=== PATIENT | female | born 1960 | race Caucasian/White ===

== ENCOUNTER 2019-11-28 12:28 | Emergency (ER) | payer MEDICARE, SELFPAY ==
[2019-11-28 12:39] VITALS: BP 145/99; PULSE 93; RESP 20; TEMP 36.4; O2SAT 98
--- NOTE | 2019-11-28 12:49 | ED.EAR ---
HPI - Ear Problem General Chief complaint: Ear Stated complaint: left ear uncomfort Source: patient and RN notes reviewed Mode of arrival: ambulatory Limitations: no limitations History of Present Illness HPI Narrative: Patient is a 59-year-old female who presents complaining of left ear fullness. She reports intermittent pain. Reports a long history of sinus problems and surgeries. She denies other complaints at this time. MD Complaint: ear pain Location: left ear Related Data Home Medications Medication Instructions Recorded Confirmed gabapentin 100 mg PO TID 11/28/19 11/28/19 levothyroxine 125 mcg DAILY 11/28/19 11/28/19 magnesium oxide 400 mg DAILY 11/28/19 11/28/19 mycophenolate mofetil 500 mg PO BID 11/28/19 11/28/19 omeprazole 20 mg PO BID 11/28/19 11/28/19 tacrolimus 0.5 mg DAILY 11/28/19 11/28/19 tacrolimus 1 mg BID 11/28/19 11/28/19 Allergies Allergy/AdvReac Type Severity Reaction Status Date / Time erythromycin base Allergy Unknown Verified 09/14/17 15:59 Penicillins Allergy Unknown Verified 05/30/19 13:04 Review of Systems Review of Systems: Narrative: CONSTITUTIONAL: Denies fever, chills, or sweats. EYES: Denies visual changes, redness, or discharge. ENT: Denies rhinorrhea, congestion, sore throat, reports intermittent left otalgia. CARDIOVASCULAR: Denies chest pain, palpitations, or edema. RESPIRATORY: Denies cough or dyspnea. GASTROINTESTINAL: Denies abdominal pain, nausea, vomiting, or diarrhea. GENITOURINARY: Denies dysuria or hematuria. SKIN: Denies rash or itching. MUSCULOSKELETAL: Denies back pain, joint pain, or myalgia. NEUROLOGIC: Denies headache, numbness, dizziness, or weakness. PSYCHIATRIC: Denies anxiety or depression. [facility] Past Medical History Medical History Arthritis GERD (gastroesophageal reflux disease) Hypothyroidism Surgical History Surgical History Liver transplant recipient Family History Family History Other Diabetes mellitus Family history of malignant neoplasm of breast Family history of type 1 diabetes mellitus Social History Social History Smoking status: Never smoker Second hand tobacco smoke exposure: No Alcohol intake: never Gender identity (if verbalized by the patient): Female Exam Narrative: Exam Narrative: GENERAL: Well-appearing, well-nourished, and in no acute distress. HEAD: Normocephalic, atraumatic. EYES: EOMI. No redness or drainage. Conjunctiva are normal. ENT: Mucous membranes pink and moist. Nares clear. No rhinorrhea. TMs normal bilaterally. Throat normal. Uvula midline. NECK: AROM. Supple. No lymphadenopathy. CHEST: No respiratory distress. Clear to auscultation. HEART: Regular rate and rhythm. No murmur appreciated. Normal peripheral pulses. SKIN: Warm, dry, no rash. NEURO: No focal deficits. Alert and oriented x3. Gait steady. PSYCH: Normal affect. No signs of depression or anxiety. Course Vital Signs Vital signs: Vital Signs Temperature 36.4 C 11/28/19 12:39 Pulse Rate 93 11/28/19 12:39 Respiratory Rate 20 11/28/19 12:39 Blood Pressure 145/99 H 11/28/19 12:39 Pulse Oximetry 98 11/28/19 12:39 Temperature 36.4 C 11/28/19 12:39 Pulse Rate 93 11/28/19 12:39 Respiratory Rate 20 11/28/19 12:39 Blood Pressure 145/99 H 11/28/19 12:39 Pulse Oximetry 98 11/28/19 12:39 Medical Decision Making MDM Narrative Medical decision making narrative: Patient has normal exam. Tympanic membrane and bilateral ears is normal, no erythema or injection. Discussed results with patient. Discussed with patient that following up with ENT specialist should occur because of multiple complex ENT surgeries. Patient does not have an ENT at this time, referral provided. Patient is
== END 2019-11-28 12:56 | disposition home or self-care (01) ==
PROVIDERS: Emergency Provider Nurse Practitioner; PCP Family Medicine
DX: H92.02 Otalgia, left ear (principal); M19.90 Unspecified osteoarthritis, unspecified site; K21.9 Gastro-esophageal reflux disease without esophagitis; E03.9 Hypothyroidism, unspecified; Z94.4 Liver transplant status
CPT/HCPCS: 99211; G0463

== ENCOUNTER 2019-11-29 07:33 | Outpatient (CLI) | payer MEDICARE, SELFPAY ==
--- NOTE | ~2019-11-29 | US_ITS ---
EXAMINATION: US right upper quadrant EXAM DATE: 11/29/2019 08:24 INDICATION: History of liver transplant in February 2014. History of autoimmune hepatitis, cholecystecto my. TECHNIQUE: Multiple grayscale and Doppler images of the abdomen right upper quadrant were obtained (b y a technologist who performed the scan) and subsequently reviewed. There is no prior study for araceli thorpe. FINDINGS: The pancreatic head and body are normal in appearance. The pancreatic tail is not visualized. The l iver has normal echogenicity and contour. There are no focal liver lesions identified. There is no evidence of intrahepatic biliary duct dilation. Portal venous flow was seen in the hepatopedal, nor mal direction and has normal Doppler waveform. No right-sided hydronephrosis. Common bile duct measures 5 mm, which is normal. The gallbladder fossa is unremarkable. IMPRESSION: 1. Unremarkable abdominal ultrasound exam. Reviewed, dictated and finalized at location B. 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
== END 2019-11-29 07:34 | disposition home or self-care (01) ==
PROVIDERS: PCP Family Medicine
DX: Z94.4 Liver transplant status (principal)
CPT/HCPCS: 76705

== ENCOUNTER 2020-02-20 07:14 | Outpatient (RCR) | payer MEDICARE, SELFPAY ==
[2020-02-20 07:56] LABS: Hematocrit 38.1 % (37.0-47.0); Hemoglobin 12.5 g/dL (12.0-15.0); Mean Corpuscular HGB Conc 32.8 g/dl (32-36); Mean Corpuscular Hemoglobin 30.5 pg (26-34); Mean Corpuscular Volume 92.9 fl (80-100); Mean Platelet Volume 9.5 fl (7.4-10.4); Platelet Count Result 202 k/mm3 (150-375); White Blood Count 3.9 K/mm3 (4.5-10.0)
[2020-02-20 08:11] LABS: Alanine Aminotransferase 17 U/L (4-35); Albumin Level 4.4 g/dL (3.5-5.1); Alkaline Phosphatase 78 U/L (38-126); Aspartate Amino Transferase 29 U/L (14-36); Bilirubin,Total 0.3 mg/dL (0.2-1.3); Blood Urea Nitrogen 16 mg/dL (7-17); Carbon Dioxide 27 mmol/L (22-30); Chloride 104 mmol/L (98-107); Estimated Glomerular Filt Rate 57; Glucose 115 mg/dL (65-105); Potassium 4.3 mmol/L (3.4-5.0); Sodium 137 mmol/L (137-145)
[2020-02-22 04:12] LABS: GGT 11 U/L (3-70)
[2020-02-23 01:52] LABS: Tacrolimus Prograf 3.1 mcg/L
== END 2020-05-20 23:59 | disposition home or self-care (01) ==
LOC: ANHLAB 07:14
PROVIDERS: PCP Family Medicine; Visit Provider Internal Medicine Gastroenterology
DX: Z94.4 Liver transplant status (principal)
CPT/HCPCS: 36415; 80053; 80197; 82977; 85027

== ENCOUNTER 2020-03-29 12:12 | Outpatient (CLI) | payer MEDICARE, SELFPAY ==
--- NOTE | ~2020-03-29 | XR_ITS ---
XR knee LT 3V 03/29/2020 12:39 INDICATION: Left knee pain PROCEDURE: 3 views left knee COMPARISON: No prior studies for comparison. FINDINGS: Fracture, dislocation or subluxation is not identified. No significant joint effusion. The soft tissues appear within normal limits. No foreign bodies are identified. IMPRESSION: 1: NO ACUTE BONE OR JOINT ABNORMALITY IDENTIFIED. Reviewed, dictated and finalized at location A.
== END 2020-03-29 12:13 | disposition home or self-care (01) ==
PROVIDERS: PCP Family Medicine; Visit Provider Physician Assistant
DX: S89.92XA Unspecified injury of left lower leg, initial encounter (principal)
CPT/HCPCS: 73562

== ENCOUNTER 2020-05-11 15:07 | Outpatient (CLI) | payer MEDICARE, SELFPAY ==
--- NOTE | ~2020-05-11 | MM_ITS ---
EXAMINATION: MM screening aleks BI w nando HISTORY: Screening TECHNIQUE: Craniocaudal and mediolateral oblique 3-D tomosynthesis images were obtained and synthetic 2-D images were generated. CAD analysis was submitted and interpreted. COMPARISON: Comparison to multiple prior studies sequentially, with oldest reviewed study dated 03/04. BREAST PARENCHYMAL COMPOSITION: There are scattered areas of fibroglandular density. FINDINGS: There is no evidence of suspicious mass, calcification, or architectural distortion to sugg est malignancy in either breast. There has been no suspicious interval change. IMPRESSION: 1. No mammographic evidence of malignancy. 2. Recommend routine screening mammography in one year. BI-RADS Category 1: Negative Reviewed, dictated and finalized at location A.
== END 2020-05-11 15:08 | disposition home or self-care (01) ==
LOC: ANHIMG 15:09
PROVIDERS: PCP Family Medicine; Visit Provider Family Medicine
DX: Z12.31 Encounter for screening mammogram for malignant neoplasm of breast (principal)
CPT/HCPCS: 77063; 77067

== ENCOUNTER 2020-05-21 07:33 | Outpatient (RCR) | payer MEDICARE, SELFPAY ==
[2020-05-21 08:14] LABS: Hematocrit 41.7 % (37.0-47.0); Hemoglobin 13.6 g/dL (12.0-15.0); Mean Corpuscular HGB Conc 32.6 g/dl (32-36); Mean Corpuscular Hemoglobin 30.4 pg (26-34); Mean Corpuscular Volume 93.3 fl (80-100); Mean Platelet Volume 9.8 fl (7.4-10.4); Platelet Count Result 185 k/mm3 (150-375); Red Blood Count 4.47 M/mm3 (4.2-5.4); Red Cell Distribution Width 13.1 % (11.5-14.5); White Blood Count 4.1 K/mm3 (4.5-10.0)
[2020-05-21 08:27] LABS: Alanine Aminotransferase 39 U/L (4-35); Albumin Level 4.4 g/dL (3.5-5.1); Alkaline Phosphatase 78 U/L (38-126); Anion Gap 11.3 mmol/L (7-16); Aspartate Amino Transferase 39 U/L (14-36); Bilirubin,Total 0.5 mg/dL (0.2-1.3); Blood Urea Nitrogen 11 mg/dL (7-17); Calcium 9.4 mg/dL (8.4-10.2); Carbon Dioxide 27 mmol/L (22-30); Chloride 103 mmol/L (98-107); Estimated Glomerular Filt Rate 57; Glucose 108 mg/dL (65-105); Potassium 4.3 mmol/L (3.4-5.0); Sodium 137 mmol/L (137-145)
[2020-05-21 09:11] LABS: Free T4 Free Thyroxine 1.01 ng/mL (0.78-2.19)
[2020-05-22 18:18] LABS: GGT 16 U/L (3-70)
== END 2020-08-19 23:59 | disposition home or self-care (01) ==
LOC: ANHLAB 07:33
PROVIDERS: PCP Physician Assistant; Visit Provider Internal Medicine Gastroenterology
DX: Z51.81 Encounter for therapeutic drug level monitoring (principal); Z94.4 Liver transplant status; Z79.899 Other long term (current) drug therapy
CPT/HCPCS: 36415; 80053; 80197; 82977; 83735; 84439; 84443; 85027

== ENCOUNTER 2020-06-21 07:17 | Outpatient (CLI) | payer MEDICARE, SELFPAY ==
[2020-06-21 07:47] LABS: Basophils Percent Auto 0.6 % (0.2-1.2); Eosinophils Absolute Auto 0.1 K/mm3 (0-0.3); Eosinophils Percent Auto 3.3 % (0-4.4); Hematocrit 39.8 % (37.0-47.0); Hemoglobin 13.2 g/dL (12.0-15.0); Immature Granulocyte Absolute 0.01 K/mm3 (0.00-0.031); Immature Granulocyte Percent A 0.3 % (0-0.5); Lymphocytes Absolute Auto 1.19 K/mm3 (0.9-3.2); Lymphocytes Percent Auto 32.9 % (18.3-44.2); Mean Corpuscular HGB Conc 33.2 g/dl (32-36); Mean Corpuscular Hemoglobin 30.6 pg (26-34); Mean Corpuscular Volume 92.1 fl (80-100); Mean Platelet Volume 9.7 fl (7.4-10.4); Monocytes Absolute Auto 0.2 K/mm3 (0.1-0.6); Monocytes Percent Auto 5.8 % (2.6-8.5); Neutrophils Absolute Auto 2.1 K/mm3 (1.3-6.7); Neutrophils Percent Auto 57.1 % (45.5-73.1); Platelet Count Result 200 k/mm3 (150-375); Red Blood Count 4.32 M/mm3 (4.2-5.4); Red Cell Distribution Width 12.9 % (11.5-14.5); White Blood Count 3.6 K/mm3 (4.5-10.0)
[2020-06-21 07:57] LABS: Alanine Aminotransferase 35 U/L (4-35); Albumin Level 4.3 g/dL (3.5-5.1); Alkaline Phosphatase 75 U/L (38-126); Anion Gap 6 mmol/L (8-16); Aspartate Amino Transferase 37 U/L (14-36); Bilirubin,Total 0.5 mg/dL (0.2-1.3); Blood Urea Nitrogen 10 mg/dL (7-17); Calcium 9.4 mg/dL (8.4-10.2); Carbon Dioxide 28 mmol/L (22-30); Chloride 103 mmol/L (98-107); Estimated Glomerular Filt Rate 57; Glucose 109 mg/dL (65-105); Potassium 4.7 mmol/L (3.4-5.0); Sodium 137 mmol/L (137-145)
[2020-06-24 05:04] LABS: Tacrolimus Prograf 3.4 mcg/L
[2020-06-25 04:25] LABS: GGT 17 U/L (3-70)
== END 2020-06-21 07:18 | disposition home or self-care (01) ==
LOC: ANHLAB 07:20
PROVIDERS: PCP Physician Assistant; Visit Provider Internal Medicine Gastroenterology
DX: Z94.4 Liver transplant status (principal)
CPT/HCPCS: 36415; 80053; 80197; 82977; 85025

== ENCOUNTER 2020-12-19 07:10 | Outpatient (RCR) | payer MEDICARE, SELFPAY ==
[2020-09-20 07:38] LABS: Hematocrit 40.6 % (37.0-47.0); Hemoglobin 13.6 g/dL (12.0-15.0); Mean Corpuscular HGB Conc 33.5 g/dl (32-36); Mean Corpuscular Hemoglobin 30.6 pg (26-34); Mean Corpuscular Volume 91.2 fl (80-100); Mean Platelet Volume 9.4 fl (7.4-10.4); Platelet Count Result 191 k/mm3 (150-375); Red Blood Count 4.45 M/mm3 (4.2-5.4); Red Cell Distribution Width 12.7 % (11.5-14.5); White Blood Count 3.6 K/mm3 (4.5-10.0)
[2020-09-20 07:51] LABS: Alanine Aminotransferase 36 U/L (4-35); Albumin Level 4.1 g/dL (3.5-5.1); Alkaline Phosphatase 75 U/L (38-126); Anion Gap 7 mmol/L (8-16); Aspartate Amino Transferase 37 U/L (14-36); Bilirubin,Total 0.5 mg/dL (0.2-1.3); Blood Urea Nitrogen 12 mg/dL (7-17); Calcium 9.4 mg/dL (8.4-10.2); Carbon Dioxide 27 mmol/L (22-30); Chloride 104 mmol/L (98-107); Estimated Glomerular Filt Rate 57; Glucose 119 mg/dL (65-105); Potassium 4.5 mmol/L (3.4-5.0); Sodium 138 mmol/L (137-145)
[2020-09-23 20:24] LABS: Tacrolimus Prograf 2.8 mcg/L
[2020-10-09 21:55] LABS: GGT 18 U/L (3-70)
[2020-12-19 07:42] LABS: Hematocrit 40.8 % (37.0-47.0); Hemoglobin 13.3 g/dL (12.0-15.0); Mean Corpuscular HGB Conc 32.6 g/dl (32-36); Mean Corpuscular Hemoglobin 30.1 pg (26-34); Mean Corpuscular Volume 92.3 fl (80-100); Mean Platelet Volume 9.8 fl (7.4-10.4); Platelet Count Result 195 k/mm3 (150-375); Red Blood Count 4.42 M/mm3 (4.2-5.4); Red Cell Distribution Width 12.9 % (11.5-14.5); White Blood Count 3.3 K/mm3 (4.5-10.0)
[2020-12-19 08:01] LABS: Alanine Aminotransferase 26 U/L (4-35); Alkaline Phosphatase 75 U/L (38-126); Anion Gap 4 mmol/L (8-16); Aspartate Amino Transferase 31 U/L (14-36); Bilirubin,Total 0.4 mg/dL (0.2-1.3); Blood Urea Nitrogen 11 mg/dL (7-17); Calcium 8.9 mg/dL (8.4-10.2); Carbon Dioxide 31 mmol/L (22-30); Chloride 104 mmol/L (98-107); Estimated Glomerular Filt Rate 57; Glucose 111 mg/dL (65-105); Potassium 4.6 mmol/L (3.4-5.0); Sodium 139 mmol/L (137-145)
[2020-12-21 09:53] LABS: Tacrolimus Prograf 3.4 mcg/L
[2020-12-22 14:17] LABS: GGT 16 U/L (3-70)
== END 2020-12-19 23:59 | disposition home or self-care (01) ==
LOC: ANHLAB 07:10
PROVIDERS: PCP Family Medicine; Visit Provider Internal Medicine Gastroenterology
DX: Z94.4 Liver transplant status (principal)
CPT/HCPCS: 36415; 80053; 80197; 82977; 85027

== ENCOUNTER 2021-03-21 07:06 | Outpatient (RCR) | payer MEDICARE, SELFPAY ==
[2021-03-21 07:56] LABS: Alanine Aminotransferase 27 U/L (4-35); Alkaline Phosphatase 82 U/L (38-126); Anion Gap 6 mmol/L (8-16); Aspartate Amino Transferase 33 U/L (14-36); Bilirubin,Total 0.4 mg/dL (0.2-1.3); Blood Urea Nitrogen 14 mg/dL (7-17); Calcium 9.6 mg/dL (8.4-10.2); Carbon Dioxide 28 mmol/L (22-30); Chloride 106 mmol/L (98-107); Estimated Glomerular Filt Rate > 60; Glucose 105 mg/dL (65-105); Potassium 4.5 mmol/L (3.4-5.0); Sodium 140 mmol/L (137-145)
[2021-03-21 08:38] LABS: Hematocrit 40.4 % (37.0-47.0); Hemoglobin 12.9 g/dL (12.0-15.0); Mean Corpuscular HGB Conc 31.9 g/dl (32-36); Mean Corpuscular Hemoglobin 30.3 pg (26-34); Mean Corpuscular Volume 94.8 fl (80-100); Mean Platelet Volume 10.3 fl (7.4-10.4); Platelet Count Result 186 k/mm3 (150-375); Red Blood Count 4.26 M/mm3 (4.2-5.4); Red Cell Distribution Width 12.7 % (11.5-14.5); White Blood Count 3.6 K/mm3 (4.5-10.0)
[2021-03-25 08:25] LABS: GGT 15 U/L (3-70)
== END 2021-06-19 23:59 | disposition home or self-care (01) ==
LOC: ANHLAB 07:06
PROVIDERS: PCP Family Medicine; Visit Provider Internal Medicine Gastroenterology
DX: Z94.4 Liver transplant status (principal)
CPT/HCPCS: 36415; 80053; 80197; 82977; 85027

== ENCOUNTER 2021-05-16 07:55 | Outpatient (CLI) | payer MEDICARE, SELFPAY ==
--- NOTE | ~2021-05-16 | MM_ITS ---
EXAMINATION: MM screening aleks BI w nando HISTORY: Screening mammogram TECHNIQUE: Craniocaudal and mediolateral oblique 3-D tomosynthesis images were obtained and synthetic 2-D images were generated. CAD analysis was submitted and interpreted. COMPARISON: 05/11/2020, 04/29/2019, 03/04/2018 bilateral digital screening mammogram examinations BREAST PARENCHYMAL COMPOSITION: There are scattered areas of fibroglandular density. FINDINGS: New 6 mm circumscribed mass in the outer mid posterior left breast. Adjacent 2.7 mm circums cribed mass. New asymmetric increased density in the anterior outer right breast on CC projection. Bilateral diagnostic mammography and ultrasound examination are recommended. IMPRESSION: 1. New asymmetric increased density and anterior outer right breast on CC projection and new 6 mm and 2.7 mm circumscribed mass is in the outer mid left breast. 2. Bilateral diagnostic mammography and breast ultrasound examination are recommended. BI-RADS Category 0: Incomplete: Needs additional imaging evaluation. Reviewed, dictated and finalized at location A. IMPRESSION: 1. New asymmetric increased density and anterior outer right breast on CC proje ction and new 6 mm and 2.7 mm circumscribed mass is in the outer mid left breas t. 2. Bilateral diagnostic mammography and breast ultrasound examination are recom mended. BI-RADS Category 0: Incomplete: Needs additional imaging evaluation.
== END 2021-05-16 07:56 | disposition home or self-care (01) ==
LOC: ANHIMG 08:00
PROVIDERS: PCP Family Medicine; Visit Provider Family Medicine
DX: Z12.31 Encounter for screening mammogram for malignant neoplasm of breast (principal); R92.8 Other abnormal and inconclusive findings on diagnostic imaging of breast
CPT/HCPCS: 77063; 77067

== ENCOUNTER 2021-06-12 12:50 | Outpatient (CLI) | payer MEDICARE, SELFPAY ==
--- NOTE | ~2021-06-12 | MMUS_ITS ---
EXAMINATION: MM diagnostic aleks BI w nando, US breast BI limited HISTORY: Possible bilateral breast masses on screening mammogram TECHNIQUE: Additional 3-D tomosynthesis images of the breasts were performed and synthetic 2-D images were generated. CAD analysis was submitted and interpreted. High resolution limited bilateral breast ultrasound was performed. COMPARISON: 05/16/2021, 05/11/2020, 04/29/2019, 03/04/2018 FINDINGS: MAMMOGRAPHIC FINDINGS: Left breast: There is a 6 mm oval, obscured, low density mass in the middle third of the outer breast at the 2:00 location 8 cm from the nipple. Right breast: There is a persistent asymmetry in the middle third of the outer breast approximately 6 .5 cm from the nipple on the craniocaudal view. ULTRASOUND: Left breast: There is a 6 mm x 3 mm oval, circumscribed, parallel, hypoechoic mass with no posterior features or internal vascularity at the 2:00 location 5 cm from the nipple. Right breast: No sonographic correlate is identified for the asymmetry identified in the outer breast on the craniocaudal view. There is questionable 4 mm hypoechoic mass at the 1:00 location 2 cm from the nipple. IMPRESSION: 1. Probably benign left breast mass and right breast asymmetry. 2. Recommend 6 month follow-up bilateral diagnostic mammogram and ultrasound. BI-RADS category 3, probably benign findings. Reviewed, dictated and finalized at location A. IMPRESSION: 1. Probably benign left breast mass and right breast asymmetry. 2. Recommend 6 month follow-up bilateral diagnostic mammogram and ultrasound. BI-RADS category 3, probably benign findings.
== END 2021-06-12 12:51 | disposition home or self-care (01) ==
PROVIDERS: PCP Family Medicine; Visit Provider Physician Assistant
DX: R92.8 Other abnormal and inconclusive findings on diagnostic imaging of breast (principal)
CPT/HCPCS: 76642; 77062; 77066; G0279

== ENCOUNTER 2021-12-20 07:17 | Outpatient (RCR) | payer MEDICARE, SELFPAY ==
[2021-09-21 08:32] LABS: Alanine Aminotransferase 20 U/L (4-35); Albumin Level 4.4 g/dL (3.5-5.1); Alkaline Phosphatase 94 U/L (38-126); Anion Gap 8 mmol/L (8-16); Aspartate Amino Transferase 28 U/L (14-36); Bilirubin,Total 0.3 mg/dL (0.2-1.3); Blood Urea Nitrogen 12 mg/dL (7-17); Calcium 9.2 mg/dL (8.4-10.2); Carbon Dioxide 24 mmol/L (22-30); Chloride 103 mmol/L (98-107); Estimated Glomerular Filt Rate > 60; Glucose 110 mg/dL (65-110); Potassium 3.8 mmol/L (3.4-5.0); Sodium 135 mmol/L (137-145)
[2021-09-21 08:33] LABS: Hematocrit 40.3 % (37.0-47.0); Hemoglobin 13.6 g/dL (12.0-15.0); Mean Corpuscular HGB Conc 33.7 g/dl (32-36); Mean Corpuscular Hemoglobin 31.1 pg (26-34); Mean Corpuscular Volume 92.2 fl (80-100); Mean Platelet Volume 10.2 fl (7.4-10.4); Platelet Count Result 211 k/mm3 (150-375); Red Blood Count 4.37 M/mm3 (4.2-5.4); Red Cell Distribution Width 12.4 % (11.5-14.5); White Blood Count 3.8 K/mm3 (4.5-10.0)
[2021-09-24 14:44] LABS: Tacrolimus Prograf 3.8 mcg/L
[2021-09-24 16:58] LABS: GGT 13 U/L (3-70)
[2021-12-20 07:42] LABS: Hematocrit 42.9 % (37.0-47.0); Mean Corpuscular HGB Conc 32.6 g/dl (32-36); Mean Corpuscular Hemoglobin 30.8 pg (26-34); Mean Corpuscular Volume 94.3 fl (80-100); Mean Platelet Volume 9.6 fl (7.4-10.4); Platelet Count Result 200 k/mm3 (150-375); Red Blood Count 4.55 M/mm3 (4.2-5.4); Red Cell Distribution Width 12.8 % (11.5-14.5)
[2021-12-20 07:54] LABS: Alanine Aminotransferase 17 U/L (4-35); Albumin Level 4.2 g/dL (3.5-5.1); Alkaline Phosphatase 88 U/L (38-126); Anion Gap 8 mmol/L (8-16); Aspartate Amino Transferase 26 U/L (14-36); Bilirubin,Total 0.6 mg/dL (0.2-1.3); Blood Urea Nitrogen 13 mg/dL (7-17); Calcium 9.1 mg/dL (8.4-10.2); Carbon Dioxide 26 mmol/L (22-30); Chloride 106 mmol/L (98-107); Estimated Glomerular Filt Rate > 60; Glucose 110 mg/dL (65-110); Potassium 4.3 mmol/L (3.4-5.0); Sodium 140 mmol/L (137-145)
[2021-12-22 15:03] LABS: GGT 13 U/L (3-70)
[2021-12-24 01:22] LABS: Tacrolimus Prograf 3.5 mcg/L
== END 2021-12-20 23:59 | disposition home or self-care (01) ==
LOC: ANHLAB 07:17
PROVIDERS: PCP Family Medicine; Visit Provider Internal Medicine Gastroenterology
DX: Z94.4 Liver transplant status (principal)
CPT/HCPCS: 36415; 80053; 80197; 82977; 85027

== ENCOUNTER 2022-05-13 12:00 | Outpatient (CLI) | payer MEDICARE, SELFPAY ==
[2022-05-13 13:09] LABS: Free T4 Free Thyroxine 1.06 ng/mL (0.78-2.19)
[2022-05-17 06:48] LABS: Triiodothyronine T3 Free 2.8 pg/mL (2.3-4.2)
== END 2022-05-13 12:01 | disposition home or self-care (01) ==
LOC: ANHLAB 12:01
PROVIDERS: PCP Family Medicine; Visit Provider Physician Assistant
DX: E07.9 Disorder of thyroid, unspecified (principal); E03.9 Hypothyroidism, unspecified
CPT/HCPCS: 36415; 84439; 84443; 84481

== ENCOUNTER 2022-05-23 12:05 | Outpatient (CLI) | payer MEDICARE, SELFPAY ==
--- NOTE | ~2022-05-23 | MMUS_ITS ---
EXAMINATION: MM diagnostic aleks BI w nando, US breast LT limited HISTORY: Follow-up right breast asymmetry and left breast mass TECHNIQUE: Additional 3-D tomosynthesis images of the breasts were performed and synthetic 2-D images were generated. CAD analysis was submitted and interpreted. High resolution Limited left breast ultr asound was performed. COMPARISON: Comparison to multiple prior studies sequentially, with oldest reviewed study dated 03/04. BREAST PARENCHYMAL COMPOSITION: Breast composed of scattered areas of fibroglandular density FINDINGS: MAMMOGRAPHIC FINDINGS: Right breast is stable without evidence for malignancy. There is a stable small circumscribed radiolu cent mass in the upper outer quadrant of the left breast, unchanged compared with 05/16/2021. ULTRASOUND: Limited left breast ultrasound: At 2:00, 5 cm from the nipple there is a 6 mm cyst. No suspicious mas ses to suggest malignancy. IMPRESSION: 1. No evidence for malignancy in either breast. Benign findings. 2. Routine yearly screening mammogram and regular clinical breast examination are recommended. BI-RADS Category 2: Benign finding(s). Reviewed, dictated and finalized at location A. IMPRESSION: 1. No evidence for malignancy in either breast. Benign findings. 2. Routine yearly screening mammogram and regular clinical breast examination a re recommended. BI-RADS Category 2: Benign finding(s).
== END 2022-05-23 12:06 | disposition home or self-care (01) ==
LOC: ANHIMG 12:07
PROVIDERS: PCP Family Medicine; Visit Provider Physician Assistant
DX: R92.8 Other abnormal and inconclusive findings on diagnostic imaging of breast (principal)
CPT/HCPCS: 76642; 77062; 77066; G0279

== ENCOUNTER 2022-06-20 07:23 | Outpatient (RCR) | payer MEDICARE, SELFPAY ==
[2022-03-31 07:34] LABS: Basophils Percent Auto 0.6 % (0.2-1.2); Eosinophils Absolute Auto 0.1 K/mm3 (0-0.3); Eosinophils Percent Auto 2.3 % (0-4.4); Hematocrit 41.8 % (37.0-47.0); Hemoglobin 14.1 g/dL (12.0-15.0); Immature Granulocyte Absolute 0.01 K/mm3 (0.00-0.031); Immature Granulocyte Percent A 0.2 % (0-0.5); Lymphocytes Absolute Auto 1.58 K/mm3 (0.9-3.2); Mean Corpuscular HGB Conc 33.7 g/dl (32-36); Mean Corpuscular Hemoglobin 31.1 pg (26-34); Mean Corpuscular Volume 92.3 fl (80-100); Mean Platelet Volume 9.5 fl (7.4-10.4); Monocytes Absolute Auto 0.3 K/mm3 (0.1-0.6); Monocytes Percent Auto 7.1 % (2.6-8.5); Neutrophils Absolute Auto 2.7 K/mm3 (1.3-6.7); Neutrophils Percent Auto 56.8 % (45.5-73.1); Platelet Count Result 225 k/mm3 (150-375); Red Blood Count 4.53 M/mm3 (4.2-5.4); Red Cell Distribution Width 13.1 % (11.5-14.5); White Blood Count 4.8 K/mm3 (4.5-10.0)
[2022-03-31 07:45] LABS: Alanine Aminotransferase 16 U/L (6-35); Albumin Level 4.4 g/dL (3.5-5.1); Alkaline Phosphatase 93 U/L (38-126); Anion Gap 8 mmol/L (8-16); Aspartate Amino Transferase 24 U/L (14-36); Bilirubin,Total 0.6 mg/dL (0.2-1.3); Blood Urea Nitrogen 14 mg/dL (7-17); Calcium 8.9 mg/dL (8.4-10.2); Carbon Dioxide 23 mmol/L (22-30); Chloride 107 mmol/L (98-107); Estimated Glomerular Filt Rate 57; Glucose 115 mg/dL (65-110); Potassium 4.3 mmol/L (3.4-5.0); Sodium 138 mmol/L (137-145)
[2022-04-02 14:19] LABS: GGT 10 U/L (3-70)
[2022-04-03 06:23] LABS: Tacrolimus Prograf 3.8 mcg/L
[2022-06-20 09:18] LABS: Basophils Percent Auto 0.4 % (0.2-1.2); Eosinophils Absolute Auto 0.1 K/mm3 (0-0.3); Eosinophils Percent Auto 1.6 % (0-4.4); Hematocrit 40.7 % (37.0-47.0); Hemoglobin 13.5 g/dL (12.0-15.0); Immature Granulocyte Absolute 0.01 K/mm3 (0.00-0.031); Immature Granulocyte Percent A 0.2 % (0-0.5); Lymphocytes Absolute Auto 1.32 K/mm3 (0.9-3.2); Lymphocytes Percent Auto 29.6 % (18.3-44.2); Mean Corpuscular HGB Conc 33.2 g/dl (32-36); Mean Corpuscular Hemoglobin 30.8 pg (26-34); Mean Corpuscular Volume 92.7 fl (80-100); Mean Platelet Volume 10.2 fl (7.4-10.4); Monocytes Absolute Auto 0.3 K/mm3 (0.1-0.6); Monocytes Percent Auto 6.7 % (2.6-8.5); Neutrophils Absolute Auto 2.7 K/mm3 (1.3-6.7); Neutrophils Percent Auto 61.5 % (45.5-73.1); Platelet Count Result 217 k/mm3 (150-375); Red Blood Count 4.39 M/mm3 (4.2-5.4); Red Cell Distribution Width 12.5 % (11.5-14.5); White Blood Count 4.5 K/mm3 (4.5-10.0)
[2022-06-20 09:28] LABS: Alanine Aminotransferase 19 U/L (6-35); Albumin Level 4.1 g/dL (3.5-5.1); Alkaline Phosphatase 85 U/L (38-126); Anion Gap 9 mmol/L (8-16); Aspartate Amino Transferase 25 U/L (14-36); Bilirubin,Total 0.5 mg/dL (0.2-1.3); Blood Urea Nitrogen 11 mg/dL (7-17); Calcium 9.1 mg/dL (8.4-10.2); Carbon Dioxide 26 mmol/L (22-30); Chloride 105 mmol/L (98-107); Estimated Glomerular Filt Rate > 60; Glucose 104 mg/dL (65-110); Potassium 3.9 mmol/L (3.4-5.0); Sodium 140 mmol/L (137-145)
[2022-06-23 07:41] LABS: Tacrolimus Prograf 3.3 mcg/L
[2022-06-23 15:45] LABS: GGT 11 U/L (3-70)
== END 2022-06-29 23:59 | disposition home or self-care (01) ==
LOC: ANHLAB 07:23
PROVIDERS: PCP Family Medicine; Visit Provider Internal Medicine Gastroenterology
DX: Z51.81 Encounter for therapeutic drug level monitoring (principal); Z94.4 Liver transplant status; Z79.899 Other long term (current) drug therapy
CPT/HCPCS: 36415; 80053; 80197; 82652; 82977; 85025

== ENCOUNTER 2022-06-20 07:24 | Outpatient (CLI) | payer MEDICARE, SELFPAY ==
[2022-06-24 12:54] LABS: Vitamin D 1,25 (OH)2 Total 46 pg/mL (18-72); Vitamin D2 1,25 (OH)2 <8 pg/mL; Vitamin D3 1,25 (OH)2 46 pg/mL
== END 2022-06-20 07:25 | disposition home or self-care (01) ==
LOC: ANHLAB 07:26
PROVIDERS: PCP Family Medicine; Visit Provider Family Medicine
DX: E55.9 Vitamin D deficiency, unspecified (principal)
CPT/HCPCS: 36415; 82652

== ENCOUNTER 2022-09-19 07:08 | Outpatient (RCR) | payer MEDICARE, SELFPAY ==
[2022-09-19 07:56] LABS: Basophils Percent Auto 0.5 % (0.2-1.2); Eosinophils Absolute Auto 0.1 K/mm3 (0-0.3); Eosinophils Percent Auto 1.8 % (0-4.4); Hematocrit 41.2 % (37.0-47.0); Hemoglobin 13.6 g/dL (12.0-15.0); Immature Granulocyte Absolute 0.01 K/mm3 (0.00-0.031); Immature Granulocyte Percent A 0.3 % (0-0.5); Lymphocytes Percent Auto 31.6 % (18.3-44.2); Mean Corpuscular Hemoglobin 29.9 pg (26-34); Mean Corpuscular Volume 90.5 fl (80-100); Mean Platelet Volume 10.1 fl (7.4-10.4); Monocytes Absolute Auto 0.3 K/mm3 (0.1-0.6); Monocytes Percent Auto 7.4 % (2.6-8.5); Neutrophils Absolute Auto 2.2 K/mm3 (1.3-6.7); Neutrophils Percent Auto 58.4 % (45.5-73.1); Platelet Count Result 216 k/mm3 (150-375); Red Blood Count 4.55 M/mm3 (4.2-5.4); Red Cell Distribution Width 12.8 % (11.5-14.5); White Blood Count 3.8 K/mm3 (4.5-10.0)
[2022-09-19 08:14] LABS: Alanine Aminotransferase 26 U/L (6-35); Albumin Level 4.3 g/dL (3.5-5.1); Alkaline Phosphatase 77 U/L (38-126); Anion Gap 6 mmol/L (8-16); Aspartate Amino Transferase 27 U/L (14-36); Bilirubin,Total 0.6 mg/dL (0.2-1.3); Blood Urea Nitrogen 10 mg/dL (7-17); Calcium 9.1 mg/dL (8.4-10.2); Carbon Dioxide 28 mmol/L (22-30); Chloride 106 mmol/L (98-107); Estimated Glomerular Filt Rate > 60; Glucose 115 mg/dL (65-110); Potassium 3.9 mmol/L (3.4-5.0); Sodium 140 mmol/L (137-145)
[2022-09-23 06:19] LABS: GGT 12 U/L (3-65)
[2022-09-23 07:00] LABS: Tacrolimus Prograf 3.5 mcg/L
== END 2022-12-18 23:59 | disposition home or self-care (01) ==
LOC: ANHLAB 07:08
PROVIDERS: PCP Family Medicine; Visit Provider Internal Medicine Gastroenterology
DX: Z51.81 Encounter for therapeutic drug level monitoring (principal); Z94.4 Liver transplant status; Z79.899 Other long term (current) drug therapy
CPT/HCPCS: 36415; 80053; 80197; 82977; 85025

== ENCOUNTER 2023-02-02 10:43 | Outpatient (CLI) | payer MEDICARE, SELFPAY ==
[2023-02-02 11:54] LABS: Free T4 Free Thyroxine 1.41 ng/mL (0.78-2.19)
[2023-02-02 12:04] LABS: Thyroid Stimulating Hormone 0.117 uIU/mL (0.465-4.680)
[2023-02-05 04:00] LABS: Triiodothyronine T3 Free 3.1 pg/mL (2.3-4.2)
== END 2023-02-02 10:44 | disposition home or self-care (01) ==
LOC: ANHLAB 10:44
PROVIDERS: PCP Family Medicine; Visit Provider Physician Assistant
DX: E03.9 Hypothyroidism, unspecified (principal); E07.9 Disorder of thyroid, unspecified
CPT/HCPCS: 36415; 84439; 84443; 84481

== ENCOUNTER 2023-03-20 07:14 | Outpatient (RCR) | payer MEDICARE, SELFPAY ==
[2022-12-20 07:52] LABS: Basophils Percent Auto 0.6 % (0.2-1.2); Eosinophils Absolute Auto 0.1 K/mm3 (0-0.3); Eosinophils Percent Auto 2.1 % (0-4.4); Hematocrit 41.8 % (37.0-47.0); Hemoglobin 13.7 g/dL (12.0-15.0); Immature Granulocyte Absolute 0.02 K/mm3 (0.00-0.031); Immature Granulocyte Percent A 0.4 % (0-0.5); Lymphocytes Absolute Auto 1.49 K/mm3 (0.9-3.2); Mean Corpuscular HGB Conc 32.8 g/dl (32-36); Mean Corpuscular Hemoglobin 30.2 pg (26-34); Mean Corpuscular Volume 92.1 fl (80-100); Mean Platelet Volume 9.8 fl (7.4-10.4); Monocytes Absolute Auto 0.3 K/mm3 (0.1-0.6); Monocytes Percent Auto 6.7 % (2.6-8.5); Neutrophils Absolute Auto 2.9 K/mm3 (1.3-6.7); Neutrophils Percent Auto 59.2 % (45.5-73.1); Platelet Count Result 228 k/mm3 (150-375); Red Blood Count 4.54 M/mm3 (4.2-5.4); Red Cell Distribution Width 12.8 % (11.5-14.5); White Blood Count 4.8 K/mm3 (4.5-10.0)
[2022-12-20 07:53] LABS: Alanine Aminotransferase 21 U/L (6-35); Albumin Level 4.4 g/dL (3.5-5.1); Alkaline Phosphatase 89 U/L (38-126); Anion Gap 5 mmol/L (8-16); Aspartate Amino Transferase 25 U/L (14-36); Bilirubin,Total 0.4 mg/dL (0.2-1.3); Blood Urea Nitrogen 13 mg/dL (7-17); Calcium 9.1 mg/dL (8.4-10.2); Carbon Dioxide 29 mmol/L (22-30); Chloride 104 mmol/L (98-107); Estimated Glomerular Filt Rate > 60; Glucose 108 mg/dL (65-110); Potassium 4.3 mmol/L (3.4-5.0); Sodium 138 mmol/L (137-145)
[2022-12-22 12:35] LABS: Tacrolimus Prograf 2.8 mcg/L
[2022-12-24 06:09] LABS: GGT 13 U/L (3-65)
[2023-03-20 09:36] LABS: Basophils Percent Auto 0.5 % (0.2-1.2); Eosinophils Absolute Auto 0.1 K/mm3 (0-0.3); Eosinophils Percent Auto 1.9 % (0-4.4); Hematocrit 41.6 % (37.0-47.0); Hemoglobin 13.3 g/dL (12.0-15.0); Immature Granulocyte Absolute 0.01 K/mm3 (0.00-0.031); Immature Granulocyte Percent A 0.2 % (0-0.5); Lymphocytes Absolute Auto 1.32 K/mm3 (0.9-3.2); Lymphocytes Percent Auto 31.3 % (18.3-44.2); Mean Corpuscular Hemoglobin 30.2 pg (26-34); Mean Corpuscular Volume 94.3 fl (80-100); Mean Platelet Volume 10.2 fl (7.4-10.4); Monocytes Absolute Auto 0.3 K/mm3 (0.1-0.6); Monocytes Percent Auto 6.4 % (2.6-8.5); Neutrophils Absolute Auto 2.5 K/mm3 (1.3-6.7); Neutrophils Percent Auto 59.7 % (45.5-73.1); Platelet Count Result 213 k/mm3 (150-375); Red Blood Count 4.41 M/mm3 (4.2-5.4); Red Cell Distribution Width 12.9 % (11.5-14.5); White Blood Count 4.2 K/mm3 (4.5-10.0)
[2023-03-20 10:01] LABS: Alanine Aminotransferase 23 U/L (6-35); Albumin Level 4.2 g/dL (3.5-5.1); Alkaline Phosphatase 90 U/L (38-126); Anion Gap 8 mmol/L (8-16); Aspartate Amino Transferase 28 U/L (14-36); Bilirubin,Total 0.5 mg/dL (0.2-1.3); Blood Urea Nitrogen 13 mg/dL (7-17); Calcium 8.8 mg/dL (8.4-10.2); Carbon Dioxide 27 mmol/L (22-30); Chloride 105 mmol/L (98-107); Estimated Glomerular Filt Rate > 60; Glucose 105 mg/dL (65-110); Potassium 4.2 mmol/L (3.4-5.0); Sodium 140 mmol/L (137-145)
[2023-03-23 21:17] LABS: Tacrolimus Prograf 2.4 mcg/L
[2023-03-24 16:13] LABS: GGT 12 U/L (3-65)
== END 2023-03-20 23:59 | disposition home or self-care (01) ==
LOC: ANHLAB 07:14
PROVIDERS: PCP Family Medicine; Visit Provider Internal Medicine Gastroenterology
DX: Z51.81 Encounter for therapeutic drug level monitoring (principal); Z94.4 Liver transplant status; Z79.899 Other long term (current) drug therapy
CPT/HCPCS: 36415; 80053; 80197; 82977; 85025

== ENCOUNTER 2023-04-04 07:06 | Outpatient (CLI) | payer MEDICARE, SELFPAY ==
[2023-04-04 08:16] LABS: Thyroid Stimulating Hormone 0.199 uIU/mL (0.465-4.680)
[2023-04-10 00:09] LABS: Vitamin D 1,25 (OH)2 Total 73 pg/mL (18-72); Vitamin D2 1,25 (OH)2 <8 pg/mL; Vitamin D3 1,25 (OH)2 73 pg/mL
== END 2023-04-04 07:07 | disposition home or self-care (01) ==
PROVIDERS: PCP Family Medicine; Visit Provider Physician Assistant
DX: E07.9 Disorder of thyroid, unspecified (principal); E55.9 Vitamin D deficiency, unspecified; R79.89 Other specified abnormal findings of blood chemistry
CPT/HCPCS: 36415; 82306; 82652; 84439; 84443

== ENCOUNTER 2023-06-03 12:10 | Outpatient (CLI) | payer MEDICARE, SELFPAY ==
[2023-06-03 14:11] LABS: Thyroid Stimulating Hormone 0.507 uIU/mL (0.465-4.680); Total Triiodothyronine (T3) 0.99 NG/ML (0.97-1.69)
== END 2023-06-03 12:11 | disposition home or self-care (01) ==
PROVIDERS: PCP Family Medicine; Visit Provider Family Medicine
DX: E03.9 Hypothyroidism, unspecified (principal)
CPT/HCPCS: 36415; 84443; 84480

== ENCOUNTER 2023-06-20 07:01 | Outpatient (CLI) | payer MEDICARE, SELFPAY ==
[2023-06-20 07:51] LABS: Basophils Percent Auto 0.7 % (0.2-1.2); Eosinophils Absolute Auto 0.1 K/mm3 (0-0.3); Eosinophils Percent Auto 2.7 % (0-4.4); Hematocrit 41.1 % (37.0-47.0); Hemoglobin 13.6 g/dL (12.0-15.0); Immature Granulocyte Absolute 0.01 K/mm3 (0.00-0.031); Immature Granulocyte Percent A 0.2 % (0-0.5); Lymphocytes Absolute Auto 1.68 K/mm3 (0.9-3.2); Lymphocytes Percent Auto 37.8 % (18.3-44.2); Mean Corpuscular HGB Conc 33.1 g/dl (32-36); Mean Corpuscular Hemoglobin 30.5 pg (26-34); Mean Corpuscular Volume 92.2 fl (80-100); Mean Platelet Volume 9.9 fl (7.4-10.4); Monocytes Absolute Auto 0.3 K/mm3 (0.1-0.6); Monocytes Percent Auto 7.4 % (2.6-8.5); Neutrophils Absolute Auto 2.3 K/mm3 (1.3-6.7); Neutrophils Percent Auto 51.2 % (45.5-73.1); Platelet Count Result 224 k/mm3 (150-375); Red Blood Count 4.46 M/mm3 (4.2-5.4); White Blood Count 4.4 K/mm3 (4.5-10.0)
[2023-06-20 07:55] LABS: Alanine Aminotransferase 27 U/L (6-35); Albumin Level 4.3 g/dL (3.5-5.1); Alkaline Phosphatase 86 U/L (38-126); Anion Gap 4 mmol/L (8-16); Aspartate Amino Transferase 30 U/L (14-36); Bilirubin,Total 0.5 mg/dL (0.2-1.3); Blood Urea Nitrogen 11 mg/dL (7-17); Calcium 9.4 mg/dL (8.4-10.2); Carbon Dioxide 27 mmol/L (22-30); Chloride 105 mmol/L (98-107); Estimated Glomerular Filt Rate > 60; Glucose 118 mg/dL (65-110); Potassium 3.8 mmol/L (3.4-5.0); Sodium 136 mmol/L (137-145)
[2023-06-23 17:59] LABS: Tacrolimus Prograf 3.4 mcg/L
[2023-06-24 14:30] LABS: GGT 15 U/L (3-65)
== END 2023-06-20 07:02 | disposition home or self-care (01) ==
LOC: ANHLAB 07:06
PROVIDERS: PCP Family Medicine; Visit Provider Internal Medicine Gastroenterology
DX: Z94.4 Liver transplant status (principal)
CPT/HCPCS: 36415; 80053; 80197; 82977; 85025

== ENCOUNTER 2023-08-01 09:10 | Outpatient (CLI) | payer MEDICARE, SELFPAY ==
[2023-08-01 10:00] LABS: Free T4 Free Thyroxine 1.31 ng/mL (0.78-2.19)
== END 2023-08-01 09:11 | disposition home or self-care (01) ==
LOC: ANHLAB 09:12
PROVIDERS: PCP Family Medicine; Visit Provider Family Medicine
DX: E03.9 Hypothyroidism, unspecified (principal)
CPT/HCPCS: 36415; 84439

== ENCOUNTER 2023-08-12 09:52 | Outpatient (CLI) | payer MEDICARE, SELFPAY ==
--- NOTE | ~2023-08-12 | MM_ITS ---
EXAMINATION: MM screening aleks BI w nando HISTORY: Screening mammogram TECHNIQUE: Craniocaudal and mediolateral oblique 3-D tomosynthesis images were obtained and synthetic 2-D images were generated. CAD analysis was submitted and interpreted. COMPARISON: 05/23/2022 diagnostic bilateral mammogram and limited left breast ultrasound 06/12/2021 bilateral diagnostic mammography and Limited bilateral breast ultrasound 05/16/2021 bilateral screening BREAST PARENCHYMAL COMPOSITION: There are scattered areas of fibroglandular density. FINDINGS: There is an approximately 5.5 x 10 mm mass in the anterior inner mid left breast. Diagnosti c left mammogram and left breast ultrasound examination are recommended. Interval decreased size of the previously reported cyst in the lateral mid left breast. No suspicious mass or architectural distortion, malignant calcification, skin thickening or retractio n or significant new or developing density is noted otherwise. IMPRESSION: 1. 5.5 x 10 mm anterior inner mid left breast mass 2. Diagnostic left mammogram and left breast ultrasound examination are recommended. BI-RADS Category 0: Incomplete: Needs additional imaging evaluation. Reviewed, dictated and finalized at location A. IMPRESSION: 1. 5.5 x 10 mm anterior inner mid left breast mass 2. Diagnostic left mammogram and left breast ultrasound examination are recomme nded. BI-RADS Category 0: Incomplete: Needs additional imaging evaluation.
== END 2023-08-12 09:53 | disposition home or self-care (01) ==
LOC: ANHIMG 09:54
PROVIDERS: PCP Family Medicine; Visit Provider Family Medicine
DX: Z12.31 Encounter for screening mammogram for malignant neoplasm of breast (principal); R92.8 Other abnormal and inconclusive findings on diagnostic imaging of breast
CPT/HCPCS: 77063; 77067

== ENCOUNTER 2023-08-19 11:11 | Outpatient (CLI) | payer MEDICARE, SELFPAY ==
--- NOTE | ~2023-08-19 | MMUS_ITS ---
EXAMINATION: MM diagnostic aleks LT w nando, US breast LT limited HISTORY: Left breast mass on screening mammogram TECHNIQUE: Additional 3-D tomosynthesis images of the left breast were performed and synthetic 2-D im ages were generated. CAD analysis was submitted and interpreted. High resolution limited left breast ultrasound was performed. COMPARISON: 08/12/2023, 05/23/2022, 05/23/2021, 05/16/2021 FINDINGS: MAMMOGRAPHIC FINDINGS: There is an 8 mm x 5 mm oval, circumscribed, low density mass in the middle third of the inner breast at the 9:00 location, 4.5 cm from the nipple. No suspicious calcification or architectural distortio n are identified. ULTRASOUND: There is a 7 mm cyst at the 11:00 location, 3 cm from the nipple corresponding to the mammographic fi nding in question. In addition 3 mm round cyst is also noted at the 11:00 location, 2 cm from the nip ple. IMPRESSION: 1. No mammographic or sonographic evidence of malignancy. 2. Recommend routine screening mammography in one year. BI-RADS Category 2: Benign finding(s). Reviewed, dictated and finalized at location A. IMPRESSION: 1. No mammographic or sonographic evidence of malignancy. 2. Recommend routine screening mammography in one year. BI-RADS Category 2: Benign finding(s).
== END 2023-08-19 11:12 | disposition home or self-care (01) ==
LOC: ANHIMG 11:12
PROVIDERS: PCP Family Medicine; Visit Provider Physician Assistant
DX: R92.8 Other abnormal and inconclusive findings on diagnostic imaging of breast (principal)
CPT/HCPCS: 76642; 77061; 77065; G0279

== ENCOUNTER 2023-09-19 08:05 | Outpatient (RCR) | payer MEDICARE, SELFPAY ==
[2023-09-19 08:41] LABS: Basophils Percent Auto 0.5 % (0.2-1.2); Eosinophils Absolute Auto 0.1 K/mm3 (0-0.3); Eosinophils Percent Auto 2.3 % (0-4.4); Hematocrit 41.9 % (37.0-47.0); Hemoglobin 13.4 g/dL (12.0-15.0); Immature Granulocyte Absolute 0.01 K/mm3 (0.00-0.031); Immature Granulocyte Percent A 0.2 % (0-0.5); Lymphocytes Absolute Auto 1.38 K/mm3 (0.9-3.2); Lymphocytes Percent Auto 31.8 % (18.3-44.2); Mean Corpuscular Hemoglobin 30.2 pg (26-34); Mean Corpuscular Volume 94.4 fl (80-100); Mean Platelet Volume 9.9 fl (7.4-10.4); Monocytes Absolute Auto 0.3 K/mm3 (0.1-0.6); Monocytes Percent Auto 7.1 % (2.6-8.5); Neutrophils Absolute Auto 2.5 K/mm3 (1.3-6.7); Neutrophils Percent Auto 58.1 % (45.5-73.1); Platelet Count Result 205 k/mm3 (150-375); Red Blood Count 4.44 M/mm3 (4.2-5.4); Red Cell Distribution Width 12.6 % (11.5-14.5); White Blood Count 4.3 K/mm3 (4.5-10.0)
[2023-09-19 08:50] LABS: Alanine Aminotransferase 18 U/L (6-35); Albumin Level 4.2 g/dL (3.5-5.1); Alkaline Phosphatase 81 U/L (38-126); Anion Gap 10 mmol/L (8-16); Aspartate Amino Transferase 23 U/L (14-36); Bilirubin,Total 0.5 mg/dL (0.2-1.3); Blood Urea Nitrogen 18 mg/dL (7-17); Calcium 9.2 mg/dL (8.4-10.2); Carbon Dioxide 24 mmol/L (22-30); Chloride 106 mmol/L (98-107); Estimated Glomerular Filt Rate > 60; Glucose 102 mg/dL (65-110); Potassium 3.9 mmol/L (3.4-5.0); Sodium 140 mmol/L (137-145)
[2023-09-22 15:12] LABS: Tacrolimus Prograf 3.3 mcg/L
[2023-09-23 07:06] LABS: GGT 11 U/L (3-65)
== END 2023-12-18 23:59 | disposition home or self-care (01) ==
LOC: ANHLAB 08:05
PROVIDERS: PCP Family Medicine; Visit Provider Internal Medicine Gastroenterology
DX: Z94.4 Liver transplant status (principal)
CPT/HCPCS: 36415; 80053; 80197; 82977; 85025

== ENCOUNTER 2023-12-16 00:30 | Day surgery (SDC) | payer MEDICARE, SELFPAY ==
[2023-11-24 08:44] VITALS: BMI 31.1
--- NOTE | 2023-12-14 11:01 | PC.NURSE ---
Patient called regarding upcoming procedure. Reviewed preop instructions, appointment times, and procedure prep.
[2023-12-16 06:20] VITALS: BP 140/92; PULSE 82; RESP 16; TEMP 36.3; O2SAT 100; BMI 30.3
--- NOTE | 2023-12-16 06:30 | WPDANESEPPF ---
Anes - Initial Pre Proc Eval Procedure: Operation Date: 12/16/23 07:30 Proposed Procedures p Screening Colonoscopy - Bo Oates MD Date/Time: 12/16/23 06:30 Surgeon: Bo Oates MD Pre Op Diagnosis: neoplasm screening Patient Data Age: 63 Gender: F Height: 1.65 m Weight: 85 kg Allergies Allergy/AdvReac Type Severity Reaction Status Date / Time erythromycin base Allergy Unknown Unknown Verified 11/24/23 08:40 Penicillins Allergy Unknown Unknown Verified 11/24/23 08:40 Home Medications Medication Instructions Recorded Confirmed Type mycophenolate mofetil 500 mg tablet 500 mg PO BID 11/28/19 11/24/23 History multivitamin 1 tablet PO DAILY 02/28/21 11/24/23 History omeprazole 20 mg capsule,delayed 20 mg PO DAILY 05/15/22 11/24/23 History release tacrolimus 0.5 mg capsule, 2.5 mg PO DAILY 05/15/22 11/24/23 History immediate-release calcium carb,cit 300 mg-D3 200 1 tablet PO DAILY 04/07/23 11/24/23 History unit-min no.34-genistein 13.5 mg tablet (Citracal Plus Bone Density Builder) cholecalciferol (vitamin D3) 25 25 mcg PO DAILY 04/07/23 11/24/23 History mcg (1,000 unit) capsule levothyroxine 125 mcg tablet See Rx Instructions .Route 10/27/23 11/24/23 Rx .COMPLEX #90 tabs Patient hx anesthesia problems: none Family hx anesthesia problems: none Results Review: All pre-operative results and documents have been reviewed as part of the pre-operative evaluation. [facility] Past Medical History Medical History Abscess of axilla, left Adverse effect of antineoplastic and immunosuppressive drugs, sequela Arthritis Autonomic neuropathy in diseases classified elsewhere Body mass index [BMI] 30.0-30.9, adult (09/17/17) Closed nondisplaced fracture of fifth metatarsal bone of left foot Dietary counseling and surveillance (08/27/17) Encounter for gynecological examination (general) (routine) without abnormal findings GERD (gastroesophageal reflux disease) Hepatitis, autoimmune History of abnormal cervical Pap smear History of cirrhosis Hypothyroidism Hypothyroidism (acquired) Menopause 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 Personal history of immunosupression therapy Surgical History Surgical History H/O tubal ligation History of umbilical hernia repair Hx of liver transplant Liver transplant recipient Family History Family History Other Diabetes mellitus Family history of malignant neoplasm of breast Family history of type 1 diabetes mellitus Social History Social History Social History: Single Smoking status: Never smoker Second hand tobacco smoke exposure: No Alcohol intake: never Substance use: never Substance use type: does not use Lack of Transportation: No Lack of Food: Never True Current Housing: I Have Housing Concerned About Future Housing: No Difficulty Paying Gas/Electric Bills: No Difficulty Paying for Meds: No Currently Unemployed: YES Education: Decline to Answer Difficulty w/ Childcare or Family Care: No Living arrangements: with family Occupation/Education: unemployed Additional occupation/education comments: Disability Gender identity (if verbalized by the patient): Female Sexual Orientation (if Verbalized by the Patient): Straight or Heterosexual Spiritual care concerns: No Anes - Eval Final PreProcedure Day of Procedure 12/16/23 06:30 Patient weight: obese Heart: regular rate and rhythm Lungs: clear to auscultation Airway: Mallampati scale class II Neurological: alert and oriented Last oral intake: >/= 8 hours ASA classification: III Emergent: no Anesthetic plan: proceed Anesthesia type and monitoring: general GIVS and jeff
[2023-12-16] MEDS: LACTATED RINGERS 1,000 ML 150 ML IV CONT (06:45)
--- NOTE | 2023-12-16 07:30 | PM.HPGS ---
History of Present Illness History of Present Illness Consent: Risks, benefits, and alternatives have been discussed and questions answered. Patient agrees to proceed with procedure. Chief complaint: neoplasm screening Narrative: Maryana Emery is a 63 year old female here for screening colonoscopy, last one 10 years ago Review of Systems Constitutional: Constitutional: Denies headache(s) and Denies weakness Eyes: Eyes: Denies blurry vision ENT: Reports Normal hearing present, Denies headache(s) and Denies neck pain Cardiovascular: Cardiovascular: Denies chest pain and Denies dyspnea Respiratory: Respiratory: Denies dyspnea Gastrointestinal: Gastrointestinal: Reports no additional gastrointestinal complaints Genitourinary: Genitourinary: Denies dysuria Musculoskeletal: Musculoskeletal: Denies neck pain Integumentary/Breasts: Skin/Breast: Denies dry skin Neurologic: Reports Normal hearing present, Denies headache(s) and Denies weakness Psychiatric: Psychiatric: Denies anxiety Endocrine: Endocrine: Denies change in body appearance Hematologic/Lymphatic: Hematologic/Lymphatic: Denies easy bleeding Allergic/Immunologic: Allergic/Immunologic: Denies urticaria PMFSH Past Medical History Medical History (Updated 12/16/23 @ 07:31 by Bo Oates MD) Abscess of axilla, left Adverse effect of antineoplastic and immunosuppressive drugs, sequela Arthritis Autonomic neuropathy in diseases classified elsewhere Body mass index [BMI] 30.0-30.9, adult (09/17/17) Closed nondisplaced fracture of fifth metatarsal bone of left foot Colon cancer screening Dietary counseling and surveillance (08/27/17) Encounter for gynecological examination (general) (routine) without abnormal findings GERD (gastroesophageal reflux disease) Hepatitis, autoimmune History of abnormal cervical Pap smear History of cirrhosis Hypothyroidism Hypothyroidism (acquired) Menopause 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 Personal history of immunosupression therapy Surgical History Surgical History H/O tubal ligation History of umbilical hernia repair Hx of liver transplant Liver transplant recipient Family History Family History Other Diabetes mellitus Family history of malignant neoplasm of breast Family history of type 1 diabetes mellitus Social History Social History Social History: Single Smoking status: Never smoker Second hand tobacco smoke exposure: No Alcohol intake: never Substance use: never Substance use type: does not use Lack of Transportation: No Lack of Food: Never True Current Housing: I Have Housing Concerned About Future Housing: No Difficulty Paying Gas/Electric Bills: No Difficulty Paying for Meds: No Currently Unemployed: YES Education: Decline to Answer Difficulty w/ Childcare or Family Care: No Living arrangements: with family Occupation/Education: unemployed Additional occupation/education comments: Disability Gender identity (if verbalized by the patient): Female Sexual Orientation (if Verbalized by the Patient): Straight or Heterosexual Spiritual care concerns: No Meds Home Medications and Allergies Home Medications Medication Instructions Recorded Confirmed Type mycophenolate mofetil 500 mg tablet 500 mg PO BID 11/28/19 12/16/23 History multivitamin 1 tablet PO DAILY 02/28/21 12/16/23 History omeprazole 20 mg capsule,delayed 20 mg PO DAILY 05/15/22 12/16/23 History release tacrolimus 0.5 mg capsule, 2.5 mg PO DAILY 05/15/22 12/16/23 History immediate-release calcium carb,cit 300 mg-D3 200 1 tablet PO DAILY 04/07/23 12/16/23 History unit-min no.34-genistein 13.5 mg tablet (Citracal Plus Bone Density Builder) cholecalciferol
[2023-12-16 07:52] VITALS: BP 92/65; PULSE 76; RESP 27; O2SAT 97
[2023-12-16 08:02] VITALS: BP 117/65; PULSE 72; RESP 21; O2SAT 98
[2023-12-16 08:12] VITALS: BP 144/82; PULSE 72; RESP 24; O2SAT 98
== END 2023-12-16 08:20 | disposition home or self-care (01) ==
PROVIDERS: PCP Family Medicine; Visit Provider Internal Medicine Gastroenterology
PROC: 0DJD8ZZ Inspection of Lower Intestinal Tract, Via Natural or Artificial Opening Endoscopic (ICD-10-PCS; CPT 45378; principal; 2023-12-16 07:30)
DX: Z12.11 Encounter for screening for malignant neoplasm of colon (principal); K21.9 Gastro-esophageal reflux disease without esophagitis; E03.9 Hypothyroidism, unspecified; Z94.4 Liver transplant status
CPT/HCPCS: G0121; J2704; J7120

== ENCOUNTER 2023-12-23 07:10 | Outpatient (RCR) | payer MEDICARE, SELFPAY ==
[2023-12-23 07:49] LABS: Basophils Percent Auto 0.7 % (0.2-1.2); Eosinophils Absolute Auto 0.1 K/mm3 (0-0.3); Eosinophils Percent Auto 2.2 % (0-4.4); Hemoglobin 13.4 g/dL (12.0-15.0); Immature Granulocyte Absolute 0.01 K/mm3 (0.00-0.031); Immature Granulocyte Percent A 0.2 % (0-0.5); Lymphocytes Absolute Auto 1.33 K/mm3 (0.9-3.2); Lymphocytes Percent Auto 32.6 % (18.3-44.2); Mean Corpuscular HGB Conc 31.9 g/dl (32-36); Mean Corpuscular Hemoglobin 30.1 pg (26-34); Mean Corpuscular Volume 94.4 fl (80-100); Monocytes Absolute Auto 0.3 K/mm3 (0.1-0.6); Monocytes Percent Auto 6.6 % (2.6-8.5); Neutrophils Absolute Auto 2.4 K/mm3 (1.3-6.7); Neutrophils Percent Auto 57.7 % (45.5-73.1); Platelet Count Result 214 k/mm3 (150-375); Red Blood Count 4.45 M/mm3 (4.2-5.4); Red Cell Distribution Width 12.9 % (11.5-14.5); White Blood Count 4.1 K/mm3 (4.5-10.0)
[2023-12-23 08:04] LABS: Alanine Aminotransferase 24 U/L (6-35); Alkaline Phosphatase 75 U/L (38-126); Anion Gap 5 mmol/L (8-16); Aspartate Amino Transferase 31 U/L (14-36); Bilirubin,Total 0.6 mg/dL (0.2-1.3); Blood Urea Nitrogen 14 mg/dL (7-17); Carbon Dioxide 25 mmol/L (22-30); Chloride 108 mmol/L (98-107); Estimated Glomerular Filt Rate > 60; Glucose 111 mg/dL (65-110); Potassium 4.1 mmol/L (3.4-5.0); Sodium 138 mmol/L (137-145)
[2023-12-26 12:50] LABS: GGT 10 U/L (3-65)
== END 2024-03-22 23:59 | disposition home or self-care (01) ==
LOC: ANHLAB 07:10
PROVIDERS: PCP Family Medicine; Visit Provider Internal Medicine Gastroenterology
DX: Z94.4 Liver transplant status (principal)
CPT/HCPCS: 36415; 80053; 80197; 82977; 85025

== ENCOUNTER 2024-03-22 07:17 | Outpatient (RCR) | payer MEDICARE, SELFPAY ==
[2024-03-22 07:49] LABS: Basophils Percent Auto 0.8 % (0.2-1.2); Eosinophils Absolute Auto 0.1 K/mm3 (0-0.3); Eosinophils Percent Auto 1.8 % (0-4.4); Hematocrit 40.6 % (37.0-47.0); Hemoglobin 13.4 g/dL (12.0-15.0); Immature Granulocyte Absolute 0.01 K/mm3 (0.00-0.031); Immature Granulocyte Percent A 0.3 % (0-0.5); Lymphocytes Percent Auto 35.3 % (18.3-44.2); Mean Corpuscular Hemoglobin 30.4 pg (26-34); Mean Corpuscular Volume 92.1 fl (80-100); Mean Platelet Volume 9.9 fl (7.4-10.4); Monocytes Absolute Auto 0.3 K/mm3 (0.1-0.6); Monocytes Percent Auto 8.3 % (2.6-8.5); Neutrophils Absolute Auto 2.1 K/mm3 (1.3-6.7); Neutrophils Percent Auto 53.5 % (45.5-73.1); Platelet Count Result 208 k/mm3 (150-375); Red Blood Count 4.41 M/mm3 (4.2-5.4); Red Cell Distribution Width 12.7 % (11.5-14.5)
[2024-03-22 08:00] LABS: Alanine Aminotransferase 17 U/L (6-35); Alkaline Phosphatase 73 U/L (38-126); Anion Gap 5 mmol/L (4-12); Aspartate Amino Transferase 27 U/L (14-36); Bilirubin,Total 0.5 mg/dL (0.2-1.3); Blood Urea Nitrogen 22 mg/dL (7-17); Calcium 9.1 mg/dL (8.4-10.2); Carbon Dioxide 27 mmol/L (22-30); Chloride 107 mmol/L (98-107); Estimated Glomerular Filt Rate 56; Glucose 113 mg/dL (65-110); Potassium 4.3 mmol/L (3.4-5.0); Sodium 139 mmol/L (137-145)
[2024-03-25 11:19] LABS: GGT 9
[2024-03-25 11:20] LABS: Tacrolimus Prograf 3.6
== END 2024-06-20 23:59 | disposition home or self-care (01) ==
LOC: ANHLAB 07:17
PROVIDERS: PCP Family Medicine; Visit Provider Internal Medicine Gastroenterology
DX: Z94.4 Liver transplant status (principal)
CPT/HCPCS: 36415; 80053; 80197; 82977; 85025

== ENCOUNTER 2024-06-21 07:18 | Outpatient (RCR) | payer MEDICARE, SELFPAY ==
[2024-06-21 08:01] LABS: Basophils Percent Auto 0.7 % (0.2-1.2); Eosinophils Absolute Auto 0.1 K/mm3 (0-0.3); Eosinophils Percent Auto 2.4 % (0-4.4); Hematocrit 40.3 % (37.0-47.0); Hemoglobin 13.3 g/dL (12.0-15.0); Lymphocytes Absolute Auto 1.32 K/mm3 (0.9-3.2); Lymphocytes Percent Auto 32.3 % (18.3-44.2); Mean Corpuscular Hemoglobin 30.7 pg (26-34); Mean Corpuscular Volume 93.1 fl (80-100); Monocytes Absolute Auto 0.3 K/mm3 (0.1-0.6); Monocytes Percent Auto 7.8 % (2.6-8.5); Neutrophils Absolute Auto 2.3 K/mm3 (1.3-6.7); Neutrophils Percent Auto 56.8 % (45.5-73.1); Platelet Count Result 208 k/mm3 (150-375); Red Blood Count 4.33 M/mm3 (4.2-5.4); Red Cell Distribution Width 12.7 % (11.5-14.5); White Blood Count 4.1 K/mm3 (4.5-10.0)
[2024-06-21 08:16] LABS: Alanine Aminotransferase 16 U/L (6-35); Albumin Level 3.9 g/dL (3.5-5.1); Alkaline Phosphatase 70 U/L (38-126); Anion Gap 9 mmol/L (4-12); Aspartate Amino Transferase 30 U/L (14-36); Bilirubin,Total 0.5 mg/dL (0.2-1.3); Blood Urea Nitrogen 9 mg/dL (7-17); Calcium 9.2 mg/dL (8.4-10.2); Carbon Dioxide 26 mmol/L (22-30); Chloride 103 mmol/L (98-107); Estimated Glomerular Filt Rate > 60; Glucose 117 mg/dL (65-110); Potassium 3.9 mmol/L (3.4-5.0); Sodium 138 mmol/L (137-145)
[2024-06-21 18:12] LABS: GGT 9 U/L (3-65)
[2024-06-24 16:37] LABS: Tacrolimus Prograf 2.7 mcg/L
== END 2024-09-19 23:59 | disposition home or self-care (01) ==
LOC: ANHLAB 07:18
PROVIDERS: PCP Family Medicine; Visit Provider Internal Medicine Gastroenterology
DX: Z51.81 Encounter for therapeutic drug level monitoring (principal); Z79.899 Other long term (current) drug therapy; Z94.4 Liver transplant status
CPT/HCPCS: 36415; 80053; 80197; 82977; 85025

== ENCOUNTER 2024-10-01 06:59 | Outpatient (CLI) | payer MEDICARE, SELFPAY ==
[2024-10-01 07:36] LABS: Basophils Percent Auto 0.4 % (0.2-1.2); Eosinophils Absolute Auto 0.1 K/mm3 (0-0.3); Eosinophils Percent Auto 1.5 % (0-4.4); Hematocrit 39.9 % (37.0-47.0); Hemoglobin 13.4 g/dL (12.0-15.0); Immature Granulocyte Absolute 0.01 K/mm3 (0.00-0.031); Immature Granulocyte Percent A 0.2 % (0-0.5); Lymphocytes Absolute Auto 1.38 K/mm3 (0.9-3.2); Lymphocytes Percent Auto 30.1 % (18.3-44.2); Mean Corpuscular HGB Conc 33.6 g/dl (32-36); Mean Corpuscular Hemoglobin 30.5 pg (26-34); Mean Corpuscular Volume 90.9 fl (80-100); Mean Platelet Volume 9.6 fl (7.4-10.4); Monocytes Absolute Auto 0.3 K/mm3 (0.1-0.6); Monocytes Percent Auto 7.4 % (2.6-8.5); Neutrophils Absolute Auto 2.8 K/mm3 (1.3-6.7); Neutrophils Percent Auto 60.4 % (45.5-73.1); Platelet Count Result 208 k/mm3 (150-375); Red Blood Count 4.39 M/mm3 (4.2-5.4); Red Cell Distribution Width 12.6 % (11.5-14.5); White Blood Count 4.6 K/mm3 (4.5-10.0)
[2024-10-01 07:46] LABS: Alanine Aminotransferase 17 U/L (6-35); Albumin Level 4.1 g/dL (3.5-5.1); Alkaline Phosphatase 78 U/L (38-126); Anion Gap 3 mmol/L (4-12); Aspartate Amino Transferase 24 U/L (14-36); Bilirubin,Total 0.6 mg/dL (0.2-1.3); Blood Urea Nitrogen 14 mg/dL (7-17); Calcium 9.8 mg/dL (8.4-10.2); Carbon Dioxide 29 mmol/L (22-30); Chloride 106 mmol/L (98-107); Estimated Glomerular Filt Rate 56; Glucose 112 mg/dL (65-110); Potassium 4.2 mmol/L (3.4-5.0); Sodium 138 mmol/L (137-145)
[2024-10-01 23:24] LABS: GGT 10 U/L (3-65)
[2024-10-03 15:49] LABS: Tacrolimus Prograf 3.2 mcg/L
--- OUTSIDE RECORDS SUMMARY | 2024-10-04 20:36 | XMS_ITS | Encounter Summary ---
Author Organization [facility] Address [address] [place] [address]. [place], [place] [id number] [place] [id number] Care Team Providers Care Leather Etcher Name Role Phone Soha Briceno MD Primary Care Provider [phone] Encounter Details Date Type Department Care Team (Latest Contact Info) Description 06/01/2018 Abstract [facility] , Abundio Landeros MD Social History Tobacco Use Types Packs/Day Years Used Date Smoking Tobacco: Never Assessed Comments Unknown Sex and Gender Information Value Date Recorded Sex Assigned at Not on file Legal Sex Female 4:45 PM CDT Gender Identity Not on file Sexual Orientation Not on file documented as of this encounter Plan of Treatment Not on file documented as of this encounter Visit Diagnoses Not on filedocumented in this encounter Care Teams Leather Etcher Relationship Specialty Start Date End Date Soha Briceno MD [id number] [facility] [address] [place] [address] PCP - General FAMILY PRACTICE 07/29/18 documented as of this encounter
--- OUTSIDE RECORDS SUMMARY | 2024-10-04 20:36 | XMS_ITS | Encounter Summary ---
Author Organization [facility] Address [address] [place] [address]. [place] [address] [place] [address] Care Team Providers Care Flaker Tender Name Role Phone Unavailable Primary Care Provider Unavailabl e Encounter Details Date Type Department Care Team (Latest Contact Info) Description 06/23/2018 Abstract [facility] Thad Skaggs MD [address] [place] [id number] Social History Tobacco Use Types Packs/Day Years Used Date Smoking Tobacco: Never Assessed Comments Unknown Sex and Gender Information Value Date Recorded Sex Assigned at Not on file Legal Sex Female 4:45 PM CDT Gender Identity Not on file Sexual Orientation Not on file documented as of this encounter Last Filed Vital Signs Vital Sign Reading Time Taken Comments Blood Pressure 118/76 06/23/2018 9:23 AM CDT Pulse 69 06/23/2018 9:23 AM CDT Temperature - - Respiratory Rate - - Oxygen Saturation - - Inhaled Oxygen Concentration - - Weight 87.8 kg (193 lb 8 oz) 06/23/2018 9:23 AM CDT Height 160 cm (5' 3 ) 06/23/2018 9:23 AM CDT Body Mass Index 34.28 06/23/2018 9:23 AM CDT documented in this encounter Progress Notes * Generic Conversion MD Maryan - 06/23/2018 6:48 PM CDT Follow[facility] Authorization Release of Information First Name: Maryana Palma initial: Last Name: Rupert Amador Elizabeth authorize [facility] to release any and all healthcare information about me to my [facility] personal health record for my own uses and purposes. I acknowledge thatch healthcare information may include the following: x-rays, clinical diagnosis, histories of present illnesses, immunizations, allergies, prescription drug information, laboratory results, diagnostic screening and testing, clinical procedures, medical research, clinical trials, billing, account,and insurance information. I acknowledge that such healthcare information may include information regarding mental health screenings and/or treatment, including psychotherapy notes; HIV/AIDS, infectious disease, sexually transmitted infection testing, screening, diagnosis, and/or treatment; genetic testing; history of domestic violence, child abuse, and/or family abuse; and, substance/alcohol use and treatment history. I acknowledge that with this authorization [facility] may disclose any information or records (within the scope of the authorization) that [facility] has received about me from other healthcare Practices or facilities. [facility] may, within its discretion, withhold from disclosure any of the above information as permitted or required by law. Access to treatment or services may not be denied to me if I decline to sign this Authorization or revoke my Authorization. However, without this Authorization, my Practice will not electronically release my healthcare information to my [facility] personal health record. I may revoke this Authorization at any time. Such revocation will promptly take effect except to the extent that [facility] already has acted based on this Authorization. I may revoke this Authorization by removing [facility] as a health care Practice with whichI want to be connected on my [facility] account or providing my request to [facility]. However, I acknowledge that data previously submitted by [facility] as authorized by me prior to my subsequent revocation of this Authorization will remain in my [facility] account. I understand that I may delete my [facility] account any time. This authorization shall end upon the earliest of: a) the termination of the connection between my healthcare Practice and my [facility] Account; or b) upon my written request submitted to [email or web address]. For Authorized Representatives of Patients younger than 18 years old: This Authorization shall upon the earliest of: (1) the date the minor reaches the age of 18; or (2) the date [facility] receives written revocation from the minor, as an emancipated minor with legal authority to managehis/her own healthcare. I understand that the information submitted to my [facility] account is subject to the privacy and security protections of applicable Federal and State laws. I further understand and acknowledge that the manner in which [facility] protects my personal information is detailed in the [facility] Privacy Policy and the [facility] Terms of Use. I understand that [facility] is not responsible for the security of data stored in the [facility] database, and that the owners of [facility] are responsible for ensuring the securityof the data stored in [facility]. I have the right to receive a copy of this Authorization and may do so by clicking [Print] above. Signed on 06/23/2018 Please complete the following information: Maryana Emery 1960 If signing on behalf of a Patient, please complete the following: Relationship to Patient: [Place x in the appropriate box below] [X] Patient [ ] Parent/Guardian/Other Legal Scale Attendant By clicking [I ACCEPT], I acknowledge and agree to the terms of this Authorization. * Thad Skaggs MD - 06/23/2018 9:00 AM CDT Reason For Visit New Patient Visit Referred By / Reason Patient was self-referred. Name: Reason: Peripheral neuropathy, possibly related to immunosuppresants Chief Complaint Peripheral neuropathy, possibly related to immunosuppressant medication History of Present Illness Ms. 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 Peripheral neuropathy: Patient reports onset of symptoms in 5418-1056 after her transplant, progressively getting worse, symptoms are more prominent in bilateral lower extremities, she has numbness in cold sensations alongwith loss of sensation in bilateral lower extremities, difficulty to wear flip-flops, heaviness, minimal balance issues related to that. Her symptoms are exacerbated by activity. She was previously seen by Dr. Jaime Davey at [facility] in [place], she had extensive evaluation for possible underlying etiologies. There was also report of significant alcohol use, bottle of wine every night. She also had progression of symptoms in upper extremities which included more of frequent spasms and cram ps. She did not have any recent falls related to neuropathy. She would occasionally stumble while walking, will have difficulty to walk in a straight line. She denied of any bowel or bladder incontinence. She reported some back pain, she suffered from sciatica but her current neuropathy is not related to sciatica. Based on the chart review, she also had minimal neuropathy symptoms prior to transplant and it progressed after she was put on prednisone and Prograf. She had nerve conduction study and EMG in April, which was suggestive of motor and sensory polyneuropathy affecting at least theleft leg, study in the arm was normal at that time. Towards the end of the visit, she also mentioned about ongoing disability claim and some information may be requested from neurology as well. 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 She also reported unusual sweating from her chin level to mid thoracic level, unclear etiology. Shefeels that some of her symptoms did get better after reducing the dose of Prograf. She was also offered gabapentin and Lyrica in the past but she did not want any medications. She was concerned aboutthe side effects and interactions, she preferred to discuss those medications with her transplant team before considering any of them. Review of Systems GENERAL: No fever, chills. SKIN: No rashes. HEENT: No cough, sore throat. CVS: No chest pain, palpitations. RS: No shortness of breath GI: No abdominal pain : No dysuria EXTREMITIES: No edema, cyanosis. MUSCULOSKELETAL: No muscle weakness. NEURO: As per HPI HEM: No unexplained bleeding or clotting ENDOCRINE: History of hypothyroidism PSYCH: No anxiety Active Problems 1. Neuropathy (355.9) (G62.9) Past Medical History 1. History of Alcohol abuse (305.00) (F10.10) 2. History of anemia (V12.3) (Z86.2) 3. History of blood transfusion (V15.89) (Z92.89) 4. History of cataract (V12.49) (Z86.69) 5. History of hepatic disease (V12.79) (Z87.19) 6. History of hypothyroidism (V12.29) (Z86.39) 7. History of kidney disease (V13.09) (Z87.448) Surgical History 1. History of paracentesis 2. History of Tubal Ligation (V25.2) Family History Mother 1. Family history of atrial fibrillation (V17.49) (Z82.49) 2. Family history of hypothyroidism (V18.19) (Z83.49) 3. Family history of liver cancer (V16.0) (Z80.0) 4. Family history of lung cancer (V16.1) (Z80.1) 5. Family history of osteoporosis (V17.81) (Z82.62) Father 6. Family history of malignant neoplasm of stomach (V16.0) (Z80.0) 7. Family history of type 2 diabetes mellitus (V18.0) (Z83.3) Family History 8. Family history of atrial fibrillation (V17.49) (Z82.49) 9. Family history of hypothyroidism (V18.19) (Z83.49) 10. Family history of liver cancer (V16.0) (Z80.0) 11. Family history of lung cancer (V16.1) (Z80.1) 12. Family history of malignant neoplasm of stomach (V16.0) (Z80.0) 13. Family history of osteoporosis (V17.81) (Z82.62) 14. Family history of type 2 diabetes mellitus (V18.0) (Z83.3) Social History ?? Lives with significant other ?? Never a smoker Current Meds 1. Clindamycin HCl - 300 MG Oral Capsule; Take one capsule one hour prior to dental work; Therapy: (Recorded:[id number]) to Recorded 2. Magnesium Oxide 400 MG Oral Capsule; TAKE 1 CAPSULE 3 times daily; Therapy: (Recorded:[id number]) to Recorded 3. Multiple Vitamins/Minerals TABS; TAKE 1 TABLET DAILY; Therapy: (Recorded:[id number]) to Recorded 4. Mycophenolate Mofetil 500 MG Oral Tablet; TAKE 1 TABLET Every twelve hours; Therapy: (Recorded:[id number]) to Recorded 5. PriLOSEC 20 MG CPDR; TAKE 1 CAPSULE Daily; Therapy: (Recorded:[id number]) to Recorded 6. Synthroid 125 MCG Oral Tablet; Take one tablet every morning Thursday-Thursday on empty stomach; Therapy: (Recorded:[id number]) to Recorded 7. Tacrolimus 1 MG Oral Capsule; Take 2 caps in the morning, 1 cap in the evening; Therapy: (Recorded:[id number]) to Recorded Allergies 1. amoxicillin 2. Penicillins Vitals Recorded: 23Jun2018 09:23AM Heart Rate 69 Systolic 118 Diastolic 76 Height 5 ft 3 in Weight 193 lb 8 oz BMI Calculated 34.28 BSA Calculated 1.91 Physical Exam CONSTITUTIONAL: In no apparent distress. Vital signs as above. HEENT: Neck supple RS: Nonlabored breathing CVS: Regular rate and rhythm MUSCULOSKELETAL: No cyanosis. Trace edema in bilateral lower extremities. Neurological Exam: MENTAL STATUS: Alert and oriented to person, place, time and reason for visit. Normal language, speech, memory, mood and behavior. No neglect appreciated. CRANIAL NERVES: visual juan intact to confrontation, pupils equally round and reactive to light, extraocular movements intact, Facial sensations intact, massater strength intact , face symmetric, tongue and uvula midline, normal hearing, no primary gaze or gaze evoked nystagmus, symmetric palate elevation, shoulder shrug normal. MOTOR: Pronator Drift: None bilaterally. Strength 5/5 in bilateral upper extremities, pain driven weakness in bilateral lower extremities, more than 4/5 bilaterally. Normal tone. No atrophy or fasciculations appreciated. No involuntary movements. REFLEXES: 2+ bilateral symmetric. Difficult to elicit ankle reflexes bilaterally. SENSORY: Intact to light touch. Reduced light touch, vibration and temperature sense in distal feet bilaterally as well as lateral leg up to lower one third of tibia. COORDINATION: Intact to finger to nose, no ataxia GAIT: Antalgic, difficulty to walk tandem, Romberg's negative. Assessment 1. Peripheral neuropathy (356.9) (G62.9) 2. History of alcoholism (V11.3) (F10.21) 3. Long-term use of immunosuppressant medication (V58.69) (Z79.899) #Peripheral neuropathy, could be related to alcohol and some component of Prograf related neuropathy: She had extensive workup and EMG in the past as mentioned in HPI. She did not have any EMG in the last 3 years, we can consider EMG and nerve conduction study for bilateral upper extremities in future if needed. She did not want to start gabapentin or Lyrica before discussing it with her transplantteam. She reported frequent stumbling while walking, I strongly suggested fall precautions. She had physical therapy in the past, she is not interested at this point. Plan -As we discussed, your neuropathy in bilateral lower extremities could be related to Prograf and have not improved much over last 4-5 years. -We can consider trial of Gabapentin or Lyrica if your transplant team agrees with that to help cramping and heaviness sensations. -Fall precautions. -Follow up in [address] Skaggs today in [facility]. Please do not hesitate to contact us with additional questions or concerns, you can reach us at [phone]. This note was created using dragon dictation, please excuse typos. Signatures Electronically signed by : Thad Skaggs M.D.; Jun 24 2018 12:30AM APPLICATIONS SYSTEMS ANALYST (Author) documented in this encounter Plan of Treatment Not on file documented as of this encounter Visit Diagnoses Not on filedocumented in this encounter
--- OUTSIDE RECORDS SUMMARY | 2024-10-04 20:36 | XMS_ITS | Encounter Summary ---
Author Organization [facility] Address [address] [place] [address]. [place], [place] [address] [place] [address] Care Team Providers Care Ice Grinder Name Role Phone Soha Briceno MD Primary Care Provider [phone]- [phone] Encounter Details Date Type Department Care Team (Latest Contact Info) Description 06/04/2018 Abstract [facility] , Abundio Landeros MD Social [...] on filedocumented in this encounter Care Teams Ice Grinder Relationship Specialty Start Date End Date Soha Briceno MD [address] [place] [address] PCP - General FAMILY PRACTICE 07/29/18 documented as of this encounter
--- OUTSIDE RECORDS SUMMARY | 2024-10-04 20:36 | XMS_ITS | Encounter Summary ---
Author Organization [facility] Address [address] [place] [address]. [place], [place] [address] [place] [address] Care Team Providers Care Switch Cleaner Name Role Phone Soha Briceno MD Primary Care Provider [phone]- [phone] Encounter Details Date Type Department Care Team (Latest Contact Info) Description 05/07/2015 Scan [facility] , Abundio Landeros MD Social [...] on filedocumented in this encounter Care Teams Switch Cleaner Relationship Specialty Start Date End Date Soha Briceno MD [address] [place] [address] PCP - General FAMILY PRACTICE 07/29/18 documented as of this encounter
--- OUTSIDE RECORDS SUMMARY | 2024-10-04 20:36 | XMS_ITS | Encounter Summary ---
Author Organization [facility] Address [address] [place] [address]. [place], [place] [id number] [place] [id number] Care Team Providers Care Chart Collector Name Role Phone Soha Briceno MD Primary Care Provider [phone]- [phone] Reason for Visit * Reason Comments Follow Up * Consultation (Routine) - Closed Specialty Diagnoses / Procedures Referred By Nicky oropeaz Referred To Contact NEUROLOGY Diagnoses neuropathy Procedures FOLLOW UP Soha Briceno MD [address] [facility] 162 [facility] 120 [place] [address] Phone: tel: fax: Thad Alfaro MD [address] [place] [address] Phone: tel: fax: Referral ID Status Reason Start Date Expiration Date Visits Re quested Visits Authorized [id number] Closed 08/24/2018 08/25/2019 10 10 Encounter Details Date Type Department Care Team (Late st Contact Info) Description 02/07/2019 10:00 AM CDT Office Visit [facility] - [address] [id number] Thad Alfaro MD [address] [place] [id number] Follow Up Social History Tobacco Use Types Packs/Day Years Used Date Smoking Tobacco: Never Smokeless Tobacco: Never Alcohol Use Standard Drinks/Week Comments No 0 (1 standard drink = 0.6 oz pure alcohol) History of alcohol use in the past Comments Unknown Sex and Gender Information Value Date Recorded Sex Assigned at Not on file Legal Sex Female 4:45 PM CDT Gender Identity Not on file Sexual Orientation Not on file documented as of this encounter Last Filed Vital Signs Vital Sign Reading Time Taken Comments Blood Pressure 116/78 02/07/2019 10:03 AM CDT Pulse 69 02/07/2019 10:03 AM CDT Temperature - - Respiratory Rate - - Oxygen Saturation - - Inhaled Oxygen Concentration - - Weight 85.7 kg (189 lb) 02/07/2019 10:03 AM CDT Height 167.6 cm (5' 6 ) 02/07/2019 10:03 AM CDT Body Mass Index 30.51 02/07/2019 10:03 AM CDT documented in this encounter Patient Instructions * Patient Instructions* Thad Alfaro MD - 02/07/2019 10:00 AM CDT -Continue Gabapentin 200 mg nightly for neuropathic pain. -Fall precautions. -Call us in case of worsening symptoms in future or if medication is not helping. I will request your Primary Care physician to adjust the Gabapentin to higher dose in future as needed. -Follow up as needed. You saw Dr. Alfaro today in [facility]. Please do not hesitate to contact us with additional questions or concerns, you can reach us at [phone]. Keeping track of your health record is easy and secure with [employer]. Please Go to [email or web address] to sign up. [employer] account allows you to request appointment, prescription refills, review your latest results as well as upcoming appointments. The access is 24 hours/day and 7 days/week. documented in this encounter Progress Notes * Norma Loera MA - 02/07/2019 10:00 AM CDT Review of Systems Constitutional: Negative for fever and weight loss. HENT: Negative for tinnitus. Eyes: Negative for double vision. Respiratory: Negative for shortness of breath. Cardiovascular: Negative for chest pain. Gastrointestinal: Negative for vomiting. Genitourinary: Negative for dysuria. Musculoskeletal: Negative for joint pain. Skin: Negative for rash. Endo/Heme/Allergies: Does not bruise/bleed easily. Psychiatric/Behavioral: Negative for suicidal ideas. Neurology: As per HPI. * Thad Alfaro MD - 02/07/2019 10:00 AM CDT Neurology Outpatient Follow Up Visit 02/07/2019 Patient:?Maryana Emery :?1960 Reason for Visit: Follow up for Peripheral Neuropathy Chief Complaint:??Peripheral Neuropathy, likely related to chemotherapy use. 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 Peripheral neuropathy: Her symptoms started in [id number] after transplant, progressively worsened, prominent bilateral lower extremities numbness and cold sensations, loss of sensation in bilateral lower extremities, difficult to wear flip-flops, heaviness feeling. She also endorsed minimal balance issues, exacerbation of symptoms with activity. She was seen by Dr. Jaime Davey at [facility] in [facility], she had extensive evaluation and some correlation for alcohol history (patient used to drink bottle of wine every night) was raised along with Prograf related neuropathy. She also had symptoms in bilateral upperextremities. Patient reported back pain and history of sciatica. She had EMG/NCV (Nerve and Muscle S tudy) in April, which was suggestive of motor and sensory neuropathy in left leg, normal study for arms. She also reported about ongoing disability claim. 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 She also reported unusual sweating from chin to mid thoracic level, unclear etiology. Her symptoms did not improve after reducing Prograf level. She was offered Gabapentin and Lyrica use in the past,she eventually started taking Gabapentin 100 mg nightly dose. Interval History: Patient is currently taking gabapentin 200 mg at nighttime. She is afraid of taking the medication in the morning. She continues to see her liver specialist in [place]. No side effects, no worsening of muscle cramping or neuropathic pain since last visit. She has minimal balance issues, recently had a fall at gas station, more likely mechanical in nature and uneven surface led to fall. I discussed with the patient that neuropathy symptoms are chronic in nature, she may need minimal medication adjustment in future which can be done by primary care physician. For any reason, if needed medication change or it is not helping, we can consider reevaluation in future otherwise follow-upas needed only. REVIEW OF SYSTEMS: Constitutional: Negative for fever and weight loss. HENT: Negative for tinnitus. Eyes: Negative for double vision. Respiratory: Negative for shortness of breath. Cardiovascular: Negative for chest pain. Gastrointestinal: Negative for vomiting. Genitourinary: Negative for dysuria. Musculoskeletal: Negative for joint pain. Skin: Negative for rash. Endo/Heme/Allergies: Does not bruise/bleed easily. Psychiatric/Behavioral: Negative for suicidal ideas. Neurologic: As per HPI. Remaining as per HPI. PAST MEDICAL HISTORY: Past Medical History: Diagnosis Date ??? Autoimmune hepatitis (CMS/HCC) ??? Cirrhosis (CMS/HCC) ??? Hypothyroidism ??? Immunosuppressed due to chemotherapy ??? Liver transplant aborted ??? Neuropathy due to chemotherapeutic drug (CMS/HCC) PAST SURGICAL HISTORY: Past Surgical History: Procedure Laterality Date ??? LIVER TRANSPLANTATION SOCIAL HISTORY: ?? Social History Socioeconomic History ??? Marital status: Unknown Spouse name: Not on file ??? Number of children: Not on file ??? Years of education: Not on file ??? Highest education level: Not on file Occupational History ??? Not on file Social Needs ??? Financial resource strain: Not on file ??? Food insecurity: Worry: Not on file Inability: Not on file ??? Transportation needs: Medical: Not on file Non-medical: Not on file Tobacco Use ??? Smoking status: Never Smoker ??? Smokeless tobacco: Never Used Substance and Sexual Activity ??? Alcohol use: No Comment: History of alcohol use in the past ??? Drug use: No ??? Sexual activity: Not on file Lifestyle ??? Physical activity: Days per week: Not on file Minutes per session: Not on file ??? Stress: Not on file Relationships ??? Social connections: Talks on phone: Not on file Gets together: Not on file Attends restorationism service: Not on file Active member of club or organization: Not on file Attends meetings of clubs or organizations: Not on file Relationship status: Not on file ??? Intimate partner violence: Fear of current or ex partner: Not on file Emotionally abused: Not on file Physically abused: Not on file Forced sexual activity: Not on file Other Topics Concern ??? Not on file Social History Narrative ??? Not on file MEDICATIONS: Current Outpatient Medications Medication Sig ??? AFLURIA QUADRIVALENT 0.5 ML injection ADM 0.5ML IM UTD ??? Calcium Carb-Cholecalciferol (CALCIUM CARBONATE-VITAMIN D3 OR) Take 1 tablet by mouth. ??? gabapentin 100 MG capsule Take 100 mg nightly. ??? hydrocodone-acetaminophen 5-325 MG tablet TK 1 T PO Q 4 TO 6 H PRN P ??? levothyroxine 125 MCG tablet TK 1 T PO QD ??? magnesium oxide 400 MG tablet Take 400 mg by mouth. ??? Multiple Vitamins tablet Take 1 tablet by mouth daily. ??? mycophenolate (CELLCEPT) 250 MG capsule Take 250 mg by mouth 2 (two) times daily. ??? mycophenolate mofetil 500 MG tablet ??? omeprazole (PRILOSEC) 20 MG capsule Take 1 capsule by mouth daily. ??? SHINGRIX injection Inject 0.5 mLs into the muscle. ??? tacrolimus 1 MG capsule ??? clindamycin 150 MG capsule TK 1 C PO QID TAT ??? clindamycin 300 MG capsule TK 2 CS PO ONE HOUR PRIOR TO DENTAL WORK ALLERGIES: Review of patient's allergies indicates: Amoxicillin and Penicillins Objective: Vital signs: Filed Vitals: 02/07/19 1003 BP: 116/78 Pulse: 69 Weight: 85.7 kg (189 lb) Height: 5' 6 (1.676 m) PHYSICAL EXAM: CONSTITUTIONAL: In no apparent distress. Vital signs as above. MUSCULOSKELETAL: No cyanosis. Trace edema in lower extremities. Neurological Exam: MENTAL STATUS: Alert and oriented to person, place, time and reason for visit. Normal language, speech, memory, mood and behavior. No neglect appreciated. CRANIAL NERVES: Cranial nerves II through XII are grossly intact. MOTOR: Moving all 4 extremities without any focal weakness. No atrophy or fasciculations appreciated. No involuntary movements. REFLEXES: 2+ bilateral symmetric. Reflexes absent at bilateral ankles. SENSORY: Intact to light touch. Reduced vibration sense in distal lower extremities, left worse than right. Normal joint position sense. COORDINATION: Intact to finger to nose, no ataxia GAIT: Slow and wide-based, no ataxia. Diagnostic Studies: No new imaging since last visit. Assessment and Plan: Encounter Diagnose(s) ICD-10-CM ICD-9-CM SNOMED CT(R) 1. Drug-induced polyneuropathy ([facility]) G62.0 357.6 POLYNEUROPATHY DUE TO DRUG E980.5 Patient Instructions -Continue Gabapentin 200 mg nightly for neuropathic pain. -Fall precautions. -Call us in case of worsening symptoms in future or if medication is not helping. I will request your Primary Care physician to adjust the Gabapentin to higher dose in future as needed. -Follow up as needed. You saw Dr. Alfaro today in [facility]. Please do not hesitate to contact us with additional questions or concerns, you can reach us at [phone]. Keeping track of your health record is easy and secure with [employer]. Please Go to [email or web address] to sign up. [employer] account allows you to request appointment, prescription refills, review your latest results as well as upcoming appointments. The access is 24 hours/day and 7 days/week. Plan discussed with patient who voiced understanding and agreed with the plan. Approximately 20 minutes were spent with the patient with greater than 30% of the time spent in counseling and coordination of care. Portions of this note were created using voice recognition software, please excuse any typos. THAD ALFARO MD 02/07/2019 10:28 AM [facility] documented in this encounter Plan of Treatment Not on file documented as of this encounter Visit Diagnoses Diagnosis Drug-induced polyneuropathy (CMS/HCC [facility])- Primary Polyneuropathy due to drugs documented in this encounter Care Teams Chart Collector Relationship Specialty Start Date End Date Soha Briceno MD [address] [facility] [address] [facility] 120 [place] [id number] PCP - General FAMILY PRACTICE 07/29/18 documented as of this encounter
--- OUTSIDE RECORDS SUMMARY | 2024-10-04 20:36 | XMS_ITS | Encounter Summary ---
Author Organization [facility] Address [address] [place] [address]. [place], [place] [address] [place] [address] Care Team Providers Care Poultry Husbandry Teacher Name Role Phone Soha Briceno MD Primary Care Provider +1- [phone] Encounter Details Date Type Department Care Team (Latest Contact Info) Description 04/23/2015 Scan [facility] , [place] [...] on filedocumented in this encounter Care Teams Poultry Husbandry Teacher Relationship Specialty Start Date End Date Soha Briceno MD [address] [facility] [address] [place] [address] PCP - General FAMILY PRACTICE 07/29/18 documented as of this encounter
--- OUTSIDE RECORDS SUMMARY | 2024-10-04 20:36 | XMS_ITS | Encounter Summary ---
Author Organization [facility] Address [address] [place] [address]. [place], [place] [address] [place] [address] Care Team Providers Care Archaeologist Name Role Phone Soha Briceno MD Primary Care Provider +1- [phone] Reason for Visit * Reason Comments Neuropathy * Consultation (Routine) - Closed Specialty Diagnoses / Procedures Referred By Nicky oropeza Referred To Contact NEUROLOGY Diagnoses neuropathy Procedures FOLLOW UP Soha Briceno MD [address] [facility] 162 [facility] [address] [place] [address] Phone: tel: fax: Thad Alfaro MD [address] [place] [address] Phone: tel: fax: Referral ID Status Reason Start Date Expiration Date Visits Re quested Visits Authorized [id number] Closed 08/24/2018 08/25/2019 10 10 Encounter Details Date Type Department Care Team (Late st Contact Info) Description 08/24/2018 11:00 AM MOBILE DEVELOPER Office Visit [facility] [address] [phone] Thad Alfaro MD [address] [place] [id number] Neuropathy Social History Tobacco Use Types Packs/Day Years [...] Sign Reading Time Taken Comments Blood Pressure 110/62 08/24/2018 11:09 AM MOBILE DEVELOPER Pulse 78 08/24/2018 11:09 AM MOBILE DEVELOPER Temperature - - Respiratory Rate - - Oxygen Saturation 98% 08/24/2018 11:09 AM MOBILE DEVELOPER Inhaled Oxygen Concentration - - Weight 86.2 kg (190 lb) 08/24/2018 11:09 AM MOBILE DEVELOPER Height 160 cm (5' 3 ) 08/24/2018 11:09 AM MOBILE DEVELOPER Body Mass Index 33.66 08/24/2018 11:09 AM MOBILE DEVELOPER documented in this encounter Patient Instructions * Patient Instructions* Thad Alfaro MD - 08/24/2018 11:00 AM MOBILE DEVELOPER -Start Gabapentin 300 mg capsule as below: Week 1: 300 mg nightly. Week 2 onwards: 300 mg twice daily if no side effects. We briefly discussed about gabapentin side effects including drowsiness, dizziness, walking difficulty, excessive sleepiness, mood changes or hallucinations; you should stop the medication in case ofside effects and reports us. -Continue to follow up in [place] for your post liver transplant follow up. Please inform us if any changes to your kidney function tests (Creatinine) in future. -Fall precautions. LE DEVELOPER documented in this encounter Progress Notes * Thad Alfaro MD - 08/24/2018 11:00 AM CST Neurology Outpatient Follow Up Visit 08/24/2018 Patient:?Maryana Emery :?[id number] Reason for Visit: Follow up for Peripheral Neuropathy Chief Complaint:??Peripheral Neuropathy, likely related to chemotherapy use. 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 Peripheral neuropathy: Her symptoms started in 1750-4805 after transplant, progressively worsened, prominent bilateral lower extremities numbness and cold sensations, loss of sensation in bilateral lower extremities, difficult to wear flip-flops, heaviness feeling. She also endorsed minimal balance issues, exacerbation of symptoms with activity. She was seen by Dr. Jaime Davey at [facility] in [facility], she had extensive evaluation and some correlation for alcohol history (patient used to drink bottle of wine every night) was raised along with Prograf related neuropathy. She also had symptoms in bilateral upperextremities, no problems with bowel or bladder function. Patient reported back pain and hstory of sciatica. She had EMG/NCV (Nerve and Muscle Study) in April, which was suggestive of motor and sensory neuropathy in left leg, normal study for arms. She also reported about ongoing disability claim. 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 She also reported unusual sweating from chin to mid thoracic level, unclear etiology. Her symptoms did not improve after reducing Prograf level. She was offered Gabapentin and Lyrica use in the past but she did not want to use it due to concern of affecting her transplant. Interval History: She had follow up with [facility], had USG liver which showed mild echogenicity, splenomegaly. Shewill have upper GI endoscopy to rule out any braces as well as 3 monthly labs to check her liver and kidney functions. She is continued on Prograf and mycophenolate mofetil. Patient did extensive research about the cost of the medication as well options and preferred to try gabapentin for neuropathy pain. She reported ongoing numbness, intermittent discomfort in bilateral lower extremities, slightly worse on the left side. She also reported difficulty while driving back from [place] recently where she did not have good feeling in her legs, she could not feel the brake pedal, she had extensive discomfort. We briefly discussed possible side effects with the medication, she will contact us in case of any issuesor any change in kidney functions in near future. REVIEW OF SYSTEMS: Constitutional: Negative for fever [...] Remaining as per HPI. PAST MEDICAL HISTORY: History reviewed. No pertinent past medical history. PAST SURGICAL HISTORY: Past Surgical History: Procedure Laterality Date ??? LIVER TRANSPLANTATION SOCIAL HISTORY: ?? Social History Socioeconomic History ??? Marital status: Unknown Spouse name: Not on file ??? Number of children: Not on file ??? Years of education: Not on file ??? Highest education level: Not on file Social Needs ??? Financial resource strain: Not on file ??? Food insecurity - worry: Not on file ??? Food insecurity - inability: Not on file ??? Transportation needs - medical: Not on file ??? Transportation needs - non-medical: Not on file Occupational History ??? Not on file Tobacco Use ??? Smoking status: Never Smoker ??? Smokeless tobacco: Never Used Substance and Sexual Activity ??? Alcohol use: Not on file ??? Drug use: Not on file ??? Sexual activity: Not on file Other Topics Concern ??? Not on file Social History Narrative ??? Not on file MEDICATIONS: Current Outpatient Medications Medication Sig ??? AFLURIA QUADRIVALENT 0.5 ML injection ADM 0.5ML IM UTD ??? Calcium Carb-Cholecalciferol (CALCIUM CARBONATE-VITAMIN D3 OR) Take by mouth daily. ??? Calcium Carb-Cholecalciferol (CALCIUM CARBONATE-VITAMIN D3 OR) Take 1 tablet by mouth. ??? clindamycin 150 MG capsule TK 1 C PO QID TAT ??? gabapentin 300 MG capsule Week 1: 300 mg at night, Week 2: 300 mg two times daily if no side effects. ??? hydrocodone-acetaminophen 5-325 MG tablet TK 1 T PO Q 4 TO 6 H PRN P ??? levothyroxine 125 MCG tablet TK 1 T PO QD ??? magnesium oxide 400 MG tablet Take 400 mg by mouth. ??? Multiple Vitamins tablet Take 1 tablet by mouth daily. ??? mycophenolate (CELLCEPT) 250 MG capsule Take 250 mg by mouth 2 (two) times daily. ??? omeprazole (PRILOSEC) 20 MG capsule Take 1 capsule by mouth daily. ??? tacrolimus 1 MG capsule ALLERGIES: Review of patient's allergies indicates: Penicillins Objective: Vital signs: Filed Vitals: 08/24/18 1109 BP: 110/62 Pulse: 78 SpO2: 98% Weight: 86.2 kg (190 lb) Height: 5' 3 (1.6 m) PHYSICAL EXAM: CONSTITUTIONAL: In no apparent distress. Vital signs as above. MUSCULOSKELETAL: No cyanosis. Trace edema in lower extremities. Neurological Exam: MENTAL STATUS: Alert and oriented to person, place, time and reason for visit. Normal language, speech, memory, mood and behavior. No neglect appreciated. CRANIAL NERVES: visual juan intact to confrontation, pupils equally round and reactive to light, extraocular movements intact, massater strength intact , face symmetric, tongue and uvula midline, normal hearing, no primary gaze or gaze evoked nystagmus, symmetric palate elevation, shoulder shrug normal. MOTOR: Pronator Drift: None bilaterally. Strength 5/5 in bilateral upper extremities and bilateral lower extremities. Normal tone. No atrophy or fasciculations appreciated. No involuntary movements. REFLEXES: 2+ bilateral symmetric. Reduced reflexes at bilateral ankles. SENSORY: Intact to light touch. Reduced vibration sense in distal lower extremities, left worse than right. Normal joint position sense. COORDINATION: Intact to finger to nose, no ataxia GAIT: Slow and wide-based, no ataxia. Diagnostic Studies: No new studies since last visit. If applicable, I have personally reviewed the above laboratory results and/or imaging. Assessment and Plan: Encounter Diagnose(s) ICD-10-CM ICD-9-CM SNOMED CT(R) 1. Idiopathic peripheral neuropathy G60.9 356.9 IDIOPATHIC PERIPHERAL NEUROPATHY gabapentin 300 MG capsule 2. History of liver transplant (HCC) Z94.4 V42.7 H/O: LIVER RECIPIENT 3. History of chemotherapy Z92.21 V87.41 HISTORY OF ANTINEOPLASTIC CHEMOTHERAPY Patient agreed to try gabapentin for neuropathy pain control, I explained patient that it will not help with numbness symptoms. She will contact us in case of any change in kidney functions in futureor any side effects. Patient Instructions -Start Gabapentin 300 mg capsule as below: Week 1: 300 mg nightly. Week 2 onwards: 300 mg twice daily if no side effects. We briefly discussed about gabapentin side effects including drowsiness, dizziness, walking difficulty, excessive sleepiness, mood changes or hallucinations; you should stop the medication in case ofside effects and reports us. -Continue to follow up in [place] for your post liver transplant follow up. Please inform us if any changes to your kidney function tests (Creatinine) in future. -Fall precautions. Plan discussed with patient who voiced understanding and agreed with the plan. Approximately 20 minutes were spent with the patient with greater than 50% of the time spent in counseling and coordination of care. Portions of this note were created using voice recognition software, please excuse any typos. THAD ALFARO MD 08/24/2018 9:46 AM [facility] Neurology LE DEVELOPER * Norma Loera MA - 08/24/2018 11:00 AM CST Review of Systems Constitutional: Negative for fever and weight loss. HENT: Negative for tinnitus. Eyes: Negative for double vision. Respiratory: Negative for shortness of breath. Cardiovascular: Negative for chest pain. Gastrointestinal: Negative for vomiting. Genitourinary: Negative for dysuria. Musculoskeletal: Negative for joint pain. Skin: Negative for rash. Endo/Heme/Allergies: Does not bruise/bleed easily. Psychiatric/Behavioral: Negative for suicidal ideas. Neurology: As per HPI. LE DEVELOPER documented in this encounter Plan of Treatment Not on file documented as of this encounter Visit Diagnoses Diagnosis Idiopathic peripheral neuropathy- Primary Unspecified hereditary and idiopathic peripheral neuropathy History of liver transplant ([facility]/HCC [facility]/HCC) Liver replaced by transplant History of chemotherapy Personal history of antineoplastic chemotherapy documented in this encounter Care Teams Archaeologist Relationship Specialty Start Date End Date Soha Briceno MD [address] [facility] [address] [facility] [address] [facility] [address] [place] [address] PCP - General FAMILY PRACTICE 07/29/18 documented as of this encounter
--- OUTSIDE RECORDS SUMMARY | 2024-10-04 20:36 | XMS_ITS | Encounter Summary ---
Author Organization [facility] Address [address] [place] [address]. [place] [address] [place] [address] Care Team Providers Care Radiology Director Name Role Phone Soha Briceno MD Primary Care Provider +1- [phone] Encounter Details Date Type Department Care Team (Late st Contact Info) Description 12/02/2018 Orders Only [facility] [place] [address], [place] [address] Cherie Sanchez RN Social History Tobacco Use Types Packs/Day Years [...] on file documented as of this encounter Progress Notes * Cherie Sanchez - 12/02/2018 9:58 AM CST Script not received by pharmacy. 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
--- OUTSIDE RECORDS SUMMARY | 2024-10-04 20:36 | XMS_ITS | Encounter Summary ---
Author Organization [facility] Address [address] [place] [address]. [place], [place] [address] [place] [address] Care Team Providers Care Head Of Research & Insights Name Role Phone Soha Briceno MD Primary Care Provider +1- [phone] Encounter Details Date Type Department Care Team (Latest Contact Info) Description 09/19/2015 Scan [facility] , Abundio Landeros [...] on filedocumented in this encounter Care Teams Head Of Research & Insights Relationship Specialty Start Date End Date Soha Briceno MD [address] [facility] [address] [place] [address] PCP - General FAMILY PRACTICE 07/29/18 documented as of this encounter
--- OUTSIDE RECORDS SUMMARY | 2024-10-04 20:36 | XMS_ITS | Encounter Summary ---
Author Organization [facility] Address [address] [place] [address]. [place] [address] [place] [address] Care Team Providers Care Director Of Neighborhood Service Center Name Role Phone Soha Briceno MD Primary Care Provider +1- [phone] Reason for Visit * Reason Onset Date Comments Record Request 05/24/2019 Encounter Details Date Type Department Care Team (Late st Contact Info) Description 05/24/2019 Telephone [facility] Neuro[facility] [address] [place] [address] Thad Skaggs MD [address] [place] [address] Record Request Social History Tobacco Use Types Packs/Day Years [...] as of this encounter Progress Notes * Berenice Ovalles MA - 05/30/2019 3:34 PM CDT Left VM. * Cherie Sanchez - 05/30/2019 10:14 AM CDT Please let patient know I have printed off her clinic notes and mailed them to her. * Cherie Sanchez - 05/24/2019 8:21 AM CDT Pt is asking how she can obtain her records from Dr. Skaggs, she is self referring to [facility]. documented in this encounter Plan of Treatment Not on file documented as of this encounter Visit Diagnoses Not on filedocumented in this encounter Care Teams Director Of Neighborhood Service Center Relationship Specialty Start Date End Date Soha Briceno MD 68[address] [facility] 162 [facility] 120 [place] [address] PCP - General FAMILY PRACTICE 07/29/18 documented as of this encounter
--- OUTSIDE RECORDS SUMMARY | 2024-10-04 20:36 | XMS_ITS | Encounter Summary ---
Author Organization [facility] Address [address] [place] [address]. [place], [place] [address] [place] [address] Care Team Providers Care Food Concession Manager Name Role Phone Soha Briceno MD Primary Care Provider +1- [phone] Reason for Visit * Reason Onset Date Comments Update 04/27/2019 Encounter Details Date Type Department Care Team (Late st Contact Info) Description 04/27/2019 [place] Documentation [facility] Neuroscience [place] [address] [address] Thad Skaggs MD [address] [place] [id number] Update Social History Tobacco Use Types Packs/Day Years [...] as of this encounter Progress Notes * Thad Skaggs MD - 04/27/2019 11:18 AM CDT Patient sent us a letter with her recent blood test, her CBC showed WBC count of 3.6 otherwise unremarkable. Her metabolic panel showed sodium of 139, BUN 16, creatinine 1.10, GFR 51, normal liver function panel, albumin 4.2. Her tacrolimus level was 4.1, AFP tumor marker 2.1. Patient also mentioned about her possible omeprazole use causing kidney stress, she also questionedif her warm feet are worth of her kidneys with question. She has a red a lot of information online and found some connection which is described as warm fuzzies, commonly seen in kidney transplant patients where the complaint of warm feet. She did not have kidney transplant and she wants to try as much as possible to avoid any issues with her previous liver transplant. She wanted to keep us postedand check if there is any new information available about possible neuropathy and transplant patients. She will continue to follow- up with her primary care physician and call us in case of worsening symptoms or new changes. documented in this encounter Plan of Treatment Not on file documented as of this encounter Visit Diagnoses Not on filedocumented in this encounter Care Teams Food Concession Manager Relationship Specialty Start Date End Date Soha Briceno MD [address] [facility] [address] [email or web address] 120 [place] [address] PCP - General FAMILY PRACTICE 07/29/18 documented as of this encounter
--- OUTSIDE RECORDS SUMMARY | 2024-10-04 20:36 | XMS_ITS | Encounter Summary ---
Author Organization [facility] Address [address] [place] [address]. [place], [place] [address] [place] [address] Care Team Providers Care Mobile Equipment Operator Name Role Phone Soha Briceno MD Primary Care Provider +1- [phone] Encounter Details Date Type Department Care Team (Latest Contact Info) Description 05/03/[address] [facility] , Abundio Landeros MD Social [...] on filedocumented in this encounter Care Teams Mobile Equipment Operator Relationship Specialty Start Date End Date Soha Briceno MD [address] [facility] [address] [place] [address] PCP - General FAMILY PRACTICE 07/29/18 documented as of this encounter
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
--- OUTSIDE RECORDS SUMMARY | 2024-10-04 20:36 | XMS_ITS | Encounter Summary ---
Author Organization [facility] Address [address] [place] [address]. [place], [place] [address] [place] [address] Care Team Providers Care Field Nurse Case Manager Name Role Phone Soha Briceno MD Primary Care Provider +1- [phone] Encounter Details Date Type Department Care Team (Latest Contact Info) Description 06/11/2018 Abstract [facility] , Abundio Landeros MD Social [...] on filedocumented in this encounter Care Teams Field Nurse Case Manager Relationship Specialty Start Date End Date Soha Briceno MD [address] [facility] [address] [place] [address] PCP - General FAMILY PRACTICE 07/29/18 documented as of this encounter
--- OUTSIDE RECORDS SUMMARY | 2024-10-04 20:36 | XMS_ITS | Encounter Summary ---
Author Organization [facility] Address [address] [place] [address]. [place], [place] [address] [place] [address] Care Team Providers Care Conservation Technician Name Role Phone Soha Briceno MD Primary Care Provider +1- [phone] Reason for Visit * Reason Comments Outside Record (SCAN) Patient Informatio n Encounter Details Date Type Department Care Team (Late st Contact Info) Description 11/29/2018 Scan HEALTH INFO SRVCS Scanned, Documents Outside Record (SCAN) (Patient Information) Social History Tobacco Use Types Packs/Day Years [...] on filedocumented in this encounter Care Teams Conservation Technician Relationship Specialty Start Date End Date Soha Briceno MD [address] [facility] [address] [place] [address] PCP - General FAMILY PRACTICE 07/29/18 documented as of this encounter
--- OUTSIDE RECORDS SUMMARY | 2024-10-04 20:36 | XMS_ITS | Clinical Summary ---
Author Organization [facility] Address [address] [place] [address]. [place] [address] [place] [address] Care Team Providers Care Clerical Receptionist Name Role Phone Soha Briceno MD Primary Care Provider +1- [phone] Allergies Active Allergy Reactions Criticality Noted Date Comments Amoxicillin Rash Low 06/14/2012 Penicillins Itching,Rash,Unknown Low 06/14/2012 Medications magnesium oxide 400 MG tablet Take 400 mg by mouth. Active Calcium Carb-Cholecalcifero l (CALCIUM CARBONATE-VITAMIN D3 OR) Take 1 tablet by mouth. Active Multiple Vitamins tablet Take 1 tablet by mouth daily. Active clindamycin 150 MG capsule TK 1 C PO QID TAT 0 8 Active hydrocodone-acetami nophen 5-325 MG tablet TK 1 T PO Q 4 TO 6 H PRN P 0 8 Active AFLURIA QUADRIVALENT 0.5 ML injection ADM 0.5ML IM UTD 0 8 Active levothyroxine 125 MCG tablet TK 1 T PO QD 4 8 Active mycophenolate (CELLCEPT) 250 MG capsule Take 250 mg by mouth 2 (two) times daily. Active omeprazole (PRILOSEC) 20 MG capsule Take 1 capsule by mouth daily. 7 Active tacrolimus 1 MG capsule 0 8 Active clindamycin 300 MG capsule TK 2 CS PO ONE HOUR PRIOR TO DENTAL WORK 2 9 Active mycophenolate mofetil 500 MG tablet 3 9 Active SHINGRIX injection Inject 0.5 mLs into the muscle. 0 9 Active gabapentin 100 MG capsuleIndications: Drug-induced polyneuropathy ([facility]) 200 mg nightly. 60 capsule 11 9 Active Active Problems Problem Noted Date Diagnosed Date History of alcoholism ([facility]) 06/24/20 18 Drug-induced polyneuropathy ([facility]) Immunosuppression ([facility]) 07/19/2015 Peripheral nerve disease 05/03/2015 Autoimmune hepatitis ([facility]) 5 History of liver transplant ([facility]) Overview (08/24/2018): Last Assessment & Plan: OLT 02/22/14 2^ to ETOH ERCP done 03/03 stent placed Redmitted with Increased LFTs Liver biopsy: no rejection Bilirubin & Alk Phos still elevated most likely cholestasis Dc home today Cirrhosis of liver ([facility]) 02/22/2014 Hepatic encephalopathy ([facility]) 014 Overview (11/29/2018): Last Assessment & Plan: - Due to ESRD ( alcoholic cirrhosis ). Multifactorial. - Patient supposed to be on lactulose and rifaximin as OP. But patient is not taking Lactulose regularly because of increased BM. Not taking rifaximin because of insurance issues. - Patient is also taking Morphine as OP, for pain control. - No evidence of SBP on OSH paracentesis analysis. - Blood cultures. Urinalysis, and urine culture negative for infection - Please, discharge on Lactulose and rifaximin, up to 3 BM / day. - Avoid diarrhea Alcoholic cirrhosis ([facility]) 03/15/2013 Hypothyroidism 06/14/2012 Overview (08/24/2018): Last Assessment & Plan: Hx of hypothyroidism Continue Home dose of Synthroid 137 mcg qd Dc today Immunizations Name Administration Dates Next Due Flu Vaccine, 3 Yrs 08/24/2013 Influenza (Generic) 10/09/2015 Influenza Adult (Generic) 07/19/2018,07/18/2018, 10/09/2015 Pneumococcal (Pneumovax 23) 05/27/2013 Family History Medical History Relation Comments Neurological Disease Mother Relation Status Comments Mother Social History Tobacco Use Types Packs/Day Years [...] on file Sexual Orientation Not on file Last Filed Vital Signs Vital Sign Reading Time Taken Comments Blood Pressure 116/78 02/07/2019 10:03 AM CDT Pulse 69 02/07/2019 10:03 AM CDT Temperature - - Respiratory Rate - - Oxygen Saturation 100% 11/29/2018 10:54 AM JACK FRAME TENDER Inhaled Oxygen Concentration - - Weight 85.7 kg (189 lb) 02/07/2019 10:03 AM CDT Height 167.6 cm (5' 6 ) 02/07/2019 10:03 AM CDT Body Mass Index 30.51 02/07/2019 10:03 AM CDT Plan of Treatment Health Maintenance Due Date Last Done Comments Cervical Cancer Screening Pap Smear (Age 30 to 64) Every 3 Years 1960 Colorectal Cancer Screening Colonoscopy (10 Years) 1960 Annual Physical 1965 COVID-19 Vaccine (#1) 1967 Hepatitis C 1980 DTaP, Tdap and Td Vaccines (1 - Tdap) 1981 Zoster Vaccines (1 of 2) 1981 Cervical Cancer Screening Pap with HPV Testing (Age 30 to 64) Every 5 Years 1992 Cervical Cancer Screening with HPV 1992 Mammogram Screening 2002 Pneumococcal Vaccine: Pediatrics (0 to 5 Years) and At-Risk Patients (6 to 64 Years) (2 of 2 - PCV) 05/27/2014 05/27/2013 RSV Immunization or 60+ Years (1 - 1-dose 60+ series) 2022 Influenza Adult (#1) 2024 07/19/2018, 07/18/2018, 10/09/2015, Additional history exists Meningococcal Vaccine Aged Out No abiodun americo eligible based on patient's age to complete this topic RSV Immunizations Under 20 Months Aged Out No longer eligible based on patient's age to complete this topic Insurance MEDICARE [facility] Care Teams Clerical Receptionist Relationship Specialty Start Date End Date Soha Briceno MD [address] [facility] [address] [place] [address] PCP - General FAMILY PRACTICE 07/29/18
--- OUTSIDE RECORDS SUMMARY | 2024-10-04 20:36 | XMS_ITS | Encounter Summary ---
Author Organization [facility] Address [address] [place] [address]. [place], [place] [address] [place] [address] Care Team Providers Care Test Analyst Name Role Phone Soha Briceno MD Primary Care Provider +1- [phone] Encounter Details Date Type Department Care Team (Latest Contact Info) Description 08/24/2018 Abstract [facility] , Abundio Landeros [...] on filedocumented in this encounter Care Teams Test Analyst Relationship Specialty Start Date End Date Soha Briceno MD [address] [facility] [address] [place] [address] PCP - General FAMILY PRACTICE 07/29/18 documented as of this encounter
--- OUTSIDE RECORDS SUMMARY | 2024-10-04 20:36 | XMS_ITS | Encounter Summary ---
Author Organization [facility] Address [address] [place] [address]. [place], [place] [address] [place] [address] Care Team Providers Care Email Marketing Executive Name Role Phone Soha Briceno MD Primary Care Provider +1- [phone] Encounter Details Date Type Department Care Team (Latest Contact Info) Description 02/07/2019 Scan HEALTH INFO SRVCS Scanned, Documents Social History Tobacco Use Types Packs/Day Years [...] on filedocumented in this encounter Care Teams Email Marketing Executive Relationship Specialty Start Date End Date Soha Briceno MD [address] [facility] [address] [place] [address] PCP - General FAMILY PRACTICE 07/29/18 documented as of this encounter
--- OUTSIDE RECORDS SUMMARY | 2024-10-04 20:36 | XMS_ITS | Encounter Summary ---
Author Organization [facility] Address [address] [place] [address]. [place], [place] [address] [place] [address] Care Team Providers Care Community Health Director Name Role Phone Soha Briceno MD Primary Care Provider +1- [phone] Encounter Details Date Type Department Care Team (Latest Contact Info) Description 09/20/2015 Abstract [facility] , Abundio Landeros MD [...] on filedocumented in this encounter Care Teams Community Health Director Relationship Specialty Start Date End Date Soha Briceno MD [address] [facility] [address] [place] [address] PCP - General FAMILY PRACTICE 07/29/18 documented as of this encounter
== END 2024-10-01 07:00 | disposition home or self-care (01) ==
PROVIDERS: PCP Family Medicine; Visit Provider Internal Medicine Gastroenterology
DX: Z79.899 Other long term (current) drug therapy (principal); Z94.4 Liver transplant status
CPT/HCPCS: 36415; 80053; 80197; 82977; 85025

== ENCOUNTER 2024-12-24 07:09 | Outpatient (RCR) | payer MEDICARE, SELFPAY ==
[2024-12-24 07:32] LABS: Basophils Percent Auto 0.8 % (0.2-1.2); Eosinophils Absolute Auto 0.1 K/mm3 (0-0.3); Eosinophils Percent Auto 1.8 % (0-4.4); Hematocrit 41.5 % (37.0-47.0); Hemoglobin 13.6 g/dL (12.0-15.0); Immature Granulocyte Absolute 0.01 K/mm3 (0.00-0.031); Immature Granulocyte Percent A 0.3 % (0-0.5); Lymphocytes Percent Auto 36.9 % (18.3-44.2); Mean Corpuscular HGB Conc 32.8 g/dl (32-36); Mean Corpuscular Hemoglobin 29.6 pg (26-34); Mean Corpuscular Volume 90.4 fl (80-100); Mean Platelet Volume 9.4 fl (7.4-10.4); Monocytes Absolute Auto 0.3 K/mm3 (0.1-0.6); Monocytes Percent Auto 7.9 % (2.6-8.5); Neutrophils Percent Auto 52.3 % (45.5-73.1); Platelet Count Result 225 k/mm3 (150-375); Red Blood Count 4.59 M/mm3 (4.2-5.4); Red Cell Distribution Width 12.7 % (11.5-14.5); White Blood Count 3.8 K/mm3 (4.5-10.0)
[2024-12-24 07:46] LABS: Alanine Aminotransferase 15 U/L (6-35); Albumin Level 4.2 g/dL (3.5-5.1); Alkaline Phosphatase 75 U/L (38-126); Anion Gap 9 mmol/L (4-12); Aspartate Amino Transferase 22 U/L (14-36); Bilirubin,Total 0.6 mg/dL (0.2-1.3); Blood Urea Nitrogen 10 mg/dL (7-17); Calcium 9.8 mg/dL (8.4-10.2); Carbon Dioxide 26 mmol/L (22-30); Chloride 105 mmol/L (98-107); Estimated Glomerular Filt Rate > 60; Glucose 119 mg/dL (65-110); Sodium 140 mmol/L (137-145)
[2024-12-25 00:44] LABS: GGT 9 U/L (3-65)
[2024-12-27 15:03] LABS: Tacrolimus Prograf 3.4 mcg/L
== END 2025-03-24 23:59 | disposition home or self-care (01) ==
LOC: ANHLAB 07:09
PROVIDERS: PCP Family Medicine; Visit Provider Internal Medicine Gastroenterology
DX: Z94.4 Liver transplant status (principal); Z79.899 Other long term (current) drug therapy
CPT/HCPCS: 36415; 80053; 80197; 82977; 85025

== ENCOUNTER 2025-02-11 07:18 | Outpatient (CLI) | payer MEDICARE, SELFPAY ==
--- OUTSIDE RECORDS SUMMARY | 2025-02-11 07:26 | XMS_ITS | Encounter Summary ---
Author Organization [facility] Address [address] [place] [address] Care Team Providers Care Rn Procedures Name Role Phone Soha Briceno MD Primary Care Provider +1- [phone] Encounter Details Date Type Department Care Team (Latest Contact Info) Description 08/24/2018 Abstract [facility] Abundio Steinberg MD Social History Tobacco Use Types Packs/Day [...] on file documented as of this encounter Functional Status documented as of this encounter Plan of Treatment Not on file documented as of this encounter Visit Diagnoses Not on filedocumented in this encounter Care Teams Rn Procedures Relationship Specialty Start Date End Date Soha Briceno MD [address] [facility] [address] [place] [address] PCP - General FAMILY PRACTICE 07/29/18 documented as of this encounter
--- OUTSIDE RECORDS SUMMARY | 2025-02-11 07:26 | XMS_ITS | Referral Summary ---
Author Organization [facility] Address [address] [place] [address] Care Team Providers Care Finish Painter Name Role Phone Soha Briceno MD Primary Care Provider Marialuisa Cm RN Unavailable [phone] Allergies Active Allergy Reactions Criticality Noted Date Comments Misc Antifungal Combo Products Other (See comments) Low 07/09/2022 Transplant patient- oral antifungals Penicillins Itching,Rash Medium 06/14/2012 Medications calcium carb/vit D3/minerals (CALCIUM-VITAM IN D ORAL) Take by mouth daily Caltrate- calcium 600 mg +D 800 international units Active levothyroxine (SYNTHROID) 125 mcg tablet fraud analyst before breakfast 9 Active omeprazole (PriLOSEC) 20 mg capsule Take 1 capsule (20 mg total) by mouth daily 7 Active multivitamin tablet Take 1 tablet by mouth daily One a day - 1000 international units + Calcium 300 mg Total calcium 900 mg and total Vitamin D 1000 international units. Active calcium citrate/vitami n D3 (CITRACAL + D ORAL) Take by mouth 2 caps qd Active cholecalcifero l (Vitamin D3) 1,000 unit capsule Take 1 capsule (1,000 Units total) by mouth daily Active tacrolimus 0.5 mg immediate-rele ase capsule TAKE 3 CAPSULES BY MOUTH EVERY MORNING AND 2 CAPSULES EVERY EVENING 150 capsule 11 4 Active mycophenolate mofetil (CELLCEPT) 500 mg tablet TAKE 1 TABLET(500 MG) BY MOUTH TWICE DAILY 180 tablet 3 5 Active Active Problems Patient Care Coordination No te Formatting of this note migh t be different from the original. Labs: [facility]: fax [phone] Problem Noted Date Diagnosed Date History of liver transplant 11/16/2019 Assessment & Plan (11/16/2019 6:30 PM RADIOLOGICAL ENGINEER): Liver transplant approximately 5.6 years ago with excellent allograft function. I saw no reason change her current medications. She will continue to have labs on a quarterly basis. We will send standing orders to the local lab. She can be seen in follow-up every other year or sooner as clinically indicated. Peripheral neuropathy 11/16/2019 Autoimmune hepatitis 03/19/2015 Assessment & Plan (11/16/2019 6:31 PM RADIOLOGICAL ENGINEER): In remission on current immunosuppressive therapy. The elastography shows no evidence of advanced hepatic fibrosis, likely secondary to effective medical therapy. No further imaging required unless her clinical status changes. Hypothyroidism 06/14/2012 Overview (11/16/2019): Last Assessment & Plan: Hx of hypothyroidism Continue Home dose of Synthroid 137 mcg qd Dc today Last Assessment & Plan: Hx of hypothyroidism Continue Home dose of Synthroid 137 mcg qd Dc today Immunizations Immunization Administration Dates Next Due Pfizer SARS-CoV-2 Monovalent Vaccination (12+ Yrs) PURPLE 06/07/2021,10/30/2020,10/09/2020 Social History Tobacco Use Types Packs/Day Years Used Date Smoking Tobacco: Never Smokeless Tobacco: Never Tobacco Cessation:Counseling Given: Not Answered Alcohol Use Standard Drinks/Week Comments Not Currently 0 (1 standard drink = 0.6 oz pur e alcohol) Personal Safety Answer Date Recorded Getting School Help Needed Not on file 10/21 Comments Unknown Sex and Gender Information Value Date Recorded Sex Assigned at Not on file Legal Sex Female 3:13 PM CDT Gender Identity Not on file Sexual Orientation Not on file Last Filed Vital Signs Vital Sign Reading Time Taken Comments Blood Pressure 148/92 10/21/2023 7:42 AM RADIOLOGICAL ENGINEER Pulse 79 10/21/2023 7:42 AM RADIOLOGICAL ENGINEER Temperature 36.6 C (97.9 F) 10/21/2023 7:42 AM RADIOLOGICAL ENGINEER Respiratory Rate - - Oxygen Saturation - - Inhaled Oxygen Concentration - - Weight 84.2 kg (185 lb 9.6 oz) 10/21/2023 7:42 A M RADIOLOGICAL ENGINEER Height 165.1 cm (5' 5 ) 10/21/2023 7:42 AM RADIOLOGICAL ENGINEER Body Mass Index 30.89 10/21/2023 7:42 AM RADIOLOGICAL ENGINEER Plan of Treatment Not on file Insurance MEDICARE [facility] MEDICARE [facility] Care Teams Finish Painter Relationship Specialty Start Date End Date Soha Briceno MD [address] [facility] [address] [place] [address] PCP - General Family Medicine 04/12/19 Marialuisa Cm, THIEN Seat Pack Inspector Transplant 11/04/19
--- OUTSIDE RECORDS SUMMARY | 2025-02-11 07:26 | XMS_ITS | Encounter Summary ---
Author Organization [facility] Address [address] [place] [address] Care Team Providers Care Wire Weaver Cloth Name Role Phone Soha Briceno MD Primary Care Provider +1- [phone] Encounter Details Date Type Department Care Team (Latest Contact Info) Description 06/11/2018 Abstract [facility] , Abundio Landeros MD [...] on filedocumented in this encounter Care Teams Wire Weaver Cloth Relationship Specialty Start Date End Date Soha Briceno MD [address] [facility] [address] [place] [address] PCP - General FAMILY PRACTICE 07/29/18 documented as of this encounter
--- OUTSIDE RECORDS SUMMARY | 2025-02-11 07:26 | XMS_ITS ---
Author Organization [facility] Address [address] [place] [address] Care Team Providers Care Supervisor Malted Milk Name Role Phone Soha Briceno MD Primary Care Provider Marialuisa Cm RN Unavailable [phone] Transplant Episode Liver Recipient [facility] ([place], [place]) - [facility] Transplanted on 02/22/2014 Marked as Active Follow-up on 02/22/2014 Reason: Transplanted at Outside Center Liver CoordinatorMarialuisa Cm RN Fax: N/A Email: N/A Transplanted Elsewhere: [facility] ([place], [place]) - [facility] Coordinator: Phone: Fax: [place] Organ Diagnosis Organ Primary Contributory Liver Alcoholic Cirrhosis Care Team Name Role Phone Fax Email Marialuisa Cm RN Liver Coordinator [phone] N/A N/A Ludmila Perez LMSW Mounter Sousaphones N/A N/A N/A Tami Heredia RN Secondary Coordinator Secondary Liver Coordinator [phone] N/A N/A Tia Thao RD Dietitian N/A N/A N/A Livia Adkins Diesel Stationary Engineer [phone] N/A N/A Soha Briceno MD Referring Physician [phone] N/A Events Post-Transplant Pre-Transplant Transplanted: 02/22/2014 Referred: 04/12/2019
--- OUTSIDE RECORDS SUMMARY | 2025-02-11 07:26 | XMS_ITS | Encounter Summary ---
Author Organization [facility] Address [address] [place] [address] Care Team Providers Care Manager Learning Name Role Phone Soha Briceno MD Primary Care Provider [phone] Encounter Details Date Type Department Care Team (Latest Contact Info) Description 05/03/2015 Abstract [facility] , Abundio Landeros [...] on filedocumented in this encounter Care Teams Manager Learning Relationship Specialty Start Date End Date Soha Briceno MD [address] [facility] [address] [place] [address] PCP - General FAMILY PRACTICE 07/29/18 documented as of this encounter
--- OUTSIDE RECORDS SUMMARY | 2025-02-11 07:26 | XMS_ITS | Clinical Summary ---
Author Organization [facility] Address [address] [place] [address] Care Team Providers Care Track Repair Person Name Role Phone Soha Briceno MD Primary Care Provider Marialuisa Cm RN Unavailable [phone] Allergies Active Allergy Reactions Criticality Noted Date Comments Misc Antifungal Combo Products Other (See comments) Low 07/09/2022 Transplant patient- oral antifungals Penicillins Itching,Rash Medium 06/14/2012 Medications calcium carb/vit D3/minerals (CALCIUM-VITAM IN D ORAL) Take by mouth daily Caltrate- calcium 600 mg +D 800 international units Active levothyroxine (SYNTHROID) 125 mcg tablet hydrodynamics professor before breakfast 9 Active omeprazole (PriLOSEC) 20 [...] t be different from the original. Labs: [facility]: fax [phone] Problem Noted Date Diagnosed Date History of liver transplant 11/16/2019 Assessment & Plan (11/16/2019 6:30 PM FUNERAL PRE NEED CONSULTANT): Liver transplant approximately 5.6 years ago with excellent allograft function. I saw no reason change her current medications. She will continue to have labs on a quarterly basis. We will send standing orders to the local lab. She can be seen in follow-up every other year or sooner as clinically indicated. Peripheral neuropathy 11/16/2019 Autoimmune hepatitis 03/19/2015 Assessment & Plan (11/16/2019 6:31 PM FUNERAL PRE NEED CONSULTANT): In remission on current immunosuppressive therapy. The [...] SARS-CoV-2 Monovalent Vaccination (12+ Yrs) PURPLE 06/07/2021,10/30/2020,10/09/2020 Surgical History Surgery Date Site/Laterality Comments LIVER TRANSPLANT 02/22/2014 LIVER BIOPSY ESOPHAGOGASTRODUODENOSCOPY HERNIA REPAIR TUBAL LIGATION ERCP W/ PLASTIC STENT PLACEMENT SINUS SURGERY US GUIDED PARACENTESIS 04/03/2014 N/A US GUIDED PARACENTESIS 02/21/2014 N/A US GUIDED PARACENTESIS 02/14/2014 N/A US GUIDED PARACENTESIS 02/06/2014 N/A US GUIDED PARACENTESIS 01/24/2014 N/A US GUIDED PARACENTESIS 01/02/2014 N/A US GUIDED PARACENTESIS 12/16/2013 N/A US GUIDED PARACENTESIS 12/06/2013 N/A US GUIDED PARACENTESIS 11/25/2013 N/A US GUIDED PARACENTESIS 11/09/2013 N/A US GUIDED PARACENTESIS 10/28/2013 N/A US GUIDED PARACENTESIS 10/11/2013 N/A US GUIDED PARACENTESIS 10/03/2013 N/A US GUIDED PARACENTESIS 09/22/2013 N/A US GUIDED PARACENTESIS 09/12/2013 N/A US GUIDED PARACENTESIS 09/02/2013 N/A US GUIDED PARACENTESIS 08/30/2013 N/A US GUIDED PARACENTESIS 08/23/2013 N/A US GUIDED PARACENTESIS 08/09/2013 N/A US GUIDED PARACENTESIS 07/27/2013 N/A US GUIDED PARACENTESIS 07/19/2013 N/A US GUIDED PARACENTESIS 07/12/2013 N/A US GUIDED PARACENTESIS 07/01/2013 N/A US GUIDED PARACENTESIS 06/22/2013 N/A US GUIDED PARACENTESIS 06/16/2013 N/A US GUIDED PARACENTESIS 06/11/2013 N/A US GUIDED PARACENTESIS 05/30/2013 N/A US GUIDED PARACENTESIS 05/06/2013 N/A US GUIDED PARACENTESIS 03/21/2013 N/A Medical History Medical History Date Comments Alcoholic cirrhosis of liver with ascites (HCC) Biliary anastomotic stricture (HCC) Family History Medical History Relation Name Comments Cancer Father Diabetes Father Cancer Mother Osteoporosis Mother Hip fracture Paternal Grandmother Osteoporosis Paternal Grandmother Scoliosis Neg Hx Relation Name Status Comments Father Mother Paternal Grandmother Social History Tobacco Use Types Packs/Day Years [...] on file Sexual Orientation Not on file Obstetrics History Last Filed Vital Signs Vital Sign Reading Time Taken Comments Blood Pressure 148/92 10/21/2023 7:42 AM FUNERAL PRE NEED CONSULTANT Pulse 79 10/21/2023 7:42 AM FUNERAL PRE NEED CONSULTANT Temperature 36.6 C (97.9 F) 10/21/2023 7:42 AM FUNERAL PRE NEED CONSULTANT Respiratory Rate - - Oxygen Saturation - - Inhaled Oxygen Concentration - - Weight 84.2 kg (185 lb 9.6 oz) 10/21/2023 7:42 A M FUNERAL PRE NEED CONSULTANT Height 165.1 cm (5' 5 ) 10/21/2023 7:42 AM FUNERAL PRE NEED CONSULTANT Body Mass Index 30.89 10/21/2023 7:42 AM FUNERAL PRE NEED CONSULTANT Plan of Treatment Health Maintenance Due Date Last Done Comments Cervical Cancer Screening 1962 Colon Cancer Screening-Colonoscopy 1962 Depression Screening 1962 Hepatitis C Screening 1962 Hepatitis B Screening 1980 Regular Well Visit/Exam 18-64 1980 Pneumococcal vaccine <65 (2 of 2 - PCV) 05/27/2014 05/27/2013 Breast Cancer Screening-Mammogram 02/12/2018 02/12/2017, 01/30/2016, 10/11/2013 Covid-19 Vaccine (2023-2 5 season) 2024 02/03/2022, 06/07/2021, 10/30/2020, Additional history exists Influenza Vaccine (#1) 2024 9, 07/19/2018, 07/18/2018, Additional history exists DTaP/Tdap/Td Vaccine (2 - Td or Tdap) 10/20/2028 10/20/2018 Zoster Vaccine Completed 02/22/2019, 12/08/[address] [place] [address] MEDICARE [facility] [place] [address] MEDICARE [facility] Care Teams Track Repair Person Relationship Specialty Start Date End Date Soha Briceno MD [address] [place] [address] PCP - General Family Medicine 04/12/19 Marialuisa Cm, RN Tax Associate Transplant 11/04/19
--- OUTSIDE RECORDS SUMMARY | 2025-02-11 07:26 | XMS_ITS | Continuity of Care Document ---
Author Organization [facility] Address [address] [place] [address] [address] [place] [address] Phone Care Team Providers Care Costume Designer Name Role Phone Davie BUNCH, Abdi Unavailable [...] Diagnoses Date Provider Providers Copied on Encounter [facility], [address] [place] [address] [address], [place], [place], [id number] , [place] tel: [phone] [facility] Open angle with borderline findings, PCO (chief complaint) Other secondary cataract, bilateralOpen angle with borderline findings, low risk, bilateralPresence of intraocular lens 7 Broderick Abdi. [address] [facility], [address], [place], [address]. tel: [phone] [facility], [address] [facility] [address], [place], [id number] , [place] tel: [phone] [facility] 1 year f/u (chief complaint) Other secondary cataract, bilateralPresence of intraocular lensOpen angle with borderline findings, low risk, bilateral 6 Broderick Abdi. [address] [facility], [address], [place], [address]. tel: [phone] [facility], [address], [id number] , [place] tel: [phone] [facility] Pseudophakia OU (chief complaint) Other secondary cataract, bilateralPresence of intraocular lens Oct-2 3- 5 Broderick Abdi. [address] [facility], [address], [place], [address]. tel: [phone] [facility], [address] [place] [address], [id number] , [place] tel: [phone] [facility] No Information Oct-2 3-201 4 Liseth Osvaldo. [address] [facility], [address], [place], [place], [id number] . tel: [phone] [facility], [address] [facility] [address], [place], [id number] , [place] tel:[phone] [facility] No Information Oct-2 3-201 4 Broderick Abdi. [address] [facility], [address], [place], [address]. tel: [phone] [facility], [address] [place] [address] [address], [place], [place], [id number] , [place] tel: [phone] [facility] No Information Oct-1 6-201 4 Broderick Abdi. [address] [facility], [address], [place], [address]. tel: [phone] [facility], [address] [facility] [address], [place], [place], [id number] , [place] tel: [phone] [facility] No Information Oct-1 5-201 4 Liseth Osvaldo. [address] [facility], [address], [place], [place], [id number] . tel:[phone] [facility], [address] [facility] [address], [place], [id number] , [place] tel:[phone] [facility] No Information Oct-0 9-201 4 Liseth Osvaldo. [address] [facility] [address], [place], [place], [id number] . tel: [phone] [facility], [address] [place] [address], [place], [id number] , [place] tel: [phone] [facility] No Information Oct-0 2-201 4 Broderick Abdi. [address] [facility], [address], [place], [address]. tel: [phone] [facility], [address] [place] [address], [place], [id number] , [place] tel: [phone] [facility] No Information Oct-0 1-201 4 Liseth Osvaldo. [address] [facility] [address], [place], [place], [id number] . tel: [phone] [facility], [address] [facility] [address], [place], [id number] , [place] tel: [phone] [facility] No Information Sep-2 2-201 4 Liseth Osvaldo. [address] [facility], [address], [place], [place], [id number] . tel: [phone] [facility], [address], [place], [place], [id number] , tel: [phone] [facility] No Information 4 Liseth Riley. [address] [facility], [address], [place], [place], [id number] . tel: [phone] Family History Family Member Type Diagnosis Age At Onset Problem (finding) Family history of Retin al disease Problem (finding) Family history of catar act Problem (finding) Family history of Diabe dahiana mellitus Payers Payer name Insurance type Covered alliance party ID Authoriza tion(s) Medicare Part B [id number] [facility] [id number] Social History Type Description Quantity Date Captured [...] for worsening PCO symptoms.She has relocated to [facility] and will be finding a new [...]
--- OUTSIDE RECORDS SUMMARY | 2025-02-11 07:26 | XMS_ITS | Clinical Summary ---
Author Organization 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 Immunosuppression ([facility]) 07/19/2015 Peripheral nerve disease 05/03/2015 Autoimmune hepatitis ([facility]) 5 History of liver transplant ([facility]) Overview (08/24/2018): Last Assessment & Plan: OLT 02/22/14 2^ to ETOH ERCP done 03/03 stent placed Redmitted with Increased LFTs Liver biopsy: no rejection Bilirubin & Alk Phos still elevated most likely cholestasis Dc home today Cirrhosis of liver ([facility]) 02/22/2014 Hepatic encephalopathy ([facility]) 014 Overview (11/29/2018): Last Assessment [...] / day. - Avoid diarrhea Alcoholic cirrhosis ([facility]) 03/15/2013 Hypothyroidism 06/14/2012 Overview (08/24/2018): Last Assessment & Plan: Hx of hypothyroidism Continue Home dose of Synthroid 137 mcg qd Dc today Immunizations Immunization Administration Dates Next Due Flu Vaccine, 3 [...] - Oxygen Saturation 100% 11/29/2018 10:54 AM SEAFOOD CLERK Inhaled Oxygen Concentration - - Weight 85.7 kg (189 lb) 02/07/2019 10:03 AM CDT Height 167.6 cm (5' 6 ) 02/07/2019 10:03 AM CDT Body Mass Index 30.51 02/07/2019 10:03 AM CDT Plan of Treatment Health Maintenance Due Date Last Done Comments Cervical Cancer Screening Pa p Smear (Age 30 to 64) Every 3 Years 1962 Colorectal Cancer Screening Colonoscopy (10 Years) 1962 Annual Physical 1965 COVID-19 Vaccine (#1) 1967 Hepatitis C 1980 DTaP, Tdap and Td Vaccines ( 1 - Tdap) 1981 Zoster Vaccines (1 of 2) 1981 Cervical Cancer Screening Pa p with HPV Testing (Age 30 to 64) Every 5 Years 1992 Cervical Cancer Screening with HPV 1992 Mammogram Screening 2002 Pneumococcal Vaccine: 50+ Ye ars (2 of 2 - PCV) 05/27/2014 05/27/2013 RSV Immunization or 60+ Years (1 - Risk 60-74 years 1-dose series) 2022 Meningococcal B Vaccine Aged Out No l onger eligible based on patient's age to complete this topic Meningococcal Vaccine Aged Out No abiodun americo eligible based on patient's age to complete this topic RSV Immunizations Under 20 Months Aged Out No longer eligible based on patient's age to complete this topic Insurance MEDICARE [facility] Care Teams Lithographic Printing Machinist Relationship Specialty Start Date End Date Soha Briceno MD [address] [facility] [address] [place] [address] PCP - General FAMILY PRACTICE 07/29/18
--- OUTSIDE RECORDS SUMMARY | 2025-02-11 07:26 | XMS_ITS | Continuity of Care Document ---
Author Organization [facility] Address [address] [address] Phone Care Team Providers Care Bench Assembler Electrical Name Role Phone [facility] Unavailable Maya vailable Procedures Procedure Date CATARACT SURG W/IOL, 1 STAGE Astigmatism-correct function CATARACT SURG W/IOL, 1 STAGE Astigmatism-correct function Advance Directives Directive Yes / No Effective Date File Name No Information Encounters Encounter Description Practice Location Reason(s) For Visit Diagnoses Date Provider Providers Copied on Encounter [facility], [address] [place] [address], [id number], [place] tel:[phone] [facility] No Information [facility]. [address], [id number]. tel:[phone] Referring Provider: Osvaldo Bardales, [address] [place] [address], [address]. tel:[phone] [facility], [address] [place] [address], [id number], [place] tel:[phone] [facility] No Information [facility]. [address], [id number]. tel:[phone] Referring Provider: Osvaldo Bardales, [address] [place] [address] [address], [place], [address]. tel:[phone] Family History Family Member Type Diagnosis Age At Onset No Information Payers Payer name Insurance type Covered republican ID Authoriza tion(s) [facility] PPO BL [id number] Social History Type Description Quantity Date Captured [...]
[2025-02-11 08:36] LABS: Cholesterol 163 mg/dL (0-200); HDL Direct 62 mg/dL; Triglycerides 147 mg/dL (<150)
[2025-02-11 08:46] LABS: LDL Cholesterol Direct 53 mg/dL
[2025-02-11 08:55] LABS: Free T4 Free Thyroxine 1.31 ng/dL (0.78-2.19)
[2025-02-11 09:04] LABS: Thyroid Stimulating Hormone 0.854 uIU/mL (0.465-4.680)
[2025-02-11 10:54] LABS: Hemoglobin A1C 5.3 % (<5.7)
== END 2025-02-11 07:19 | disposition home or self-care (01) ==
PROVIDERS: PCP Family Medicine; Visit Provider Student in an Organized Health Care Education/Training Program
DX: E78.5 Hyperlipidemia, unspecified (principal); Z13.220 Encounter for screening for lipoid disorders; E03.9 Hypothyroidism, unspecified; Z13.1 Encounter for screening for diabetes mellitus
CPT/HCPCS: 36415; 80061; 83036; 84439; 84443

== ENCOUNTER 2025-04-01 07:19 | Outpatient (RCR) | payer MEDICARE, SELFPAY ==
[2025-04-01 07:52] LABS: Hematocrit 41.6 % (37.0-47.0); Hemoglobin 13.5 g/dL (12.0-15.0); Immature Granulocyte Percent A 0.2 % (0-0.5); Lymphocytes Absolute Auto 1.49 K/mm3 (0.9-3.2); Mean Corpuscular HGB Conc 32.5 g/dl (32-36); Mean Corpuscular Hemoglobin 29.7 pg (26-34); Mean Corpuscular Volume 91.6 fl (80-100); Nucleated Red Blood Cells Absolute Auto 0.000 K/mm3 (0.0-0.012); Nucleated Red Blood Cells Perc 0.0 % (0.0-0.2); Platelet Count Result 220 k/mm3 (150-375); Red Blood Count 4.54 M/mm3 (4.2-5.4); White Blood Count 4.2 K/mm3 (4.5-10.0)
[2025-04-01 08:01] LABS: Alanine Aminotransferase 16 U/L (6-35); Albumin Level 4.1 g/dL (3.5-5.1); Alkaline Phosphatase 71 U/L (38-126); Anion Gap 9 mmol/L (4-12); Aspartate Amino Transferase 26 U/L (14-36); Bilirubin,Total 0.4 mg/dL (0.2-1.3); Blood Urea Nitrogen 11 mg/dL (7-17); Calcium 9.7 mg/dL (8.4-10.2); Carbon Dioxide 26 mmol/L (22-30); Chloride 106 mmol/L (98-107); Estimated Glomerular Filt Rate > 60; Glucose 111 mg/dL (65-110); Potassium 3.9 mmol/L (3.4-5.0); Sodium 141 mmol/L (137-145); Total Protein 6.6 g/dL (6.3-8.2)
[2025-04-01 15:38] LABS: GGT 9 U/L (3-65)
[2025-04-04 13:48] LABS: Tacrolimus Prograf. 3.8 mcg/L
== END 2025-06-30 23:59 | disposition home or self-care (01) ==
LOC: ANHLAB 07:19
PROVIDERS: PCP Family Medicine; Visit Provider Internal Medicine Gastroenterology
DX: Z94.4 Liver transplant status (principal); Z79.899 Other long term (current) drug therapy
CPT/HCPCS: 36415; 80053; 80197; 82977; 85025

== ENCOUNTER 2025-06-10 07:34 | Outpatient (CLI) | payer MEDICARE, SELFPAY ==
--- OUTSIDE RECORDS SUMMARY | 2014-08-02 04:30 | XMS_ITS | Continuity of Care Document ---
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. [address], [id number]. tel:[phone] Referring Provider: Osvaldo Bardales, [address] [place] [address], [id number]. tel:[phone] [facility], [address] [place] [address], [id number], [place] tel:[phone] [facility] No Information [facility]. [address], [id number]. tel:[phone] Referring Provider: Osvaldo Bardales, [address] [place] [address] [address], [address]. tel:[phone] Family History Family Member Type Diagnosis Age At Onset No Information Payers Payer name Insurance type Covered constitution party ID Authoriza tion(s) [facility] PPO BL [id number] Social History Type Description Quantity Date Captured [...]
--- OUTSIDE RECORDS SUMMARY | 2017-09-04 04:20 | XMS_ITS | Continuity of Care Document ---
Author Organization 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 1000 [facility], [address], [place], [address]. tel: [phone] [facility], 1000 [facility] [address], [place], [id number] , [place] tel: [phone] [facility] 1 year f/u (chief complaint) Other secondary cataract, bilateralPresence of intraocular lensOpen angle with borderline findings, low risk, bilateral 6 Broderick Abdi. 1000 [facility], [address], [place], [address]. tel: [phone] [facility], [address], [id number] , [place] tel: [phone] [facility] Pseudophakia OU (chief complaint) Other secondary cataract, bilateralPresence of intraocular lens Oct-2 3- 5 Broderick Abdi. 1000 [facility], [address], [place], [address]. tel: [phone] [facility], [address] [place] [address], [id number] , [place] tel: [phone] [facility] No Information Oct-2 3-201 4 Liseth Osvaldo. 1000 [facility], [address], [place], [place], [id number] . tel: [phone] [facility], 1000 [facility] [address], [place], [id number] , [place] tel:[phone] [facility] No Information Oct-2 3-201 4 Broderick Abdi. 1000 [facility], [address], [place], [address]. tel: [phone] [facility], [address] [place] [address] [address], [place], [place], [id number] , [place] tel: [phone] [facility] No Information Oct-1 6-201 4 Broderick Abdi. 1000 [facility], [address], [place], [address]. tel: [phone] [facility], 1000 [facility] [address], [place], [place], [id number] , [place] tel: [phone] [facility] No Information Oct-1 5-201 4 Liseth Osvaldo. 1000 [facility], [address], [place], [place], [id number] . tel:[phone] [facility], 1000 [facility] [address], [place], [id number] , [place] tel:[phone] [facility] No Information Oct-0 9-201 4 Liseth Osvaldo. 1000 [facility] [address], [place], [place], [id number] . tel: [phone] [facility], [address] [place] [address], [place], [id number] , [place] tel: [phone] [facility] No Information Oct-0 2-201 4 Broderick Abdi. 1000 [facility], [address], [place], [address]. tel: [phone] [facility], [address] [place] [address], [place], [id number] , [place] tel: [phone] [facility] No Information Oct-0 1-201 4 Liseth Osvaldo. 1000 [facility] [address], [place], [place], [id number] . tel: [phone] [facility], 1000 [facility] [address], [place], [id number] , [place] tel: [phone] [facility] No Information Sep-2 2-201 4 Liseth Osvaldo. 1000 [facility], [address], [place], [place], [id number] . tel: [phone] [facility], [address], [place], [place], [id number] , tel: [phone] [facility] No Information 4 Liseth Riley. [address] [facility], [address], [place], [place], [id number] . tel: [phone] Family History Family Member Type Diagnosis Age At Onset Problem (finding) Family history of Retin al disease Problem (finding) Family history of catar act Problem (finding) Family history of Diabe dahiana mellitus Payers Payer name Insurance type Covered democrat ID Authoriza tion(s) Medicare Part B [id number] [facility] [id number] Social History Type Description Quantity Date Captured [...] colton Follow up - pt is mo cata and will not be coming back to [facility] Impression/Plan Related to Prese nce of intraocular lens Impression/Plan - Observe. Relat ed to Open angle with borderline findings, low risk, bilateral Impression/Plan - Mo nitor for worsening PCO symptoms.She has relocated to [facility] and will be finding a new eyecare provider down there. Related to Other secondary cataract, bilateral Return in 1 years wi th TLF for Refraction , Dilated Exam , Complete Exam. Related to Other secondary cataract, bilateral Follow up - 09/04/17 @ 9:20 TLF Impression/Plan - Observe. Relat ed to Open angle with borderline findings, low risk, bilateral Impression/Plan Related to Prese nce of intraocular lens Impression/Plan - Mo nitor for worsening PCO symptoms. Related to Other secondary cataract, bilateral Follow up - Return i n 1 years with TLF for Refraction , Dilated Exam , Complete Exam. Related to Other secondary cataract, bilateral Return in 1 year wit h TLF for Dilated Exam , Refraction , IOP check. Related to Other secondary cataract, bilateral Follow up - 08/11/16 @ 100 with TLF Impression/Plan Related to Prese nce of intraocular lens Impression/Plan - Mo nitor for vision changes. Related to Other secondary cataract, bilateral Oct Follow up - Return i n 1 year with TLF for Dilated Exam , Refraction , IOP check. Related to Other secondary cataract, bilateral Assessments [...]
--- OUTSIDE RECORDS SUMMARY | 2025-06-10 07:42 | XMS_ITS | Encounter Summary ---
Author Organization [facility] Address [address] [place] [address] Care Team Providers Care Quality Assurance Intern Name Role Phone Soha Briceno MD Primary Care Provider Marialuisa Cm RN Unavailable [phone] Encounter Details Date Type Department Care Team (Latest Contact Info) Description 06/02/2025 Results Follow-Up [facility] Transplant Liver [address] [facility] [phone] [place] [address] Marialuisa Cm, RN CBC with auto differential, Comprehensive metabolic panel Social History Tobacco Use Types Packs/Day Years Used Date Smoking Tobacco: Never Smokeless Tobacco: Never Alcohol Use Standard Drinks/Week Comments Not Currently [...] on filedocumented in this encounter Care Teams Quality Assurance Intern Relationship Specialty Start Date End Date Soha Briceno MD [address] [email or web address] [address] [place] [address] PCP - General Family Medicine 04/12/19 Marialuisa Cm, RN Fiscal Manager Transplant 11/04/19 documented as of this encounter
--- OUTSIDE RECORDS SUMMARY | 2025-06-10 07:42 | XMS_ITS | Clinical Summary ---
Author Organization [facility] Address [address] [place] [address] Care Team Providers Care Poultry Hatchery Supervisor Name Role Phone Soha Briceno MD Primary Care Provider Marialuisa Cm RN Unavailable [phone] Allergies Active Allergy Reactions Criticality Noted Date Comments Misc Antifungal Combo Products Other (See comments) Low 07/09/2022 Transplant patient- oral antifungals Penicillins Itching,Rash Medium 06/14/2012 Medications calcium carb/vit D3/minerals (CALCIUM-VITAM IN D ORAL) Take by mouth daily Caltrate- calcium 600 mg +D 800 international units Active levothyroxine (SYNTHROID) 125 mcg tablet tip stitcher before breakfast 9 Active omeprazole (PriLOSEC) 20 [...] t be different from the original. Labs: [facility]: fax [phone] Problem Noted Date Diagnosed Date History of liver transplant 11/16/2019 Assessment & Plan (11/16/2019 6:30 PM HAND GLASS CUTTER): Liver transplant approximately 5.6 years ago with excellent allograft function. I saw no reason change her current medications. She will continue to have labs on a quarterly basis. We will send standing orders to the local lab. She can be seen in follow-up every other year or sooner as clinically indicated. Peripheral neuropathy 11/16/2019 Autoimmune hepatitis 03/19/2015 Assessment & Plan (11/16/2019 6:31 PM HAND GLASS CUTTER): In remission on current immunosuppressive therapy. The [...] of Synthroid 137 mcg qd Dc today Encounters Date Type Department Care Team Description 06/02/2025 Results Follow-Up [facility] Transplant Liver [address] [facility] [address] [place] [address] [id number] [place] [address] Marialuisa Cm, THIEN CBC with auto differential, Comprehensive metabolic panel 05/26/2025 Telephone [facility] Transplant Liver [address] [facility] [address] [employer] [phone] [place] [address] Tamy Metz RN 05/26/2025 Documentation [facility] Liver [address] [facility] [address] [facility] [id number] [place] [address] Tamy Metz RN Appointment/Schedules from Last 3 Months Immunizations Immunization Administration Dates Next Due Pfizer [...] Comments Blood Pressure 148/92 10/21/2023 7:42 AM HAND GLASS CUTTER Pulse 79 10/21/2023 7:42 AM HAND GLASS CUTTER Temperature 36.6 C (97.9 F) 10/21/2023 7:42 AM HAND GLASS CUTTER Respiratory Rate - - Oxygen Saturation - - Inhaled Oxygen Concentration - - Weight 84.2 kg (185 lb 9.6 oz) 10/21/2023 7:42 A M HAND GLASS CUTTER Height 165.1 cm (5' 5) 10/21/2023 7:42 AM HAND GLASS CUTTER Body Mass Index 30.89 10/21/2023 7:42 AM HAND GLASS CUTTER Plan of Treatment Health Maintenance Due Date Last Done Comments Cervical Cancer Screening 1962 Colon Cancer Screening-Colonoscopy 1962 Depression Screening 1962 Hepatitis C Screening 1962 Hepatitis B Screening 1980 Regular Well Visit/Exam 18-64 1980 Pneumococcal vaccine <65 (2 of 2 - PCV) 05/27/2014 05/27/2013 Breast Cancer Screening-Mammogram 02/12/2018 02/12/2017, 01/30/2016, 10/11/2013 Covid-19 Vaccine (5 - 2023-2 5 season) 2024 02/03/2022, 06/07/2021, 10/30/2020, Additional history exists Influenza Vaccine (#1) 2025 9, 07/19/2018, 07/18/2018, Additional history exists DTaP/Tdap/Td Vaccine (2 - Td or Tdap) 10/20/2028 10/20/2018 Zoster Vaccine Completed 02/22/2019, 12/08/2018 Procedures Procedure Name Priority Date/Time Associated Diagnosis Comments TACROLIMUS LEVEL, TROUGH Routine 04/01/2025 GAMMA GT Routine 04/01/2025 CBC WITH AUTO DIFFERENTIAL Routine 04/01/2025 COMPREHENSIVE METABOLIC PANEL Routine 04/01/2025 from Last 3 Months Results * (ABNORMAL) Tacrolimus level trough (04/01/2025) SCRIBED Tacrolimus, trough 3.8(A) 5 - 20 TXP NO LAB FOUND Blood 04/01/2025 Historical Provider LAB BLOOD ORDERABLES Hilda l Result Performing Organization Address [facility] de Phone Number TXP NO LAB FOUND * (ABNORMAL) CBC with auto differential (04/01/2025) SCRIBED WBC 4.2(A) 4.5 - 10.0 K/cumm TXP NO LAB FOUND SCRIBED Hemoglobin 13.5 12.0 - 15.0 g/dL TXP NO LAB FOUND SCRIBED Hematocrit 41.6 37.0 - 47.0 % TXP NO LAB FOUND SCRIBED Platelets 220 150 - 375 K/cumm TXP NO LAB FOUND SCRIBED RBC 4.54 4.20 - 5.40 M/cumm TXP NO LAB FOUND SCRIBED Neutrophils 54.5 45.5 - 73.1 % TXP NO LAB FOUND SCRIBED Imm Granulocytes 0.2 0.0 - 0.5 % TXP NO LAB FOUND SCRIBED Lymphocytes 35.5 18.3 - 44.2 % TXP NO LAB FOUND SCRIBED Monocytes 6.9 2.6 - 8.5 % TXP NO LAB FOUND SCRIBED Eosinophils 2.4 0.0 - 4.4 % TXP NO LAB FOUND SCRIBED Basophils 0.5 0.2 - 1.2 % TXP NO LAB FOUND Blood 04/01/2025 Historical Provider LAB BLOOD ORDERABLES Hilda l Result Performing Organization Address [facility]/ZIP Co de Phone Number TXP NO LAB FOUND * Gamma GT (04/01/2025) SCRIBED GGT 9 3 - 65 TXP NO L AB FOUND Blood 04/01/2025 [facility] Provider LAB BLOOD ORDERABLES Hilda l Result Performing Organization Address [facility] de Phone Number TXP NO LAB FOUND * (ABNORMAL) Comprehensive metabolic panel (04/01/2025) SCRIBED Sodium 141 137 - 145 mmol/L TXP NO LAB FOUND SCRIBED Potassium 3.9 3.4 - 5 mmol/L TXP NO LAB FOUND SCRIBED Chloride 106 98 - 107 mmol/L TXP NO LAB FOUND SCRIBED Carbon Dioxide 26 22 - 30 mmol/L TXP NO LAB FOUND SCRIBED Urea Nitrogen (BUN) 11 7 - 17 mg/dl TXP NO LAB FOUND SCRIBED Creatinine 0.87 0.7 - 1 mg/dl TXP NO LAB FOUND SCRIBED Glucose 111(A) 65 - 110 mg/dl TXP NO LAB FOUND SCRIBED Calcium 9.7 8.4 - 10.2 mg/dl TXP NO LAB FOUND SCRIBED Bilirubin 0.4 0.2 - 1.3 mg/dl TXP NO LAB FOUND SCRIBED Plasma Protein 6.6 6.3 - 8.2 g/dl TXP NO LAB FOUND SCRIBED Albumin 4.1 3.5 - 5.1 g/dl TXP NO LAB FOUND SCRIBED Alkaline Phosphatase 71 38 - 126 Units/L TXP NO LAB FOUND SCRIBED Alanine Transaminase (ALT) 16 6 - 35 Units/L TXP NO LAB FOUND SCRIBED Aspartate Transaminase (AST) 26 14 - 36 Units/L TXP NO LAB FOUND Blood 04/01/2025 Historical Provider LAB BLOOD ORDERABLES Edit ed Result - Final Performing Organization Address [facility] Co de Phone Number TX NO LAB FOUND from Last 3 Months Insurance MEDICARE [facility] MEDICARE [facility] Care Teams Poultry Hatchery Supervisor Relationship Specialty Start Date End Date Soha Briceno MD [address] [facility] [address] [place] [address] PCP - General Family Medicine 04/12/19 Marialuisa Cm, RN Con[employer] Transplant 11/04/19
--- OUTSIDE RECORDS SUMMARY | 2025-06-10 07:43 | XMS_ITS | Encounter Summary ---
Author Organization [facility] Address [address] [place] [address] Care Team Providers Care Extern Name Role Phone Soha Briceno MD Primary Care Provider [phone]- [phone] Encounter Details Date Type Department Care Team (Latest Contact Info) Description 06/11/2018 Abstract [facility] Medical Group , Abundio Landeros [...] on filedocumented in this encounter Care Teams Extern Relationship Specialty Start Date End Date Soha Briceno MD [address] [facility] [address] [place] [address] PCP - General FAMILY PRACTICE 07/29/18 documented as of this encounter
--- OUTSIDE RECORDS SUMMARY | 2025-06-10 07:43 | XMS_ITS | Encounter Summary ---
Author Organization [facility] Address [address] [place] [address] Care Team Providers Care Residential Case Manager Name Role Phone Soha Briceno MD Primary Care Provider +1- [phone] Encounter Details Date Type Department Care Team (Latest Contact Info) Description 05/03/2015 Abstract [facility] Medical Group , Abundio Landeros [...] on filedocumented in this encounter Care Teams Residential Case Manager Relationship Specialty Start Date End Date Soha Briceno MD [address] [facility] [address] [place] [address] PCP - General FAMILY PRACTICE 07/29/18 documented as of this encounter
--- OUTSIDE RECORDS SUMMARY | 2025-06-10 07:43 | XMS_ITS | Encounter Summary ---
Author Organization [facility] Address [address] [place] [address] Care Team Providers Care Railway Yard Assistant Name Role Phone Soha Briceno MD Primary Care Provider +1- [phone] Encounter Details Date Type Department Care Team (Latest Contact Info) Description 08/24/2018 Abstract [facility] Medical Group Abundio Steinberg MD Social [...] on filedocumented in this encounter Care Teams Railway Yard Assistant Relationship Specialty Start Date End Date Soha Briceno MD [address] [facility] [address] [place] [address] PCP - General FAMILY PRACTICE 07/29/18 documented as of this encounter
--- OUTSIDE RECORDS SUMMARY | 2025-06-10 07:43 | XMS_ITS | Clinical Summary ---
Author Organization [facility] Address [address] [place] [address] Care Team Providers Care Game Engineer Name Role Phone Soha Briceno MD Primary Care Provider +1- [phone] Allergies Active Allergy Reactions Criticality Noted Date [...] Active gabapentin 100 MG capsuleIndications: Drug-induced polyneuropathy ([facility]/HCC) 200 mg nightly. 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 Immunosuppression ([facility]) 07/19/2015 Peripheral nerve disease 05/03/2015 Autoimmune hepatitis ([facility]) 5 History of liver transplant ([facility]) Overview (08/24/2018): Last Assessment & Plan: OLT 02/22/14 2^ to ETOH ERCP done 03/03 stent placed Redmitted with Increased LFTs Liver biopsy: no rejection Bilirubin & Alk Phos still elevated most likely cholestasis Dc home today Cirrhosis of liver ([facility]) 02/22/2014 Hepatic encephalopathy ([facility]) 014 Overview (11/29/2018): Last Assessment & Plan: [...] / day. - Avoid diarrhea Alcoholic cirrhosis ([facility]) 03/15/2013 Hypothyroidism 06/14/2012 Overview (08/24/2018): Last Assessment [...] - Oxygen Saturation 100% 11/29/2018 10:54 AM MORTGAGE LENDER Inhaled Oxygen Concentration - - Weight 85.7 kg (189 lb) 02/07/2019 10:03 AM CDT Height 167.6 cm (5' 6) 02/07/2019 10:03 AM CDT Body Mass Index [...] age to complete this topic Insurance [facility] Care Teams Game Engineer Relationship Specialty Start Date End Date Soha Briceno MD [address] [facility] [address] [place] [address] PCP - General FAMILY PRACTICE 07/29/18
[2025-06-10 08:26] LABS: Hematocrit 40.0 % (37.0-47.0); Hemoglobin 13.2 g/dL (12.0-15.0); Immature Granulocyte Percent A 0.2 % (0-0.5); Lymphocytes Absolute Auto 1.46 K/mm3 (0.9-3.2); Mean Corpuscular HGB Conc 33.0 g/dl (32-36); Mean Corpuscular Hemoglobin 30.4 pg (26-34); Mean Corpuscular Volume 92.2 fl (80-100); Nucleated Red Blood Cells Absolute Auto 0.000 K/mm3 (0.0-0.012); Nucleated Red Blood Cells Perc 0.0 % (0.0-0.2); Platelet Count Result 215 k/mm3 (150-375); Red Blood Count 4.34 M/mm3 (4.2-5.4); White Blood Count 4.1 K/mm3 (4.5-10.0)
[2025-06-10 08:57] LABS: Alanine Aminotransferase 18 U/L (6-35); Albumin Level 4.0 g/dL (3.5-5.1); Alkaline Phosphatase 67 U/L (38-126); Anion Gap 7 mmol/L (4-12); Aspartate Amino Transferase 27 U/L (14-36); Bilirubin,Total 0.5 mg/dL (0.2-1.3); Blood Urea Nitrogen 16 mg/dL (7-17); Calcium 9.4 mg/dL (8.4-10.2); Carbon Dioxide 27 mmol/L (22-30); Chloride 103 mmol/L (98-107); Estimated Glomerular Filt Rate > 60; Glucose 103 mg/dL (65-110); Potassium 4.1 mmol/L (3.4-5.0); Sodium 137 mmol/L (137-145); Total Protein 6.5 g/dL (6.3-8.2)
[2025-06-12 08:07] LABS: GGT 10 IU/L (0-60)
[2025-06-12 18:08] LABS: Tacrolimus (FK506), Blood 3.7 ng/mL (5.0-20.0)
== END 2025-06-10 07:35 | disposition home or self-care (01) ==
PROVIDERS: PCP Family Medicine; Visit Provider Internal Medicine Gastroenterology
DX: Z94.4 Liver transplant status (principal); Z79.899 Other long term (current) drug therapy
CPT/HCPCS: 36415; 80053; 80197; 82977; 85025

== ENCOUNTER 2025-09-09 05:07 | Inpatient (IN) | payer MEDICARE, SELFPAY ==
--- OUTSIDE RECORDS SUMMARY | 2014-08-02 03:30 | XMS_ITS | Continuity of Care Document ---
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 [address], [id number]. tel:[phone] Referring Provider: Osvaldo Bardales, [address] [place] [address], [id number]. tel:[phone] [facility], [address] [place] [address], [id number], [place] tel:[phone] [facility] No Information [facility]. [address], [id number]. tel:[phone] Referring Provider: Osvaldo Bardales, [address] [place] [address] [address], [place], [address]. tel:[phone] Family History Family Member Type Diagnosis Age At Onset No Information Payers Payer name Insurance type Covered republican ID Authoriza tion(s) [facility] PPO BL [id number] Social History Type Description Quantity Date Captured Comments Sex Female Smoking Status No Information Chief Complaint And Reason For Visit No Information Reason For Referral Reason For Referral No Information History Of Present Illness Encounter Date Complaint History Of Prese nt Illness No Information Functional Status Date Functional Assessmen t No Information Instructions Date Instruction Additional Infor mation No Information Assessments Type Assessment Date No Information Patient Care Teams Name Effective Dates (start - stop) Status Members No Information
--- OUTSIDE RECORDS SUMMARY | 2017-09-04 03:20 | XMS_ITS | Continuity of Care Document ---
Author Organization 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 Role Phone Davie BUNCH, Abdi Unavailable Unavailable Allergies, Adverse Reactions, Alerts Substance Reaction Status Criticality Penicillins Active No Information Medications Medication Instructions Dosage Effective Dates (start - stop) Status Comments CLEOCIN HCL (unknown strength) Not Available - Active SYNTHROID (unknown strength) Not Available - Active CELLCEPT (unknown strength) Not Available - Active PROGRAF (unknown strength) Not Available - Active MAGNESIUM-VITAMIN D3-TURMERIC (unknown strength) Not Available - Active PRILOSEC (unknown strength) Not Available - Active Procedures Procedure Date Established Comprehensive Exam 17 EYE EXAM & TREATMENT Doc meds verified w/pt or re TOBACCO NON-USER EYE EXAM & TREATMENT POSTOP FOLLOW-UP VISIT POSTOP FOLLOW-UP VISIT CATARACT SURG W/IOL, 1 STAGE Astigmatism-correct function POSTOP FOLLOW-UP VISIT A-SCAN Jul- POSTOP FOLLOW-UP VISIT CATARACT SURG W/IOL, 1 STAGE Astigmatism-correct function CORNEAL TOPOGRAPHY/PENTACAM EYE EXAM, NEW PATIENT OCT Retina [facility] Advance Directives Directive Yes / No Effective Date File Name No Information Encounters Encounter Description Practice Location Reason(s) For Visit Diagnoses Date Provider Providers Copied on Encounter [facility], [address] [place] [address] [address], [place], [place], [id number] , [place] tel: [phone] [facility] Open angle with borderline findings, PCO (chief complaint) Other secondary cataract, bilateralOpen angle with borderline findings, low risk, bilateralPresence of intraocular lens 7 Broderick Abdi. 1000 [facility], [address], [place], [address]. tel: [phone] [facility], [address] [facility] [address], [place], [id number] , [place] tel: [phone] [facility] 1 year f/u (chief complaint) Other secondary cataract, bilateralPresence of intraocular lensOpen angle with borderline findings, low risk, bilateral 6 Broderick Abdi. 1000 [facility], [address], [place], [address]. tel: [phone] [facility], [address], [id number] , [place] tel: [phone] [facility] Pseudophakia OU (chief complaint) Other secondary cataract, bilateralPresence of intraocular lens Oct-2 3- 5 Broderick Abdi. 1000 [facility], [address], [place], [address]. tel: [phone] [facility], [address] [place] [address], [id number] , [place] tel: [phone] [facility] No Information Oct-2 3-201 4 Liseth Osvaldo. 1000 [facility], [address], [place], [place], [id number] . tel: [phone] [facility], [address] [facility] [address], [place], [id number] , [place] tel:[phone] [facility] No Information Oct-2 3-201 4 Broderick Abdi. 1000 [facility], [address], [place], [address]. tel: [phone] [facility], [address] [place] [address] [address], [place], [place], [id number] , [place] tel: [phone] [facility] No Information Oct-1 6-201 4 Broderick Abdi. 1000 [facility], [address], [place], [address]. tel: [phone] [facility], [address] [facility] [address], [place], [place], [id number] , [place] tel: [phone] [facility] No Information Oct-1 5-201 4 Liseth Osvaldo. 1000 [facility], [address], [place], [place], [id number] . tel:[phone] [facility], [address] [facility] [address], [place], [id number] , [place] tel:[phone] [facility] No Information Oct-0 9-201 4 Liseth Osvaldo. 1000 [facility] [address], [place], [place], [id number] . tel: [phone] [facility], [address] [place] [address], [place], [id number] , [place] tel: [phone] [facility] No Information Oct-0 2-201 4 Broderick Abdi. 1000 [facility], [address], [place], [address]. tel: [phone] [facility], [address] [place] [address], [place], [id number] , [place] tel: [phone] [facility] No Information Oct-0 1-201 4 Liseth Osvaldo. 1000 [facility] [address], [place], [place], [id number] . tel: [phone] [facility], [address] [facility] [address], [place], [id number] , [place] tel: [phone] [facility] No Information Sep-2 2-201 4 Liseth Osvaldo. 1000 [facility], [address], [place], [place], [id number] . tel: [phone] [facility], [address], [place], [place], [id number] , tel: [phone] [facility] No Information 4 Liseth Riley. 1000 [facility], [address], [place], [place], [id number] . tel: [phone] Family History Family Member Type Diagnosis Age At Onset Problem (finding) Family history of Retin al disease Problem (finding) Family history of catar act Problem (finding) Family history of Diabe dahiana mellitus Payers Payer name Insurance type Covered alliance party ID Authoriza tion(s) Medicare Part B [id number] [facility] [id number] Social History Type Description Quantity Date Captured Comments Alcohol Use Details No Caffeine Use Details Unknown Tobacco Use Status Never smoked tobacco 2016 Smoking Status Never smoker Non-Smoking Tobacco Use Details : No Details Available : No Details Available Sex Female Chief Complaint And Reason For Visit From encounter dated '2017 09:20'. Open angle with borderline findings, PCO (chief complaint). Description: Patient presents for annual exam for open angle with borderline findings and PCO OU. She is not currently using any prescription gtts. She has not noticed any significant changes in VA since last visit and notes that it is doing very well. She has no pain or discomfort OU. Reason For Referral Reason For Referral No Information History Of Present Illness Encounter Date Complaint History Of Prese nt Illness Open angle with bord haroon findings, PCO Patient presents for annual exam for open angle with borderline findings and PCO OU. She is not currently using any prescription gtts. She has not noticed any significant changes in VA since last visit and notes that it is doing very well. She has no pain or discomfort OU. 1 year f/u Pt presents for 1 year f/u hx Pseudophakia OU. Pt reports noticing more glare coming off of the buildings, and now that she is more mobile she notices this more. Pt reports that vision is good at distance OU. Reading is good as well, can read without OTC readers most of the time. Denies discomfort or irritation OU. PT is using Blink Gel PRN OU Pseudophakia OU f/u PCIOL OD 07/19/14, OS 08/02/14 - Patient feels vision is stable OU Distance vision very good. Wears otc readers +2.50 for small print. Does have some dryness, but uses AT's as needed.Patient states she was on prednisone from October 2014 thru May 2015 with no vision changes noted.Liver transplant February 2014. Enzymes were varying earlier this year so her doses of pred were higher for a while. Functional Status Date Functional Assessmen t No Information Instructions Date Instruction Additional Infor colton Follow up - pt is mo ving and will not be coming back to [facility] Impression/Plan Related to Prese nce of intraocular lens Impression/Plan - Observe. Relat ed to Open angle with borderline findings, low risk, bilateral Impression/Plan - Mo nitor for worsening PCO symptoms.She has relocated to [facility] and will be finding a new eyecare provider down there. Related to Other secondary cataract, bilateral Return in 1 years wi th TLF for Refraction , Dilated Exam , Complete Exam. Related to Other secondary cataract, bilateral Impression/Plan Related to Prese nce of intraocular lens Impression/Plan - Mo nitor for worsening PCO symptoms. Related to Other secondary cataract, bilateral Follow up - Return i n 1 years with TLF for Refraction , Dilated Exam , Complete Exam. Related to Other secondary cataract, bilateral Follow up - 09/04/17 @ 9:20 TLF Impression/Plan - Observe. Relat ed to Open angle with borderline findings, low risk, bilateral Return in 1 year wit h TLF for Dilated Exam , Refraction , IOP check. Related to Other secondary cataract, bilateral Follow up - 08/11/16 @ 100 with TLF Follow up - Return i n 1 year with TLF for Dilated Exam , Refraction , IOP check. Related to Other secondary cataract, bilateral Impression/Plan Related to Prese nce of intraocular lens Impression/Plan - Mo nitor for vision changes. Related to Other secondary cataract, bilateral Assessments Type Assessment Date assessment Other secondary cataract, bilate ral impression Other secondary errol ract, bilateral: H26.493. - stable, minimal without significant complaints impression Open angle with bord haroon findings, low risk, bilateral: H40.013. - stable IOP and optic nerve appearance assessment Open angle with borderline findi ngs, low risk, bilateral impression Presence of intraocular lens: Z9 6.1. - stable assessment Presence of intraocular lens Aug Patient Care Teams Name Effective Dates (start - stop) Status Members No Information
--- NOTE | ~2025-09-09 | XR_ITS ---
EXAMINATION: XR hip LT 1V, 09/10/2025 15:50 INDUSTRIAL REHABILITATION CONSULTANT HISTORY: POST OP COMPARISON: No comparisons available. Findings: No acute fracture or malalignment. Arthroplasty is intact. Soft tissues unremarkable. Impression: No acute fracture or malalignment. Reviewed, dictated and finalized at location P. STRIAL REHABILITATION CONSULTANT Impression: No acute fracture or malalignment.
--- NOTE | ~2025-09-09 | XR_ITS ---
Examination: XR hip LT 2V w AP pelvis Clinical History: fall, poss dislocation Comparison: None Technique: AP pelvis, 2 views left hip Findings/impression: 1. Left femoral neck fracture. 2. No pelvic fracture identified. Reviewed, dictated and finalized at location R. ER WORKER
--- NOTE | ~2025-09-09 | XR_ITS ---
Examination: XR chest 1V Clinical History: FALL Comparison: 07/09/2022 Technique: Portable AP Findings: Heart size normal. Lungs clear. No acute bony abnormality. IMPRESSION: 1. No acute cardiopulmonary findings given portable technique. Reviewed, dictated and finalized at location R. CUTTER
[2025-09-09 05:10] VITALS: BP 152/90; PULSE 88; RESP 18; TEMP 36.5; O2SAT 98
[2025-09-09] MEDS: fentaNYL CITRATE INJ (*CRX) 100 MCG/2 ML VIAL IV PUSH (05:32)
--- NOTE | 2025-09-09 05:32 | ED.LOWEXIN ---
HPI - Extremity Injury (Lower) General Chief Complaint: Extremity Injury, Lower Stated Complaint: fall, hip pain Time Seen by Provider: 09/09/25 05:16 History of Present Illness HPI Narrative: 65-year-old female presenting to the emergency department after mechanical fall wall letting her dogs outside. Patient has a history of autoimmune hepatitis status post transplant over a decade ago. On chronic anti rejection meds. Has a history of hypothyroidism and GERD. Patient presents to the emergency department today after she was pulled by her dog and fell over landing onto her left hip. She was having significant pain and called EMS for assistance. Was not able to fully extend her hip but has good range of motion at the knee and ankle. She states she has chronic sensation loss in her bilateral lower extremities secondary to the medication she takes daily but nothing new. No new paresthesias or weakness. She is holding her leg in a flexed externally rotated position. Received fentanyl EN route by EMS. Was otherwise in her normal state of health. No head trauma denies any other injuries. No pain anywhere else besides her left proximal femur/ hip region. Denies any blood thinner use or aspirin. Related Data Home Medications ?Medication ?Instructions ?Recorded ?Confirmed ?Last Taken ?Type mycophenolate mofetil 500 mg tablet 500 mg PO BID 11/28/19 03/03/25 Unknown History multivitamin 1 tablet PO DAILY 02/28/21 03/03/25 Unknown History omeprazole 20 mg capsule,delayed 20 mg PO DAILY 05/15/22 03/03/25 Unknown History release tacrolimus 0.5 mg capsule, 2.5 mg PO DAILY 05/15/22 03/03/25 Unknown History immediate-release calcium 300 mg-vit D3 200 1 tablet PO DAILY 04/07/23 03/03/25 Unknown History hnqa-smhjhmcg-dvbfwqwjv 13.5 mg tablet (Citracal Plus Bone Density Builder) cholecalciferol (vitamin D3) 25 25 mcg PO DAILY 04/07/23 03/03/25 Unknown History mcg (1,000 unit) capsule Allergies Allergy/AdvReac Type Severity Reaction Status Date / Time erythromycin base Allergy Unknown Unknown Verified 09/09/25 05:18 Penicillins Allergy Unknown Unknown Verified 09/09/25 05:18 Review of Systems Review of Systems: As reviewed above in HPI All systems reviewed & are unremarkable except as noted in HPI and below [facility] Past Medical History Medical History Colon cancer screening Personal history of immunosupression therapy Peripheral neuropathy due to chemotherapy Neuropathy in liver disease Menopause Hypothyroidism (acquired) History of abnormal cervical Pap smear Hepatitis, autoimmune Encounter for gynecological examination (general) (routine) without abnormal findings Dietary counseling and surveillance (08/27/17) Closed nondisplaced fracture of fifth metatarsal bone of left foot Body mass index [BMI] 30.0-30.9, adult (09/17/17) Autonomic neuropathy in diseases classified elsewhere Adverse effect of antineoplastic and immunosuppressive drugs, sequela Abscess of axilla, left History of cirrhosis Hypothyroidism GERD (gastroesophageal reflux disease) Arthritis Surgical History Surgical History Hx of liver transplant History of umbilical hernia repair H/O tubal ligation Liver transplant recipient Family History Family History Other Diabetes mellitus Family history of malignant neoplasm of breast Family history of type 1 diabetes mellitus Social History Social History Social History: Single Smoking status: Never smoker Second hand tobacco smoke exposure: No Alcohol intake: never Substance use: never Substance use type: does not use Lack of Transportation: No Lack of Food: Never True Current Housing: I Have Housing Concerned About Future Housing: No Difficulty Paying Gas/Electric Bills: No Difficulty Paying for Meds: No Currently Unemployed: YES Education: Decline to Answer Difficulty w/ Childcare or Family Care: No Living arrangements: with family Occupation/Education: unemployed Additional occupation/education comments: Disability Gender identity (if verbalized by the patient): Female Sexual Orientation (if Verbalized by the Patient): Straight or Heterosexual Spiritual care concerns: No Exam Narrative: GENERAL: [Well-appearing, well-nourished, and in no acute distress.] HEAD: [Normocephalic, atraumatic.] EYES: [PERRLA and EOMI.] ENT: Nares clear, no rhinorrhea or epistaxis. Mucous membranes moist. NECK: Supple. CHEST: [Clear to auscultation. No respiratory distress.] HEART: [Regular rate and rhythm]. No murmur heard. [Normal peripheral pulses.] ABDOMEN: [Soft, nondistended], [nontender], [No rigidity or guarding] EXTREMITIES: Externally rotated and flexed hip. Full range of motion at the knee and ankle. 2+ dorsalis pedis pulse and warm extremity. Able to wiggle the toes. Tenderness around the left proximal hip and femur region. No other injuries on the other extremities or spine. SKIN: Warm, dry, no rash. NEURO: [No focal deficits]. Alert and oriented [x3.] PSYCH: [Normal mood and affect.] Course Vital Signs Vital signs: Vital Signs Temperature 36.5 C 09/09/25 05:10 Pulse Rate 88 09/09/25 05:10 Respiratory Rate 18 09/09/25 05:10 Blood Pressure 152/90 H 09/09/25 05:10 Pulse Oximetry 98 09/09/25 05:10 Oxygen Delivery Room Air 09/09/25 05:10 Temperature 36.5 C 09/09/25 05:10 Pulse Rate 88 09/09/25 05:10 Respiratory Rate 18 09/09/25 05:10 Blood Pressure 152/90 H 09/09/25 05:10 Pulse Oximetry 98 09/09/25 05:10 Oxygen Delivery Room Air 09/09/25 05:10 MDM - Extremity Injury (Lower) MDM Narrative Medical decision making narrative: 65-year-old female presenting to the emergency department after mechanical fall wall letting her dogs outside. Patient has a history of autoimmune hepatitis status post transplant over a decade ago. On chronic anti rejection meds. Has a history of hypothyroidism and GERD. Patient presents to the emergency department today after she was pulled by her dog and fell over landing onto her left hip. She was having significant pain and called EMS for assistance. Was not able to fully extend her hip but has good range of motion at the knee and ankle. She states she has chronic sensation loss in her bilateral lower extremities secondary to the medication she takes daily but nothing new. No new paresthesias or weakness. She is holding her leg in a flexed externally rotated position. Received fentanyl EN route by EMS. Was otherwise in her normal state of health. No head trauma denies any other injuries. No pain anywhere else besides her left proximal femur/ hip region. Denies any blood thinner use or aspirin. Externally rotated and flexed hip. Full range of motion at the knee and ankle. 2+ dorsalis pedis pulse and warm extremity. Able to wiggle the toes. Tenderness around the left proximal hip and femur region. No other injuries on the other extremities or spine. Hemodynamically stable and neurovascularly intact. Suspect posterior hip dislocation versus fracture of the femur/ hip. Patient given fentanyl and x-rays were obtained. Laboratory studies ordered an IV established. X-ray independently reviewed interpreted by radiology. Patient has a minimally displaced femoral neck fracture. Consistent with her exam findings. Patient re-evaluated and pain is under control at this time. Grijalva catheter inserted secondary to new immobility. Discussed the case with orthopedics over the phone Dr. Davila. Patient can eat as she won't be made NPO today secondary to full surgical schedule but he is recommending admitting to the hospitalist for surgical procedure sometime this weekend. Laboratory studies reviewed and unremarkable. Awaiting discussion with hospitalist. Spoke to the hospitalist who accepted the patient to the hospital at this time. I did give the patient multimodal pain medication regimen including additional Robaxin and Tylenol in addition to her fentanyl. Scheduled pain medicines ordered. Her partner is bringing in her anti rejection medications so we can have them for her during her hospital stay. Patient's questions were answered and her pain is controlled at this time. Medical Records Attestation: I reviewed the patient's medical records. Lab Data Attestation: I reviewed the patient's lab results. 09/09/25 05:42 09/09/25 05:42 Labs: Lab Results 09/09/25 Range/Units 05:42 WBC 6.4 (4.5-10.0) K/mm3 RBC 4.39 (4.2-5.4) M/mm3 Hgb 13.3 (12.0-15.0) g/dL Hct 40.9 (37.0-47.0) % MCV 93.2 (80-100) fl MCH 30.3 (26-34) pg MCHC 32.5 (32-36) g/dl RDW 12.6 (11.5-14.5) % Plt Count 198 (150-375) k/mm3 MPV 9.3 (7.4-10.4) fl Immature Gran % (Auto) 0.5 (0-0.5) % Neut % (Auto) 80.1 H (45.5-73.1) % Lymph % (Auto) 14.0 L (18.3-44.2) % [place] % (Auto) 4.5 (2.6-8.5) % Eos % (Auto) 0.6 (0-4.4) % Baso % (Auto) 0.3 (0.2-1.2) % Lymph # (Auto) 0.90 (0.9-3.2) K/mm3 [place] # (Auto) 0.3 (0.1-0.6) K/mm3 Eos # (Auto) 0.0 (0-0.3) K/mm3 Baso # (Auto) 0.0 (0.0-0.1) K/mm3 Abs Immat Gran (auto) 0.03 (0.00-0.031) K/mm3 Absolute Neuts (auto) 5.1 (1.3-6.7) K/mm3 Absolute Nucleated RBC 0.000 (0.0-0.012) K/mm3 Nucleated RBC % 0.0 (0.0-0.2) % PT 13.0 (11.1-14.7) Seconds INR 1.0 APTT 31.8 (22.3-36.8) Seconds Sodium 136 L (137-145) mmol/L Potassium 4.0 (3.4-5.0) mmol/L Chloride 105 (98-107) mmol/L Carbon Dioxide 27 (22-30) mmol/L Anion Gap 4 (4-12) mmol/L BUN 13 (7-17) mg/dL Creatinine 0.86 (0.7-1.0) mg/dL Estim Creat Clear Calc Not Reportable Estimated GFR > 60 (59 - ) Glucose 128 H (65-110) mg/dL Calcium 9.0 (8.4-10.2) mg/dL Blood Type O Negative Antibody Screen Negative Imaging Data Attestation: I personally reviewed and interpreted this imaging study as follows: My impression: Femoral neck fracture, displaced Discharge Plan Discharge Clinical Impression: Fracture of femoral neck, left, Liver transplant recipient Patient Disposition: Still a Patient Condition: Stable Patient Language: Ukrainian Prescriptions: No Action mycophenolate mofetil 500 mg tablet 500 mg PO BID multivitamin Tablet 1 tablet PO DAILY tacrolimus 0.5 mg capsule 2.5 mg PO DAILY omeprazole 20 mg capsule,delayed release(DR/EC) 20 mg PO DAILY cholecalciferol (vitamin D3) 25 mcg (1,000 unit) capsule 25 mcg PO DAILY Citracal Plus Bone Density 300-200-13.5 mg-unit-mg tablet 1 tablet PO DAILY levothyroxine 125 mcg tablet See Rx Instructions .ROUTE .COMPLEX Qty: 90 1RF Dose Instruction: TAKE 1 TABLET BY MOUTH DAILY Rx Instructions: TAKE 1 TABLET BY MOUTH DAILY Follow-up/Referrals: Oswald Cuellar MD [Primary Care Provider, Family Practice] Time of Disposition: 06:40
[2025-09-09 05:52] LABS: Hematocrit 40.9 % (37.0-47.0); Hemoglobin 13.3 g/dL (12.0-15.0); Immature Granulocyte Percent A 0.5 % (0-0.5); Lymphocytes Absolute Auto 0.90 K/mm3 (0.9-3.2); Mean Corpuscular HGB Conc 32.5 g/dl (32-36); Mean Corpuscular Hemoglobin 30.3 pg (26-34); Mean Corpuscular Volume 93.2 fl (80-100); Nucleated Red Blood Cells Absolute Auto 0.000 K/mm3 (0.0-0.012); Nucleated Red Blood Cells Perc 0.0 % (0.0-0.2); Platelet Count Result 198 k/mm3 (150-375); Red Blood Count 4.39 M/mm3 (4.2-5.4); White Blood Count 6.4 K/mm3 (4.5-10.0)
[2025-09-09 06:01] LABS: Anion Gap 4 mmol/L (4-12); Blood Urea Nitrogen 13 mg/dL (7-17); Calcium 9.0 mg/dL (8.4-10.2); Carbon Dioxide 27 mmol/L (22-30); Chloride 105 mmol/L (98-107); Estimated Glomerular Filt Rate > 60; Glucose 128 mg/dL (65-110); Potassium 4.0 mmol/L (3.4-5.0); Sodium 136 mmol/L (137-145)
--- OUTSIDE RECORDS SUMMARY | 2025-09-09 06:02 | XMS_ITS ---
Author Organization [facility] Address [address] [place] [address] Care Team Providers Care Supervisor Sound Technician Name Role Phone Soha Briceno MD Primary Care Provider Marialuisa Cm RN Unavailable [phone] Transplant Episode Liver Recipient [facility] ([place], [place]) [facility] Transplanted on 02/22/2014 Marked as Active Follow-up on 02/22/2014 Reason: Transplanted at Outside Center Liver CoordinatorMarialuisa Cm RN Fax: N/A Email: N/A Transplanted Elsewhere: [facility] ([place], [place]) - [facility] Coordinator: Phone: Fax: [place] Organ Diagnosis Organ Primary Contributory Liver Alcoholic Cirrhosis Care Team Name Role Phone Fax Email Marialuisa Cm RN Liver Coordinator [phone] N/A N/A Gilma Longo Primary Supervisor Braiding N/A N/A N/A Livia Adkins Field Representative [phone] N/A N/A Soha Briceno MD Referring Physician [phone] N/A Events Post-Transplant Pre-Transplant Transplanted: 02/22/2014 Referred: 04/12/2019
--- OUTSIDE RECORDS SUMMARY | 2025-09-09 06:03 | XMS_ITS | Encounter Summary ---
Author Organization [facility] Address [address] [place] [address] Care Team Providers Care Stove Carriage Operator Name Role Phone Soha Briceno MD Primary Care Provider [phone]- [phone] Encounter Details Date Type Department Care Team (Latest Contact Info) Description 08/24/2018 Abstract [facility] Medical Group Abundio Steinberg MD Social History [...] on filedocumented in this encounter Care Teams Stove Carriage Operator Relationship Specialty Start Date End Date Soha Briceno MD [address] [facility] [address] [place] [address] PCP - General FAMILY PRACTICE 07/29/18 documented as of this encounter
--- OUTSIDE RECORDS SUMMARY | 2025-09-09 06:03 | XMS_ITS | Clinical Summary ---
Author Organization [facility] Address [address] [place] [address] Care Team Providers Care Pet Care Assistant Name Role Phone Soha Briceno MD Primary Care Provider Marialuisa Cm RN Unavailable [phone] Allergies Active Allergy Reactions Criticality Noted Date Comments Misc Antifungal Combo Products Other (See comments) Low 07/09/2022 Transplant patient- oral antifungals Penicillins Itching,Rash Medium 06/14/2012 Medications calcium carb/vit D3/minerals (CALCIUM-VITAM IN D ORAL) Take by mouth daily Caltrate- calcium 600 mg +D 800 international units Active levothyroxine (SYNTHROID) 125 mcg tablet c 13 catapult operator before breakfast 9 Active omeprazole (PriLOSEC) 20 [...] (1,000 Units total) by mouth daily Active mycophenolate mofetil (CELLCEPT) 500 mg tablet TAKE 1 TABLET(500 MG) BY MOUTH TWICE DAILY 180 tablet 3 5 Active tacrolimus 0.5 mg immediate-rele ase capsule TAKE 3 CAPSULES BY MOUTH EVERY MORNING AND 2 CAPSULES EVERY EVENING 150 capsule 11 5 Active Active Problems Patient Care Coordination No te Formatting of this note migh t be different from the original. Labs: [facility]: fax [phone] Problem Noted Date Diagnosed Date History of liver transplant 11/16/2019 Assessment & Plan (11/16/2019 6:30 PM AUTO CLAIM REPRESENTATIVE): Liver transplant approximately 5.6 years ago with excellent allograft function. I saw no reason change her current medications. She will continue to have labs on a quarterly basis. We will send standing orders to the local lab. She can be seen in follow-up every other year or sooner as clinically indicated. Peripheral neuropathy 11/16/2019 Autoimmune hepatitis 03/19/2015 Assessment & Plan (11/16/2019 6:31 PM AUTO CLAIM REPRESENTATIVE): In remission on current immunosuppressive therapy. The [...] Encounters Date Type Department Care Team Description 07/10/2025 Orders Only [facility] Transplant Liver [address] [facility] [address] [id number] [place] [address] Marialuisa Cm RN from Last 3 Months Immunizations Immunization Administration [...] Comments Blood Pressure 148/92 10/21/2023 7:42 AM AUTO CLAIM REPRESENTATIVE Pulse 79 10/21/2023 7:42 AM AUTO CLAIM REPRESENTATIVE Temperature 36.6 C (97.9 F) 10/21/2023 7:42 AM AUTO CLAIM REPRESENTATIVE Respiratory Rate - - Oxygen Saturation - - Inhaled Oxygen Concentration - - Weight 84.2 kg (185 lb 9.6 oz) 10/21/2023 7:42 A M AUTO CLAIM REPRESENTATIVE Height 165.1 cm (5' 5) 10/21/2023 7:42 AM AUTO CLAIM REPRESENTATIVE Body Mass Index 30.89 10/21/2023 7:42 AM AUTO CLAIM REPRESENTATIVE Plan of Treatment Health Maintenance Due Date Last Done Comments Cervical Cancer Screening 1962 Colon Cancer Screening-Colonoscopy 1962 Depression Screening 1962 Hepatitis C Screening 1962 Hepatitis B Screening 1980 Regular Well Visit/Exam 18-64 1980 Pneumococcal vaccine <65 (2 of 2 - PCV) 05/27/2014 05/27/2013 Breast Cancer Screening-Mammogram 02/12/2018 02/12/2017, 01/30/2016, 10/11/2013 Covid-19 Vaccine (5 - 2024-2 6 season) 2025 02/03/2022, 06/07/2021, 10/30/2020, Additional history exists Influenza Vaccine (#1) 2025 9, 07/19/2018, 07/18/2018, Additional history exists DTaP/Tdap/Td Vaccine (2 - Td or Tdap) 10/20/2028 10/20/2018 Zoster Vaccine Completed 02/22/2019, 12/08/2018 Procedures Procedure Name Priority Date/Time Associated Diagnosis Comments COTININE, URINE Routine 06/10/2025 TACROLIMUS LEVEL, TROUGH Routine 06/10/2025 CBC WITH AUTO DIFFERENTIAL Routine 06/10/2025 COMPREHENSIVE METABOLIC PANEL Routine 06/10/2025 GAMMA GT Routine 06/10/2025 from Last 3 Months Results * (ABNORMAL) Tacrolimus level trough (06/10/2025) SCRIBED Tacrolimus, trough 3.7(A) 5 - 20 TXP NO LAB FOUND Blood 06/10/2025 Historical Provider LAB BLOOD ORDERABLES Edit ed Result - Final TXP NO LAB FOUND * (ABNORMAL) CBC with auto differential (06/10/2025) SCRIBED WBC 4.1(A) 4.5 - 10.0 K/cumm TXP NO LAB FOUND SCRIBED Hemoglobin 13.2 12.0 - 15.0 g/dL TXP NO LAB FOUND SCRIBED Hematocrit 40.0 37.0 - 47.0 % TXP NO LAB FOUND SCRIBED Platelets 215 150 - 375 K/cumm TXP NO LAB FOUND SCRIBED RBC 4.34 4.20 - 5.40 M/cumm TXP NO LAB FOUND SCRIBED Neutrophils 54.4 45.5 - 73.1 % TXP NO LAB FOUND SCRIBED Imm Granulocytes 0.2 0.0 - 0.5 % TXP NO LAB FOUND SCRIBED Lymphocytes 35.8 18.3 - 44.2 % TXP NO LAB FOUND SCRIBED Monocytes 6.6 2.6 - 8.5 % TXP NO LAB FOUND SCRIBED Eosinophils 2.5 0.0 - 4.4 % TXP NO LAB FOUND SCRIBED Basophils 0.5 0.2 - 1.2 % TXP NO LAB FOUND Blood 06/10/2025 Historical Provider LAB BLOOD ORDERABLES Edit ed Result - Final Performing Organization Address City/[facility]/ZIP Co de Phone Number TXP NO LAB FOUND * Cotinine, urine (06/10/2025) SCRIBED Cotinine, Urine Negative TXP NO LAB FOUND Urine 06/10/[address] [facility] Historical Provider LAB URINE ORDERABLES Edit ed Result - Final Performing Organization Address [facility]/ZIP Co de Phone Number TXP NO LAB FOUND * Gamma GT (06/10/2025) SCRIBED GGT 10 0 - 60 TXP NO L AB FOUND Blood 06/10/[address] [facility] Historical Provider LAB BLOOD ORDERABLES Edit ed Result - Final Performing Organization Address [facility] de Phone Number TXP NO LAB FOUND * Comprehensive metabolic panel (06/10/2025) SCRIBED Sodium 137 137 - 145 mmol/L TXP NO LAB FOUND SCRIBED Potassium 4.1 3.4 - 5 mmol/L TXP NO LAB FOUND SCRIBED Chloride 103 98 - 107 mmol/L TXP NO LAB FOUND SCRIBED Carbon Dioxide 27 22 - 30 mmol/L TXP NO LAB FOUND SCRIBED Urea Nitrogen (BUN) 16 7 - 17 mg/dl TXP NO LAB FOUND SCRIBED Creatinine 0.93 0.7 - 1 mg/dl TXP NO LAB FOUND SCRIBED Glucose 103 65 - 110 mg/dl TXP NO LAB FOUND SCRIBED Calcium 9.4 8.4 - 10.2 mg/dl TXP NO LAB FOUND SCRIBED Bilirubin 0.5 0.2 - 1.3 mg/dl TXP NO LAB FOUND SCRIBED Plasma Protein 6.5 6.3 - 8.2 g/dl TXP NO LAB FOUND SCRIBED Albumin 4 3.5 - 5.1 g/dl TXP NO LAB FOUND SCRIBED Alkaline Phosphatase 67 38 - 126 Units/L TXP NO LAB FOUND SCRIBED Alanine Transaminase (ALT) 18 6 - 35 Units/L TXP NO LAB FOUND SCRIBED Aspartate Transaminase (AST) 27 14 - 36 Units/L TXP NO LAB FOUND Blood 06/10/2025 Result [facility] Provider LAB BLOOD ORDERABLES Hilda l Result Performing Organization Address [facility]/ZIP Co de Phone Number TXP NO LAB FOUND from Last 3 Months Insurance [facility]ICARE [facility] Care Teams Pet Care Assistant Relationship Specialty Start Date End Date Soha Briceno MD [address] [facility] [address] [place] [id number] PCP - General Family Medicine 04/12/19 Marialuisa Cm, RN Eligibility Counselor Transplant 11/04/19
--- OUTSIDE RECORDS SUMMARY | 2025-09-09 06:03 | XMS_ITS | Clinical Summary ---
Author Organization [facility] Address [address] [place] [address] Care Team Providers Care Relays Draftsperson Name Role Phone Soha Briceno MD Primary Care Provider [phone] Allergies Active Allergy Reactions Criticality Noted Date [...] Active gabapentin 100 MG capsuleIndications: Drug-induced polyneuropathy (HHS/HCC) 200 mg nightly. 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 - Avoid diarrhea Alcoholic cirrhosis 03/15/2013 Hypothyroidism 06/14/2012 Overview (08/24/2018): Last Assessment [...] - Oxygen Saturation 100% 11/29/2018 10:54 AM STAVE BOLT EQUALIZER Inhaled Oxygen Concentration - - Weight 85.7 [...] and Td Vaccines (1 - Tdap) 1981 Hepatitis A Vaccines (1 of 2 - Risk 2-dose series) 1981 Zoster Vaccines (1 of 2) 1981 Cervical Cancer Screening Pap with HPV Testing (Age 30 to 64) Every 5 Years 1992 Cervical Cancer Screening with HPV 1992 Mammogram Screening 2002 Pneumococcal Vaccine: 50+ Years (2 of 2 - PCV) 05/27/2014 05/27/2013 RSV Immunization or 60+ Years (1 - Risk 60-74 years 1-dose series) 2022 Influenza Adult (#1) 2025 07/19/2018, 07/18/2018, 10/09/2015, Additional history exists Meningococcal B Vaccine Aged Out No l onger eligible based on patient's age to complete this topic Meningococcal Vaccine Aged Out No abiodun americo eligible based on patient's age to complete this topic RSV Immunizations Under 20 Months Aged Out No longer eligible based on patient's age to complete this topic [place] [address] MEDICARE [facility] Care Teams Relays Draftsperson Relationship Specialty Start Date End Date Soha Briceno MD [address] [facility] [address] [place] [address] PCP - General FAMILY PRACTICE 07/29/18
--- OUTSIDE RECORDS SUMMARY | 2025-09-09 06:03 | XMS_ITS | Encounter Summary ---
Author Organization [facility] Address [address] [place] [id number] Care Team Providers Care Rn Oncology Name Role Phone Soha Briceno MD Primary Care Provider [phone]- [phone] Encounter Details Date Type Department Care Team (Latest Contact Info) Description 06/11/2018 Abstract [facility] , Abundio Landeros [...] filedocumented in this encounter Care Teams Rn Oncology Relationship Specialty Start Date End Date Soha Briceno MD [address] [facility] [address] [place] [address] PCP - General FAMILY PRACTICE 07/29/18 documented as of this encounter
--- OUTSIDE RECORDS SUMMARY | 2025-09-09 06:03 | XMS_ITS | Encounter Summary ---
Author Organization [facility] Address [address] [place] [address] Care Team Providers Care Research Psychologist Name Role Phone Soha Briceno MD Primary Care Provider [phone]- [phone] Encounter Details Date Type Department Care Team (Latest Contact Info) Description 05/03/[address] [facility] , Abundio Landeros MD Social [...] on filedocumented in this encounter Care Teams Research Psychologist Relationship Specialty Start Date End Date oSha Briceno MD [address] [facility] [address] [place] [address] PCP - General FAMILY PRACTICE 07/29/18 documented as of this encounter
[2025-09-09 06:10] LABS: INR 1.0; Partial Thromboplastin Time 31.8 Seconds (22.3-36.8); Prothrombin Time 13.0 Seconds (11.1-14.7)
[2025-09-09] MEDS: ACETAMINOPHEN 500 MG TABLET 1000 MG PO (06:43)
[2025-09-09] MEDS: LIDOCAINE 5% PATCH 1 PATCH TRANSDERM (06:47)
[2025-09-09 07:14] VITALS: BP 141/72; PULSE 66; RESP 20; O2SAT 100
[2025-09-09 07:25] VITALS: TEMP 36.6
--- NOTE | 2025-09-09 07:29 | WPCEDHO ---
ED Hand Off Checklist All vitals saved:yes IV Site documented:yes All med administrations documented:yes Triage Note Triage Note ems brought in from home because 09/09/25 05:10 she tripped and fell while taking out dog. injuring left hip and leg. 75mcg fentanyl and 4mg zofran given per ems en route . Allergies erythromycin base Allergy (Unknown, Verified 09/09/25 05:18) Unknown Penicillins Allergy (Unknown, Verified 09/09/25 05:18) Unknown Family History (Last Reviewed 09/09/25 @ 05:33 by David Marc MD) Other Diabetes mellitus Family history of malignant neoplasm of breast Family history of type 1 diabetes mellitus Administered/Completed Medications Discontinued Medications Acetaminophen (Acetaminophen 500 Mg Tablet) 1,000 mg PO ONCE STA Stop: 09/09/25 06:36 Last Admin: 09/09/25 06:43 Dose: 1,000 mg Documented By: TERRENCE Fentanyl Citrate (Fentanyl Citrate Inj (*Crx) 100 Mcg/2 Ml Vial) 100 mcg IV PUSH ONCE STA Stop: 09/09/25 05:28 Last Admin: 09/09/25 05:32 Dose: 100 mcg Documented By: TERRENCE Lidocaine (Lidocaine 5% Patch) 1 patch TRANSDERM ONCE STA Stop: 09/09/25 06:36 Last Admin: 09/09/25 06:47 Dose: 1 patch Documented By: TERRENCE Methocarbamol (Methocarbamol 750 Mg Tablet) 1,500 mg PO ONCE ONE Stop: 09/09/25 06:36 Last Admin: 09/09/25 06:46 Dose: 1,500 mg Documented By: TERRENCE Interventions/Assessments IV / Saline Lock, Insert Start: 09/09/25 04:59 Freq: Status: Active Protocol: Document 09/09/25 05:21 TERRENCE (Rec: 09/09/25 05:22 TERRENCE [id number]) IV Assessment Left Antecubital IV Catheter Access Initiated Before Arrival IV Insertion Date 09/09/25 Catheter Gauge 18 IV Site Assessment WNL IV Care and WNL Maintenance Last Vital Signs Temperature 97.8 F 09/09/25 07:25 Pulse Rate 66 09/09/25 07:14 Respiratory Rate 20 09/09/25 07:14 Pulse Oximetry 100 09/09/25 07:14 Blood Pressure 141/72 H 09/09/25 07:14 Blood Pressure Mean 95 09/09/25 07:14 Oxygen Delivery Room Air 09/09/25 05:10 Weight 79.2 kg 09/09/25 07:24 Last Result - Abnormals Only Neut % (Auto) 80.1 % (45.5-73.1) H 09/09/25 05:42 Lymph % (Auto) 14.0 % (18.3-44.2) L 09/09/25 05:42 Sodium 136 mmol/L (137-145) L 09/09/25 05:42 Glucose 128 mg/dL (65-110) H 09/09/25 05:42 Most Recent Suicide Severity Rating Suicide Severity Rating NO RISK INDICATED 09/09/25 05:10
[2025-09-09 07:55] VITALS: BMI 28.1
--- NOTE | 2025-09-09 08:15 | PM.IMHP ---
H&P: HPI History of Present Illness Date/Time: 09/09/25 08:15 Chief Complaint: fall Narrative: 65-year-old female with PMH/o GERD, hypothyroidism, autoimmune hepatitis s/p transplant, on chronic anti rejection meds admitted after mechanical fall wall letting her dogs outside. She was pulled by her dog and fell over landing onto her left hip. She was having significant pain and called EMS. Was not able to fully extend her hip but has good range of motion at the knee and ankle. She states she has chronic sensation loss in her bilateral lower extremities secondary to the medication she takes daily but nothing new. No new paresthesias or weakness. She received fentanyl by EMS with relief in pain. She denies sick contact, dizziness/chest pain/sob, no head trauma denies any other injuries. No pain anywhere else besides her left proximal femur/ hip region. Denies any blood thinner use or aspirin. Ortho was consulted in ED. 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 Menopause Hypothyroidism (acquired) History of abnormal cervical Pap smear Hepatitis, autoimmune Encounter for gynecological examination (general) (routine) without abnormal findings Dietary counseling and surveillance (08/27/17) Closed nondisplaced fracture of fifth metatarsal bone of left foot Body mass index [BMI] 30.0-30.9, adult (09/17/17) Autonomic neuropathy in diseases classified elsewhere Adverse effect of antineoplastic and immunosuppressive drugs, sequela Abscess of axilla, left History of cirrhosis Hypothyroidism GERD (gastroesophageal reflux disease) Arthritis Surgical History Surgical History Hx of liver transplant History of umbilical hernia repair H/O tubal ligation Liver transplant recipient Family History Family History (Updated 09/09/25 @ 08:18 by Connie Nunez RN) Father Diabetes mellitus Other Diabetes mellitus Family history of type 1 diabetes mellitus Grandparent Family history of malignant neoplasm of breast Mother Atrial fibrillation Social History Social History Social History: Single Smoking status: Never smoker Second hand tobacco smoke exposure: No Alcohol intake: never Substance use: never Substance use type: does not use Lack of Transportation: No Lack of Food: Never True Current Housing: I Have Housing Concerned About Future Housing: No Difficulty Paying Gas/Electric Bills: No Difficulty Paying for Meds: No Currently Unemployed: No Education: Decline to Answer Difficulty w/ Childcare or Family Care: No Living arrangements: with family Occupation/Education: unemployed Additional occupation/education comments: Disability Gender identity (if verbalized by the patient): Female Sexual Orientation (if Verbalized by the Patient): Straight or Heterosexual Spiritual care concerns: No Meds Home Medications and Allergies Home Medications ?Medication ?Instructions ?Recorded ?Confirmed ?Type mycophenolate mofetil 500 mg tablet 500 mg PO BID 11/28/19 09/09/25 History multivitamin 1 tablet PO DAILY 02/28/21 09/09/25 History omeprazole 20 mg capsule,delayed 20 mg PO DAILY 05/15/22 09/09/25 History release tacrolimus 0.5 mg capsule, 2.5 mg PO Q12H 05/15/22 09/09/25 History immediate-release calcium 300 mg-vit D3 200 1 tablet PO DAILY 04/07/23 09/09/25 History isoi-lnreneky-aughhubtl 13.5 mg tablet (Citracal Plus Bone Density Builder) cholecalciferol (vitamin D3) 25 25 mcg PO DAILY 04/07/23 09/09/25 History mcg (1,000 unit) capsule levothyroxine 125 mcg tablet See Rx Instructions .Route 09/05/25 09/09/25 Rx .COMPLEX #90 tabs Allergies Allergy/AdvReac Type Severity Reaction Status Date / Time erythromycin base Allergy Unknown Unknown Verified 09/09/25 08:08 Penicillins Allergy Unknown Unknown Verified 09/09/25 08:08 Vital Signs Vital Signs - 24 hr 09/09/25 05:10 09/09/25 07:14 09/09/25 07:25 Temperature 97.7 F 97.8 F Pulse Rate 88 66 Respiratory Rate 18 20 Blood Pressure 152/90 H 141/72 H Pulse Oximetry 98 100 Oxygen Delivery Room Air Exam Const: General: comfortable Resp: Effort & Inspection: normal respiratory effort Auscultation: clear to auscultation bilaterally Cardio: Rate: regular rate Rhythm: regular rhythm GI: GI Palp: Yes Soft to palpation Auscultation: normal bowel sounds Urinary Catheter: Urinary Catheter: patent and draining Skin: General skin exam: normal color Neuro: Speech: normal speech Extrem: Other: Externally rotated and flexed Left hip. Full range of motion at the knee and ankle. 2+ dorsalis pedis pulse and warm extremity. Able to wiggle the toes, sensation intact. Tenderness around the left proximal hip and femur region. Psych: Mental Status: mental status grossly normal Affect: normal affect H&P: Results Labs Labs: Short CBC 09/09/25 Range/Units 05:42 WBC 6.4 (4.5-10.0) K/mm3 Hgb 13.3 (12.0-15.0) g/dL Hct 40.9 (37.0-47.0) % Plt Count 198 (150-375) k/mm3 BMP 09/09/25 05:42 Sodium 136 L Potassium 4.0 Chloride 105 Carbon Dioxide 27 BUN 13 Creatinine 0.86 Glucose 128 H Calcium 9.0 Assessment and Plan Assessment and plan (1) Hypothyroidism: Code(s): E03.9 - Hypothyroidism, unspecified Status: Acute (2) Low vitamin D level: Code(s): R79.89 - Other specified abnormal findings of blood chemistry Status: Acute (3) GERD (gastroesophageal reflux disease): Code(s): K21.9 - Gastro-esophageal reflux disease without esophagitis Status: Acute (4) Liver transplant recipient: Code(s): Z94.4 - Liver transplant status Status: Acute (5) Hepatitis, autoimmune: Code(s): K75.4 - Autoimmune hepatitis Status: Acute (6) Personal history of immunosupression therapy: Code(s): Z92.25 - Personal history of immunosuppression therapy Status: Acute (7) Fracture of femoral neck, left: Code(s): S72.002A - Fracture of unspecified part of neck of left femur, initial encounter for closed fracture Status: Acute Plan 65-year-old female with PMH/o GERD, hypothyroidism, autoimmune hepatitis s/p transplant, on chronic anti rejection meds admitted after mechanical fall wall letting her dogs outside. She was pulled by her dog and fell over landing onto her left hip. She was having significant pain and called EMS. Was not able to fully extend her hip but has good range of motion at the knee and ankle. She states she has chronic sensation loss in her bilateral lower extremities secondary to the medication she takes daily but nothing new. No new paresthesias or weakness. She received fentanyl by EMS with relief in pain. X-ray independently reviewed interpreted by radiology. Patient has a minimally displaced femoral neck fracture. Consistent with her exam findings. Grijalva catheter inserted in ED secondary to new immobility. Pain mngmnt: tylenol 650 mg q4h prn, norco 5/325- 2 tabs q4h prn, lidocaine patch, robaxin x 1 given in ed. Zofran os ordered for nausea. - Will continue to monitor vascular status - ok to have diet for now as no surgical interventions are planned for today - family will bring anti rejection meds to be continued during admission - continue home levothyroxine Pt is full code Quality VTE Prophylaxis VTE prophylaxis: pharmacologic ordered Hospitalist MIPS Advance Care Plan I have confirmed that the patient's Advanced Care Plan is present, code status is documented, or surrogate decision maker is listed in patient medical record.: Yes Medication Reconciliation I have utilized all available resources to obtain, update and review the patients current medications (includes all prescriptions, OTC, herbals, cannabis, and nutritional supplements).: Yes
--- NOTE | 2025-09-09 08:24 | ADMGEN ---
This patient, Maryana Emery, was admitted to 3 [facility] Surg Room 329-01. Patient/family oriented to hospital policies and general routines including ID bracelet, bed and alarms, visiting hours, pain management, procedures, bathroom and other care routines, personal items, smoking policy, room service/diet, and visiting hours. Information on how to activate the Rapid Response Team has been discussed. Patient/Family are encouraged to report perceived risks to care and to ask questions if they do not understand what they are told or what they should do. received report from eloisa.
[2025-09-09] MEDS: HYDROcodone/acetaminophen (*CRX) 5-325 MG TABLET 2 TAB PO ×2 (09:24→22:31)
[2025-09-09] MEDS: CHOLECALCIFEROL (VITAMIN D3) 25 MCG (1,000 UNITS) TABLET PO (09:26)
[2025-09-09] MEDS: MULTIVITAMINS THERAPEUTIC TAB (*BKC) 1 TABLET PO (09:26)
[2025-09-09] MEDS: PANTOPRAZOLE 40 MG TABLET PO (09:26)
[2025-09-09] MEDS: LEVOTHYROXINE SODIUM 125 MCG TABLET BY MOUTH (09:26)
[2025-09-09 14:00] VITALS: BP 129/64; PULSE 70; RESP 18; TEMP 36.5; O2SAT 100
[2025-09-09] MEDS: HYDROmorphone HCL INJ (*CRX) 1 MG/ML SYR 0.5 MG IV PUSH ×2 (14:40→19:43)
[2025-09-09] MEDS: TACROLIMUS 0.5 MG CAPSULE 1 MG PO (19:50)
[2025-09-09 20:40] VITALS: BP 140/66; PULSE 77; RESP 16; TEMP 36.8; O2SAT 93
[2025-09-10] VITALS (11 sets, daily range): BP systolic 133–160; BP diastolic 66–98; PULSE 69–93; RESP 12–18; TEMP 35.7–36.7; O2SAT 92–100
[2025-09-10] MEDS: HYDROmorphone HCL INJ (*CRX) 1 MG/ML SYR 0.5 MG IV PUSH (02:55)
[2025-09-10] MEDS: LEVOTHYROXINE SODIUM 125 MCG TABLET BY MOUTH (05:17)
[2025-09-10] MEDS: HYDROcodone/acetaminophen (*CRX) 5-325 MG TABLET 2 TAB PO (05:18)
--- NOTE | 2025-09-10 08:13 | PM.IMPN ---
Progress Note: A&P Assessment and Plan (1) Hypothyroidism: Code(s): E03.9 - Hypothyroidism, unspecified Status: Acute (2) Low vitamin D level: Code(s): R79.89 - Other specified abnormal findings of blood chemistry Status: Acute (3) Liver transplant recipient: Code(s): Z94.4 - Liver transplant status Status: Acute (4) Hepatitis, autoimmune: Code(s): K75.4 - Autoimmune hepatitis Status: Acute (5) Personal history of immunosupression therapy: Code(s): Z92.25 - Personal history of immunosuppression therapy Status: Acute (6) Fracture of femoral neck, left: Code(s): S72.002A - Fracture of unspecified part of neck of left femur, initial encounter for closed fracture Status: Acute Plan 65-year-old female with PMH/o GERD, hypothyroidism, autoimmune hepatitis s/p transplant, on chronic anti rejection meds admitted after mechanical fall wall letting her dogs outside. She was pulled by her dog and fell over landing onto her left hip. She was having significant pain and called EMS. Was not able to fully extend her hip but has good range of motion at the knee and ankle. She states she has chronic sensation loss in her bilateral lower extremities secondary to the medication she takes daily but nothing new. No new paresthesias or weakness. She received fentanyl by EMS with relief in pain. X-ray independently reviewed interpreted by radiology. Patient has a minimally displaced femoral neck fracture. Consistent with her exam findings. Grijalva catheter inserted in ED secondary to new immobility. Pain mngmnt: tylenol 650 mg q4h prn, norco 5/325- 2 tabs q4h prn, lidocaine patch, robaxin x 1 given in ed.Added Dilaudid for breakthrough pain Zofran os ordered for nausea. - Will continue to monitor vascular status NPO for a possible surgery today pain is a lot better controlled with Dilaudid prn - continue home meds Pt is full code Time Spent With Patient Time with patient: 25 - 35 minutes Subjective Date/time seen: 09/10/25 08:13 Interval history: 65-year-old female with PMH/o , hypothyroidism, autoimmune hepatitis s/p transplant, on chronic anti rejection meds admitted after mechanical fall wall letting her dogs outside. She was pulled by her dog and fell over landing onto her left hip. She was having significant pain and called EMS. Was not able to fully extend her hip but has good range of motion at the knee and ankle. She states she has chronic sensation loss in her bilateral lower extremities secondary to the medication she takes daily but nothing new. No new paresthesias or weakness. She received fentanyl by EMS with relief in pain. She denies sick contact, dizziness/chest pain/sob, no head trauma denies any other injuries. No pain anywhere else besides her left proximal femur/ hip region. Denies any blood thinner use or aspirin. Ortho was consulted in ED. 09/10 pt is NPO at midnight. ortho is following. Grijalva in place, pain is tolerable as long as she does not move. hopefully surgery today Review of Systems Review of Systems: All systems reviewed & are unremarkable except as noted in HPI and below Exam Resp: Effort & Inspection: normal respiratory effort Auscultation: clear to auscultation bilaterally Cardio: Rate: regular rate Rhythm: regular rhythm GI: Auscultation: normal bowel sounds Urinary Catheter: Urinary Catheter: patent and draining Skin: General skin exam: normal color Neuro: Speech: normal speech Extrem: Other: Externally rotated and flexed Left hip. Full range of motion at the knee and ankle. 2+ dorsalis pedis pulse and warm extremity. Able to wiggle the toes, sensation intact. Tenderness around the left proximal hip and femur region. Psych: Mental Status: mental status grossly normal Affect: normal affect Objective Data Vital Signs Vital Signs: Vital Signs - 24 hr 09/09/25 14:00 09/09/25 20:40 09/10/25 05:05 Temperature 97.7 F 98.2 F 98.0 F Pulse Rate 70 77 86 Respiratory Rate 18 16 16 Blood Pressure 129/64 140/66 144/71 H Pulse Oximetry 100 93 98 Intake/Output Intake/Output: Intake & Output 09/07/25 09/08/25 09/09/25 09/10/25 23:59 23:59 23:59 23:59 Intake Total 240 Output Total 450 800 Balance -210 -800 Meds/Results Medications: Active Medications Generic Name Dose Route Start Last Admin Trade Name Freq PRN Reason Stop Dose Admin Acetaminophen 650 mg 09/09/25 06:35 Acetaminophen 325 Mg Tablet PO Q4H PRN Mild Pain (1-3) or Fever Hydrocodone Bitart/Acetaminophen 2 tab 11/22/25 06:35 09/10/25 05:18 Hydrocodone/Acetaminophen (*Crx) 5-325 Mg Tablet PO 2 tab Q4H PRN Administration Pain Rated 7-10 Enoxaparin Sodium 30 mg 09/10/25 09:00 Enoxaparin 30 Mg/0.3 Ml Syringe SUB-Q DAILY CHRIS Hydromorphone HCl 0.5 mg 09/09/25 14:18 09/10/25 02:55 Hydromorphone Hcl Inj (*Crx) 1 Mg/Ml Syr IV PUSH 0.5 mg Q3H PRN Administration Pain Rated 7-10 Levothyroxine Sodium 125 mcg 09/09/25 08:30 09/10/25 05:17 Levothyroxine Sodium 125 Mcg Tablet BY MOUTH 125 mcg DAILY@0630 CHRIS Administration Multivitamins Therapeutic 1 tablet 09/09/25 09:00 09/09/25 09:26 Multivitamins Therapeutic Tab (*Bkc) PO 1 tablet DAILY CHRIS Administration Mycophenolate Mofetil 500 mg 09/09/25 09:00 09/09/25 17:34 Mycophenolate Mofetil 250 Mg Capsule PO 500 mg BID CHRIS Administration Ondansetron HCl 4 mg 09/09/25 06:35 Ondansetron Inj 4 Mg/2 Ml Vial IV PUSH Q4H PRN Nausea Pantoprazole Sodium 40 mg 09/09/25 09:00 09/09/25 09:26 Pantoprazole 40 Mg Tablet PO 40 mg QAM CHRIS Administration Tacrolimus 1.5 mg 09/10/25 09:00 Tacrolimus 0.5 Mg Capsule PO DAILY CHRIS Tacrolimus 1 mg 09/09/25 21:00 09/09/25 19:50 Tacrolimus 0.5 Mg Capsule PO 1 mg HS CHRIS Administration Vitamin D 25 mcg 09/09/25 09:00 09/09/25 09:26 Cholecalciferol (Vitamin D3) 25 Mcg (1,000 Units) Tablet PO 25 mcg DAILY CHRIS Administration Radiology Results: ITS Impressions Chest X-Ray 09/09/25 06:52 IMPRESSION: 1. No acute cardiopulmonary findings given portable technique. Quality VTE Prophylaxis VTE prophylaxis: pharmacologic ordered
[2025-09-10] MEDS: TACROLIMUS 0.5 MG CAPSULE 1.5 MG PO (08:36)
[2025-09-10] MEDS: PANTOPRAZOLE 40 MG TABLET PO (08:36)
[2025-09-10] MEDS: MULTIVITAMINS THERAPEUTIC TAB (*BKC) 1 TABLET PO (08:36)
[2025-09-10] MEDS: CHOLECALCIFEROL (VITAMIN D3) 25 MCG (1,000 UNITS) TABLET PO (08:36)
--- NOTE | 2025-09-10 10:39 | PC.NURSE ---
To OR per [bed ], IV [ 18 LAC]. Report given to [ ].Cynthia NEUMANN
--- NOTE | 2025-09-10 12:48 | WPDANESEPPF ---
Anes - Initial Pre Proc Eval Procedure: Operation Date: 09/10/25 10:25 Proposed Procedures p Bipolar Hip Replacement(Left) - Roberto Jiang MD Date/Time: 09/10/25 12:48 Surgeon: Wood Ruiz MD Pre Op Diagnosis: Femoral Neck Fracture Patient Data Age: 65 Gender: F Height: 1.68 m Weight: 79.2 kg Last Vital Signs Temp 36.7 C 09/10/25 05:05 Pulse 86 09/10/25 05:05 Resp 16 09/10/25 05:05 BP 144/71 H 09/10/25 05:05 Pulse Ox 93 09/10/25 08:25 O2 Del Method Room Air 09/10/25 08:25 Allergies Allergy/AdvReac Type Severity Reaction Status Date / Time erythromycin base Allergy Unknown Unknown Verified 09/09/25 08:08 Penicillins Allergy Unknown Unknown Verified 09/09/25 08:08 Home Medications ?Medication ?Instructions ?Recorded ?Confirmed ?Type mycophenolate mofetil 500 mg tablet 500 mg PO BID 11/28/19 09/09/25 History multivitamin 1 tablet PO DAILY 02/28/21 09/09/25 History omeprazole 20 mg capsule,delayed 20 mg PO DAILY 05/15/22 09/09/25 History release tacrolimus 0.5 mg capsule, 2.5 mg PO Q12H 05/15/22 09/09/25 History immediate-release calcium 300 mg-vit D3 200 1 tablet PO DAILY 04/07/23 09/09/25 History [id number] 13.5 mg tablet (Citracal Plus Bone Density Builder) cholecalciferol (vitamin D3) 25 25 mcg PO DAILY 04/07/23 09/09/25 History mcg (1,000 unit) capsule levothyroxine 125 mcg tablet See Rx Instructions .Route 09/05/25 09/09/25 Rx .COMPLEX #90 tabs Patient hx anesthesia problems: none Family hx anesthesia problems: none Results Review: All pre-operative results and documents have been reviewed as part of the pre-operative evaluation. 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 Menopause Hypothyroidism (acquired) History of abnormal cervical Pap smear Hepatitis, autoimmune Encounter for gynecological examination (general) (routine) without abnormal findings Dietary counseling and surveillance (08/27/17) Closed nondisplaced fracture of fifth metatarsal bone of left foot Body mass index [BMI] 30.0-30.9, adult (09/17/17) Autonomic neuropathy in diseases classified elsewhere Adverse effect of antineoplastic and immunosuppressive drugs, sequela Abscess of axilla, left History of cirrhosis Hypothyroidism GERD (gastroesophageal reflux disease) Arthritis Surgical History Surgical History Hx of liver transplant History of umbilical hernia repair H/O tubal ligation Liver transplant recipient Family History Family History Father Diabetes mellitus Other Diabetes mellitus Family history of type 1 diabetes mellitus Grandparent Family history of malignant neoplasm of breast Mother Atrial fibrillation Social History Social History Social History: Single Smoking status: Never smoker Second hand tobacco smoke exposure: No Alcohol intake: never Substance use: never Substance use type: does not use Lack of Transportation: No Lack of Food: Never True Current Housing: I Have Housing Concerned About Future Housing: No Difficulty Paying Gas/Electric Bills: No Difficulty Paying for Meds: No Currently Unemployed: No Education: Decline to Answer Difficulty w/ Childcare or Family Care: No Living arrangements: with family Occupation/Education: unemployed Additional occupation/education comments: Disability Gender identity (if verbalized by the patient): Female Sexual Orientation (if Verbalized by the Patient): Straight or Heterosexual Spiritual care concerns: No Anes - Eval Final PreProcedure Day of Procedure 09/10/25 12:48 Patient weight: overweight Heart: regular rate and rhythm Lungs: clear to auscultation Airway: Mallampati scale class II Neurological: alert and oriented Last oral intake: >/= 8 hours ASA classification: III Emergent: no Anesthetic plan: proceed Anesthesia type and monitoring: general ETT and standard monitoring Results Review: All pre-operative results and documents have been reviewed as part of the pre-operative evaluation. Informed Consent: The patient's anesthetic plan and its attendant risks and benefits were discussed with the patient/family/POA. Questions were solicited and answers provided to the satisfaction of the patient/family/POA.
--- NOTE | 2025-09-10 13:09 | PM.CNOR ---
Assessment and Plan Assessment and plan (1) Fracture of femoral neck, left: Code(s): S72.002A - Fracture of unspecified part of neck of left femur, initial encounter for closed fracture Status: Acute Assessment and Plan: VERNON IS HERE FO HER LEFT HIP INJURY. SHE TRIPPED WHILE PLAYING WITH HER DOGS AND INJURED HER LEFT HIP. SHE WAS SEEN IN THE ED AND DIAGNOSED WITH A DISPLACED LEFT FEMORAL NECK FRACTURE. SHE DENIES ANY OTHER INJURY. SHE DENIES ANY BACK NECK OR UPPER EXTREMITY OR LOWER EXTREMITY PAIN. HISTORY, EXAM AND RADIOGRAPHS REVIEWED WITH THE PATIENT. REFERRING PHYSICIAN RECORDS AND IMAGES REVIEWED. CONDITION, NATURE, ETIOLOGY AND COURSE OF NATURAL HISTORY REVIEWED. CONSERVATIVE AND OPERATIVE TREATMENT OPTIONS REVIEWED WELL THE RISKS AND BENEFITS OF EACH. XRAYS SHOW DISPLACED LEFT FEMORAL NECK FRACTURE. VERNON HAS A HISTORY OF LIVER TRANSPLANT. WE WDISCUSSED THE TREATMENT OPTIONS OF BOTH HEMIARTHROPLASY AND SHAVON. WE WILL PROCEED WITH LEFT HEMIARTHROPLASTY DISCUSSED NONOPERATIVE AND OPERATIVE TREATMENT OPTIONS WITH THE PATIENT. THE PATIENT'S QUESTIONS WERE ANSWERED. THE PATIENT DESIRES OPERATIVE TREATMENT. DISCUSSED ____LEFT HIP KATH ARTHROPLASTY POSSIBLE LEFT THA . RISKS OF SURGERY INCLUDING BUT NOT LIMITED TO NEUROVASCULAR DAMAGE, WOUND COMPLICATIONS, BLOOD CLOT, PULMONARY EMBOLUS, STROKE, OR, ANESTHETIC RISKS UP TO AND INCLUDING WERE REVIEWED. CONTINUED PAIN AND POSSIBLE DYSFUNCTION WERE EXPLAINED. NO GUARANTEES WERE OFFERED. THE PATIENT UNDERSTANDS AND WISHES TO PROCEED. History of Present Illness HPI Consult date: 09/10/25 Chief complaint: Femoral Neck Fracture Narrative: VERNON IS HERE FO HER LEFT HIP INJURY. SHE TRIPPED WHILE PLAYING WITH HER DOGS AND INJURED HER LEFT HIP. SHE WAS SEEN IN THE ED AND DIAGNOSED WITH A DISPLACED LEFT FEMORAL NECK FRACTURE. SHE DENIES ANY OTHER INJURY. SHE DENIES ANY BACK NECK OR UPPER EXTREMITY OR LOWER EXTREMITY PAIN. HISTORY, EXAM AND RADIOGRAPHS REVIEWED WITH THE PATIENT. REFERRING PHYSICIAN RECORDS AND IMAGES REVIEWED. CONDITION, NATURE, ETIOLOGY AND COURSE OF NATURAL HISTORY REVIEWED. CONSERVATIVE AND OPERATIVE TREATMENT OPTIONS REVIEWED WELL THE RISKS AND BENEFITS OF EACH. 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 Menopause Hypothyroidism (acquired) History of abnormal cervical Pap smear Hepatitis, autoimmune Encounter for gynecological examination (general) (routine) without abnormal findings Dietary counseling and surveillance (08/27/17) Closed nondisplaced fracture of fifth metatarsal bone of left foot Body mass index [BMI] 30.0-30.9, adult (09/17/17) Autonomic neuropathy in diseases classified elsewhere Adverse effect of antineoplastic and immunosuppressive drugs, sequela Abscess of axilla, left History of cirrhosis Hypothyroidism GERD (gastroesophageal reflux disease) Arthritis Surgical History Surgical History Hx of liver transplant History of umbilical hernia repair H/O tubal ligation Liver transplant recipient Family History Family History Father Diabetes mellitus Other Diabetes mellitus Family history of type 1 diabetes mellitus Grandparent Family history of malignant neoplasm of breast Mother Atrial fibrillation Social History Social History Social History: Single Smoking status: Never smoker Second hand tobacco smoke exposure: No Alcohol intake: never Substance use: never Substance use type: does not use Lack of Transportation: No Lack of Food: Never True Current Housing: I Have Housing Concerned About Future Housing: No Difficulty Paying Gas/Electric Bills: No Difficulty Paying for Meds: No Currently Unemployed: No Education: Decline to Answer Difficulty w/ Childcare or Family Care: No Living arrangements: with family Occupation/Education: unemployed Additional occupation/education comments: Disability Gender identity (if verbalized by the patient): Female Sexual Orientation (if Verbalized by the Patient): Straight or Heterosexual Spiritual care concerns: No Meds Home Medications and Allergies Home Medications ?Medication ?Instructions ?Recorded ?Confirmed ?Type mycophenolate mofetil 500 mg tablet 500 mg PO BID 11/28/19 09/09/25 History multivitamin 1 tablet PO DAILY 02/28/21 09/09/25 History omeprazole 20 mg capsule,delayed 20 mg PO DAILY 05/15/22 09/09/25 History release tacrolimus 0.5 mg capsule, 2.5 mg PO Q12H 05/15/22 09/09/25 History immediate-release calcium 300 mg-vit D3 200 1 tablet PO DAILY 04/07/23 09/09/25 History wlae-wtnwrvvn-zhrdbrjdg 13.5 mg tablet (Citracal Plus Bone Density Builder) cholecalciferol (vitamin D3) 25 25 mcg PO DAILY 04/07/23 09/09/25 History mcg (1,000 unit) capsule levothyroxine 125 mcg tablet See Rx Instructions .Route 09/05/25 09/09/25 Rx .COMPLEX #90 tabs Allergies Allergy/AdvReac Type Severity Reaction Status Date / Time erythromycin base Allergy Unknown Unknown Verified 09/09/25 08:08 Penicillins Allergy Unknown Unknown Verified 09/09/25 08:08 Vital Signs Vital Signs - 24 hr 09/09/25 14:00 09/09/25 20:40 09/10/25 05:05 Temperature 36.5 C 36.8 C 36.7 C Pulse Rate 70 77 86 Respiratory Rate 18 16 16 Blood Pressure 129/64 140/66 144/71 H Pulse Oximetry 100 93 98 Oxygen Delivery 09/10/25 08:25 Temperature Pulse Rate Respiratory Rate Blood Pressure Pulse Oximetry 93 Oxygen Delivery Room Air Exam Back/Spine/Pelvis: Back: no CVA tenderness, No ecchymosis and No back tenderness Cervical Spine: normal cervical lordosis, cervical ROM normal, No cervical muscular tenderness, No Cervical spine tenderness and No step off deformity Thoracic/Lumbar Spine: thoracic and lumbar spine normal to inspection, No paraspinal muscle tenderness, No thoracic spinal tenderness and No lumbar spinal tenderness Sacrum: no tenderness and No sacral edema Coccyx: no swelling and no tenderness Extrem: Left lower extremity: hip/thigh Details: abnormal to inspection, tenderness, swelling, abnormal ROM Details: pain with active ROM Details: with ADduction, with ABduction, with extension, with flexion, with internal rotation and with external rotation, pain with resistance Details: to ADduction, to ABduction, to extension, to flexion, to internal rotation and to external rotation and pain with passive ROM Details: with ADduction, with ABduction, with extension, with flexion, with internal rotation and with external rotation and ecchymosis, knee Details: normal to inspection and normal ROM; no tenderness and no swelling, lower leg Details: normal to inspection and palpable cord; no tenderness, ankle Details: normal to inspection and normal ROM; no tenderness and no swelling and foot Details: normal capillary refill, normal to inspection, vascular exam Details: dorsalis pedis pulse present and posterior tibial pulse present, tendon exam active flexion normal and active extension normal and motor-sensory exam light-touch normal; no tenderness Psych: Mental Status: mental status grossly normal Results Labs 09/09/25 05:42 09/09/25 05:42 Labs: H & H 09/09/25 Range/Units 05:42 Hgb 13.3 (12.0-15.0) g/dL Hct 40.9 (37.0-47.0) % Coagulation 09/09/25 Range/Units 05:42 INR 1.0 All other labs normal.
--- NOTE | 2025-09-10 13:19 | WPDHPUPDATE1 ---
History and Physical Update Update Date/Time: 09/10/25 13:19 History and Physical has been reviewed, including an updated exam of the patient. There are NO changes in the patient's condition. Risks, benefits, and alternatives have been discussed and questions answered. Patient agrees to proceed with procedure.
[2025-09-10] MEDS: TRANEXAMIC ACID 1,000MG/ISO100 1,000 MG/100 ML BAG 200 MG IVPB (13:23)
[2025-09-10] MEDS: ceFAZolin 2 GM in SODIUM CHLORIDE 0.9% IV 50 ML 100 ML IVPB ×2 (13:23→20:13)
[2025-09-10] MEDS: LACTATED RINGERS 1,000 ML 30 ML IV CONT (15:34)
[2025-09-10] MEDS: fentaNYL CITRATE INJ (*CRX) 100 MCG/2 ML VIAL 25 MCG IV PUSH ×6 (15:34→16:11)
--- NOTE | 2025-09-10 15:51 | W.PM.PROC2 ---
Procedure Note - Detailed Date of Procedure 09/10/25 Pre-op Diagnosis Femoral Neck Fracture Post-op Diagnosis Same Procedure Performed LEFT HIP HEMIARTHROPLASTY WITH BIPOLAR PROSTHESIS Surgeon Roberto Jiang MD Anesthesia General Description of Procedure THE PATIENT WAS TAKEN TO THE OPERATING ROOM IN STABLE CONDITION. HE WAS PLACED IN THE LATERAL DECUBITUS AND THE LEFT LOWER EXTREMITY WAS PREPPED AND DRAPED IN THE STERILE FASHION. INCISION WAS MADE IN THE POSTERIOR LATERAL SIDE OF THE HIP, DOWN TO THE FASCIA LAYER. THE FASCIA WAS INCISED. THE HIP WAS EXPOSED. THE SHORT EXTERNAL ROTATORS WERE EXPOSED AND THERE WAS A LARGE HEMATOMA. THE CAPSULE WAS INCISED EXPOSING THE FRACTURE. THE FEMORAL HEAD WAS REMOVED. IT MEASURED 46 MM. AN OSTEOTOMY WAS MADE TO THE FEMORAL NECK ABOUT 1 CM PROXIMAL TO THE LESSER TROCHANTER. NEXT THE FEMUR WAS PREPARED WITH INITIAL CANAL FINDER THEN SEQUENTIAL REAMING UNTIL A 6.5 BROACH FIT WELL IN 15 OF ANTE VERSION. A +0 STANDARD OFFSET NECK BIPOLAR TRIAL IN A 46 MM SHELL WAS PLACED. THE SHUCK TEST WAS EXCELLENT AND THE STABILITY IN FLEXION AND ROTATION WAS EXCELLENT. LEG LENGTHS WERE GROSSLY EQUAL. TRIALS WERE REMOVED. AN EDEL STEM 6.5 PRESS FIT STEM WAS PLACED WITH A STANDARD OFFSET IN 15 DEG OF ANTEVERSION. A +0 BIPOLAR HEAD NECK TRIAL WAS PLACED AGAIN. THE HIP WAS TRIALED AND THE STABILITY WAS EXCELLENT WERE THE LEG LENGTHS AND THE SHUCK TEST. NEXT A BIPOLAR HEAD NECK +0 IMPLANT WITH A 46 MM COBALT CHROME SHELL WAS PLACED AND TRIALED ONCE AGAIN SHOWING EXCELLENT STABILITY AND GROSSLY EQUAL LEG LENGTHS. THE WOUND WAS IRRIGATED WITH STERILE BETADINE AND WATER FOR 3 MIN. THEN WASHED AGAIN. THE CAPSULE AND THE EXTERNAL ROTATORS WERE APPROXIMATED WITH NUMBER 1 VICRYL. THE FASCIA WITH No 2 QUIL AND THE SUB CUTANEOUS LAYER WITH 2-0 ABSORBABLE SUTURE WAS PLACED DIMA FOR THE SKIN AND STERILE DRESSING WAS APPLIED. PATIENT WAS PLACED BACK ON TO THE SUPINE POSITION AND WAS EXTUBATED. Estimated Blood Loss 500 Drains No Pathology None sent Complications No immediate complications Condition Stable Disposition PACU
[2025-09-10] MEDS: HYDROmorphone HCL INJ (*CRX) 1 MG/ML SYR IV PUSH ×2 (18:34→21:00)
[2025-09-10] MEDS: TACROLIMUS 0.5 MG CAPSULE 1 MG PO (20:16)
[2025-09-11] VITALS: BP 116/55; PULSE 84; RESP 20; TEMP 36.7; O2SAT 96
[2025-09-11] MEDS: ceFAZolin 2 GM in SODIUM CHLORIDE 0.9% IV 50 ML 100 ML IVPB ×2 (05:14→11:54)
[2025-09-11] MEDS: HYDROmorphone HCL INJ (*CRX) 1 MG/ML SYR IV PUSH (05:17)
[2025-09-11 05:51] VITALS: BP 131/68; PULSE 85; RESP 20; TEMP 37.3; O2SAT 94
[2025-09-11] MEDS: LEVOTHYROXINE SODIUM 125 MCG TABLET BY MOUTH (06:01)
--- NOTE | 2025-09-11 06:02 | PC.NURSE ---
pt Grijalva catheter removed this shift without difficulty. pt also got up in a chair tolerated well with two assist gait belt and walker.
[2025-09-11 06:11] LABS: Hematocrit 31.3 % (37.0-47.0); Hemoglobin 10.2 g/dL (12.0-15.0); Immature Granulocyte Percent A 0.4 % (0-0.5); Lymphocytes Absolute Auto 1.04 K/mm3 (0.9-3.2); Mean Corpuscular HGB Conc 32.6 g/dl (32-36); Mean Corpuscular Hemoglobin 30.5 pg (26-34); Mean Corpuscular Volume 93.7 fl (80-100); Nucleated Red Blood Cells Absolute Auto 0.000 K/mm3 (0.0-0.012); Nucleated Red Blood Cells Perc 0.0 % (0.0-0.2); Platelet Count Result 147 k/mm3 (150-375); Red Blood Count 3.34 M/mm3 (4.2-5.4); White Blood Count 8.5 K/mm3 (4.5-10.0)
[2025-09-11 06:40] LABS: Anion Gap 5 mmol/L (4-12); Blood Urea Nitrogen 12 mg/dL (7-17); Calcium 8.2 mg/dL (8.4-10.2); Carbon Dioxide 25 mmol/L (22-30); Chloride 100 mmol/L (98-107); Estimated CRCL calculation 67 ml/min; Estimated Glomerular Filt Rate > 60; Glucose 134 mg/dL (65-110); Potassium 3.5 mmol/L (3.4-5.0); Sodium 130 mmol/L (137-145)
[2025-09-11 07:42] VITALS: BP 100/56; PULSE 89; RESP 16; TEMP 36.7; O2SAT 96
[2025-09-11] MEDS: MULTIVITAMINS THERAPEUTIC TAB (*BKC) 1 TABLET PO (08:05)
[2025-09-11] MEDS: TACROLIMUS 0.5 MG CAPSULE 1.5 MG PO (08:05)
[2025-09-11] MEDS: CHOLECALCIFEROL (VITAMIN D3) 25 MCG (1,000 UNITS) TABLET PO (08:05)
[2025-09-11] MEDS: ENOXAPARIN 40 MG/0.4 ML SYRINGE SUB-Q (08:06)
[2025-09-11] MEDS: SENNA/DOCUSATE SODIUM TABLET 2 TAB PO ×2 (08:06→16:45)
[2025-09-11] MEDS: PANTOPRAZOLE 40 MG TABLET PO (08:06)
[2025-09-11] MEDS: oxyCODONE/ACETAMINOPHEN (*CRX) 10-325 MG TABLET 1 TAB PO ×2 (08:13→14:07)
--- NOTE | 2025-09-11 09:40 | WPDANESPN ---
Anes - Prog Note Post-Op Date/Time: 09/11/25 09:40 Cardiovascular status: normal Respiratory status: normal Airway patency: baseline Mental status: baseline Post-Op hydration status: normal Vital Signs: Last Vital Signs Temp 98.1 F 09/11/25 07:42 Pulse 89 09/11/25 07:42 Resp 16 09/11/25 07:42 BP 100/56 L 09/11/25 07:42 Pulse Ox 96 09/11/25 07:42 O2 Del Method Room Air 09/10/25 16:20 O2 Flow Rate 6 09/10/25 15:35 Pain Score (VAS): 0 I/O: Intake & Output 09/10/25 09/11/25 09/11/25 23:59 07:59 15:59 Intake Total 390 500 Output Total 700 1000 Balance -310 -500 Laboratory Tests 09/11/25 05:45 09/11/25 05:45 09/11/25 05:45 WBC 8.5 RBC 3.34 L Hgb 10.2 L D Hct 31.3 L MCV 93.7 MCH 30.5 MCHC 32.6 RDW 12.9 Plt Count 147 L MPV 10.1 Immature Gran % (Auto) 0.4 Neut % (Auto) 79.1 H Lymph % (Auto) 12.2 L [place] % (Auto) 8.0 Eos % (Auto) 0.1 Baso % (Auto) 0.2 Lymph # (Auto) 1.04 [place] # (Auto) 0.7 H Eos # (Auto) 0.0 Baso # (Auto) 0.0 Abs Immat Gran (auto) 0.03 Absolute Neuts (auto) 6.7 Absolute Nucleated RBC 0.000 Nucleated RBC % 0.0 Sodium 130 L Potassium 3.5 Chloride 100 Carbon Dioxide 25 Anion Gap 5 BUN 12 Creatinine 0.80 Estim Creat Clear Calc 67 Estimated GFR > 60 Glucose 134 H Calcium 8.2 L Post-procedural complaints: none Patient Feedback: Patient satisfied with anesthetic care.
--- NOTE | 2025-09-11 09:40 | PM.IMPN ---
Progress Note: A&P Assessment and Plan (1) Hypothyroidism: Code(s): E03.9 - Hypothyroidism, unspecified Status: Acute (2) Low vitamin D level: Code(s): R79.89 - Other specified abnormal findings of blood chemistry Status: Acute (3) Liver transplant recipient: Code(s): Z94.4 - Liver transplant status Status: Acute (4) Hepatitis, autoimmune: Code(s): K75.4 - Autoimmune hepatitis Status: Acute (5) Personal history of immunosupression therapy: Code(s): Z92.25 - Personal history of immunosuppression therapy Status: Acute (6) Fracture of femoral neck, left: Code(s): S72.002A - Fracture of unspecified part of neck of left femur, initial encounter for closed fracture Status: Acute Plan 65-year-old female with PMH/o GERD, hypothyroidism, autoimmune hepatitis s/p transplant, on chronic anti rejection meds admitted after mechanical fall wall letting her dogs outside. She was pulled by her dog and fell over landing onto her left hip. She was having significant pain and called EMS. Was not able to fully extend her hip but has good range of motion at the knee and ankle. She states she has chronic sensation loss in her bilateral lower extremities secondary to the medication she takes daily but nothing new. No new paresthesias or weakness. She received fentanyl by EMS with relief in pain. X-ray independently reviewed interpreted by radiology. Patient has a minimally displaced femoral neck fracture. Consistent with her exam findings. Grijalva catheter inserted in ED secondary to new immobility. Pain mngmnt: tylenol 650 mg q4h prn, norco 5/325- 2 tabs q4h prn, lidocaine patch, robaxin x 1 given in ed.Added Dilaudid for breakthrough pain Zofran os ordered for nausea. - Will continue to monitor vascular status NPO for a possible surgery today pain is a lot better controlled with Dilaudid prn 09/11 s/p day 1 LEFT HIP HEMIARTHROPLASTY WITH BIPOLAR PROSTHESIS with DR Jiang. -pt/ot - lovenox for DVT prophylaxis -pain/nausea control Pt is full code Time Spent With Patient Time with patient: 25 - 35 minutes Subjective Date/time seen: 09/11/25 09:41 Interval history: 65-year-old female with PMH/o , hypothyroidism, autoimmune hepatitis s/p transplant, on chronic anti rejection meds admitted after mechanical fall wall letting her dogs outside. She was pulled by her dog and fell over landing onto her left hip. She was having significant pain and called EMS. Was not able to fully extend her hip but has good range of motion at the knee and ankle. She states she has chronic sensation loss in her bilateral lower extremities secondary to the medication she takes daily but nothing new. No new paresthesias or weakness. She received fentanyl by EMS with relief in pain. She denies sick contact, dizziness/chest pain/sob, no head trauma denies any other injuries. No pain anywhere else besides her left proximal femur/ hip region. Denies any blood thinner use or aspirin. Ortho was consulted in ED. 09/10 pt is NPO at midnight. ortho is following. Grijalva in place, pain is tolerable as long as she does not move. hopefully surgery today 09/11 s/p day 1 LEFT HIP HEMIARTHROPLASTY WITH BIPOLAR PROSTHESIS with DR Jiang. Pain is tolerable with PO percocet. Working with pt/ot.doing well otherwise Review of Systems Review of Systems: All systems reviewed & are unremarkable except as noted in HPI and below Exam Const: General: comfortable Resp: Effort & Inspection: normal respiratory effort Auscultation: clear to auscultation bilaterally Cardio: Rate: regular rate Rhythm: regular rhythm GI: Auscultation: normal bowel sounds Urinary Catheter: Urinary Catheter: patent and draining Skin: General skin exam: normal color Neuro: Speech: normal speech Extrem: General: normal to inspection Other: skin is BLE warm to touch, pedal pulses present Psych: Mental Status: mental status grossly normal Affect: normal affect Objective Data Vital Signs Vital Signs: Vital Signs - 24 hr 09/10/25 15:21 09/10/25 15:35 09/10/25 15:50 Temperature 97.0 F L Pulse Rate 75 69 79 Respiratory Rate 12 16 16 Blood Pressure 156/82 H 146/83 H 157/77 H Pulse Oximetry 100 100 100 Oxygen Delivery Simple Face Mask Simple Face Mask Room Air Oxygen Flow Rate 6 6 09/10/25 16:05 09/10/25 16:20 09/10/25 16:20 Temperature 97.2 F L 97.0 F L Pulse Rate 77 78 81 Respiratory Rate 14 14 16 Blood Pressure 160/87 H 150/81 H 154/98 H Pulse Oximetry 95 92 98 Oxygen Delivery Room Air Room Air Oxygen Flow Rate 09/10/25 16:50 09/10/25 17:20 09/10/25 18:05 Temperature 96.3 F L 96.8 F L 96.7 F L Pulse Rate 71 78 93 Respiratory Rate 16 16 18 Blood Pressure 157/83 H 155/66 H 151/88 H Pulse Oximetry 98 99 98 Oxygen Delivery Oxygen Flow Rate 09/10/25 21:21 09/11/25 00:00 09/11/25 05:51 Temperature 97.6 F 98.1 F 99.1 F Pulse Rate 77 84 85 Respiratory Rate 18 20 20 Blood Pressure 133/68 116/55 L 131/68 Pulse Oximetry 98 96 94 Oxygen Delivery Oxygen Flow Rate 09/11/25 07:42 Temperature 98.1 F Pulse Rate 89 Respiratory Rate 16 Blood Pressure 100/56 L Pulse Oximetry 96 Oxygen Delivery Oxygen Flow Rate Intake/Output Intake/Output: Intake & Output 09/08/25 09/09/25 09/10/25 09/11/25 23:59 23:59 23:59 23:59 Intake Total 240 540 500 Output Total 450 1500 1000 Balance -210 960 -500 Meds/Results Medications: Active Medications Generic Name Dose Route Start Last Admin Trade Name Freq PRN Reason Stop Dose Admin Acetaminophen 500 mg 09/10/25 16:20 Acetaminophen 500 Mg Tablet PO Q6H PRN Pain Rated 1-3 Diazepam 5 mg 09/10/25 16:20 Diazepam (*Crx) 5 Mg Tablet PO Q8H PRN Muscle Spasm Enoxaparin Sodium 40 mg 09/11/25 09:00 09/11/25 08:06 Enoxaparin 40 Mg/0.4 Ml Syringe SUB-Q 40 mg DAILY CHRIS Administration Hydromorphone HCl 0.5 mg 09/10/25 16:20 Hydromorphone Hcl Inj (*Crx) 1 Mg/Ml Syr IV PUSH Q2H PRN Breakthrough Pain Rated 4-6 or NPO Hydromorphone HCl 1 mg 09/10/25 16:20 09/11/25 05:17 Hydromorphone Hcl Inj (*Crx) 1 Mg/Ml Syr IV PUSH 1 mg Q2H PRN Administration Breakthrough Pain Rated 7-10 or NPO Hydroxyzine Pamoate 50 mg 09/10/25 16:20 Hydroxyzine Pamoate 25 Mg Capsule PO Q4H PRN Itching Cefazolin Sodium 2 gm/ Sodium 50 mls @ 100 mls/hr 09/10/25 20:00 09/11/25 05:14 Chloride IVPB 09/11/25 12:29 100 mls/hr Q8H CHRIS Administration Levothyroxine Sodium 125 mcg 09/09/25 08:30 09/11/25 06:01 Levothyroxine Sodium 125 Mcg Tablet BY MOUTH 125 mcg DAILY@0630 CHRIS Administration Multivitamins Therapeutic 1 tablet 09/09/25 09:00 09/11/25 08:05 Multivitamins Therapeutic Tab (*Bkc) PO 1 tablet DAILY CHRIS Administration Mycophenolate Mofetil 500 mg 09/09/25 09:00 09/11/25 08:05 Mycophenolate Mofetil 250 Mg Capsule PO 500 mg BID CHRIS Administration Naloxone HCl 0.1 mg 09/10/25 16:20 Naloxone Hcl 0.4 Mg/Ml Vial IV PUSH Q2M PRN Opiate Reversal Ondansetron HCl 4 mg 09/10/25 16:20 Ondansetron Inj 4 Mg/2 Ml Vial IV PUSH Q4H PRN Nausea And Vomiting Oxycodone/Acetaminophen 1 tablet 09/10/25 16:20 Oxycodone/Acetaminophen (*Crx) 5-325 Mg Tablet PO Q4H PRN Pain Rated 4-6 Oxycodone/Acetaminophen 1 tab 09/10/25 16:20 09/11/25 08:13 Oxycodone/Acetaminophen (*Crx) 10-325 Mg Tablet PO 1 tab Q6H PRN Administration Pain Rated 7-10 Pantoprazole Sodium 40 mg 09/09/25 09:00 09/11/25 08:06 Pantoprazole 40 Mg Tablet PO 40 mg QAM CHRIS Administration Polyethylene Glycol 17 gm 09/11/25 09:00 09/11/25 08:04 Polyethylene Glycol 3350 17 Gm Powd.Pack PO 17 gm QAM CHRIS Administration Senna/Docusate Sodium 2 tab 09/10/25 17:00 09/11/25 08:06 Senna/Docusate Sodium Tablet PO 2 tab BID CHRIS Administration Tacrolimus 1.5 mg 09/10/25 09:00 09/11/25 08:05 Tacrolimus 0.5 Mg Capsule PO 1.5 mg DAILY CHRIS Administration Tacrolimus 1 mg 09/09/25 21:00 09/10/25 20:16 Tacrolimus 0.5 Mg Capsule PO 1 mg HS CHRIS Administration Vitamin D 25 mcg 09/09/25 09:00 09/11/25 08:05 Cholecalciferol (Vitamin D3) 25 Mcg (1,000 Units) Tablet PO 25 mcg DAILY CHRIS Administration Radiology Results: ITS Impressions Chest X-Ray 09/09/25 06:52 IMPRESSION: 1. No acute cardiopulmonary findings given portable technique. Hip X-Ray 09/10/25 16:04 Impression: No acute fracture or malalignment. Labs Labs: Laboratory Results - last 24 hr 09/11/25 05:45 WBC 8.5 RBC 3.34 L Hgb 10.2 L D Hct 31.3 L MCV 93.7 MCH 30.5 MCHC 32.6 RDW 12.9 Plt Count 147 L MPV 10.1 Immature Gran % (Auto) 0.4 Neut % (Auto) 79.1 H Lymph % (Auto) 12.2 L [place] % (Auto) 8.0 Eos % (Auto) 0.1 Baso % (Auto) 0.2 Lymph # (Auto) 1.04 [place] # (Auto) 0.7 H Eos # (Auto) 0.0 Baso # (Auto) 0.0 Abs Immat Gran (auto) 0.03 Absolute Neuts (auto) 6.7 Absolute Nucleated RBC 0.000 Nucleated RBC % 0.0 Sodium 130 L Potassium 3.5 Chloride 100 Carbon Dioxide 25 Anion Gap 5 BUN 12 Creatinine 0.80 Estim Creat Clear Calc 67 Estimated GFR > 60 Glucose 134 H Calcium 8.2 L Quality VTE Prophylaxis VTE prophylaxis: pharmacologic ordered
--- NOTE | 2025-09-11 10:23 | PM.PNORT ---
Progress Note: A&P Assessment and Plan (1) Status post hemiarthroplasty of left hip: Code(s): Z96.642 - Presence of left artificial hip joint Status: Acute Assessment and Plan: POD #1: LEFT HIP HEMIARTHROPLASTY WITH BIPOLAR PROSTHESIS Continue PT/OT. WBAT. Walker. HIGH FALL RISK. Continue pain control. Ice Hip. Protect skin. DVT prophylaxis with Lovenox. SCDs. Incentive Spirometry Use reviewed. Monitor Dressing. Change prior to discharge. Bowel Regimen. Dispo: Home with Home Health pending progress with PT/OT Plan Reviewed history, exam, radiographs and current labs with attending MD and covering surgeon, Dr. Jiang, who agrees with current plan as indicated above. No further recommendations from Dr. Jiang at this time. Time Spent With Patient Time with patient: 15 - 25 minutes Subjective Subjective Date/Time Seen: 09/11/25 0850 Post Op day: 1 Interval history: POD #1: LEFT HIP HEMIARTHROPLASTY WITH BIPOLAR PROSTHESIS Patient doing very well. Pain well controlled. Hopeful to be discharged home with home health pending PT/OT. Review of Systems Constitutional: Constitutional: Denies chills, Denies fatigue, Denies fever(s), Denies night sweats and Denies weakness Cardiovascular: Cardiovascular: Denies chest pain, Denies lightheadedness, Denies palpitations and Denies dyspnea Respiratory: Respiratory: Denies cough, Denies dyspnea and Denies wheezing Gastrointestinal: Gastrointestinal: Denies abdominal pain, Denies diarrhea, Denies nausea and Denies vomiting Musculoskeletal: Musculoskeletal: Reports arthralgias (left hip ), Reports joint swelling (left hip ) and Denies numbness Neurologic: Denies numbness and Denies weakness Endocrine: Endocrine: Denies fatigue and Denies palpitations Allergic/Immunologic: Allergic/Immunologic: Denies wheezing Exam Const: General: comfortable and no acute distress Orientation/consciousness: patient oriented x3 Limitations: no limitations Resp: Effort & Inspection: normal respiratory effort Cardio: Rate: regular rate Rhythm: regular rhythm GI: Inspection: non-distended Skin: General skin exam: normal color and wounds noted (incision left hip C/D/I ) Wounds: wounds noted (incision left hip C/D/I ) Neuro: General: patient oriented x3 Extrem: Left lower extremity: hip/thigh Details: tenderness Location: of the hip Location: laterally and anteriorly, swelling (thigh soft ) Location: of the hip (lateral. ), abnormal ROM (limitations with internal/external rotation and flexion/extension due to recent surgical intervention ) and other (incision lateral hip c/d/i. ), knee Details: normal to inspection and normal ROM; no tenderness and no swelling, lower leg (Negative Bobby's Sign ) Details: no edema, ankle (+ankle dorsiflexion/plantarflexion ) Details: normal to inspection, no edema and normal ROM; no tenderness, no swelling and no warmth and foot Details: normal capillary refill, toes with normal ROM, vascular exam Details: dorsalis pedis pulse present and motor-sensory exam light-touch normal in all toes; no tenderness, no ecchymosis and no crepitus Psych: Mental Status: mental status grossly normal Affect: normal affect Objective Data Vital Signs Vital Signs: Vital Signs - 24 hr 09/10/25 15:21 09/10/25 15:35 09/10/25 15:50 Temperature 36.1 C L Pulse Rate 75 69 79 Respiratory Rate 12 16 16 Blood Pressure 156/82 H 146/83 H 157/77 H Pulse Oximetry 100 100 100 Oxygen Delivery Simple Face Mask Simple Face Mask Room Air Oxygen Flow Rate 6 6 09/10/25 16:05 09/10/25 16:20 09/10/25 16:20 Temperature 36.2 C L 36.1 C L Pulse Rate 77 78 81 Respiratory Rate 14 14 16 Blood Pressure 160/87 H 150/81 H 154/98 H Pulse Oximetry 95 92 98 Oxygen Delivery Room Air Room Air Oxygen Flow Rate 09/10/25 16:50 09/10/25 17:20 09/10/25 18:05 Temperature 35.7 C L 36.0 C L 35.9 C L Pulse Rate 71 78 93 Respiratory Rate 16 16 18 Blood Pressure 157/83 H 155/66 H 151/88 H Pulse Oximetry 98 99 98 Oxygen Delivery Oxygen Flow Rate 09/10/25 21:21 09/11/25 00:00 09/11/25 05:51 Temperature 36.4 C 36.7 C 37.3 C Pulse Rate 77 84 85 Respiratory Rate 18 20 20 Blood Pressure 133/68 116/55 L 131/68 Pulse Oximetry 98 96 94 Oxygen Delivery Oxygen Flow Rate 09/11/25 07:42 09/11/25 09:04 Temperature 36.7 C Pulse Rate 89 Respiratory Rate 16 Blood Pressure 100/56 L Pulse Oximetry 96 Oxygen Delivery Room Air Oxygen Flow Rate Intake/Output Intake/Output: Intake & Output 09/08/25 09/09/25 09/10/25 09/11/25 23:59 23:59 23:59 23:59 Intake Total 240 540 740 Output Total 450 1500 1000 Balance -210 960 -072 Meds/Results Medications: Active Medications Generic Name Dose Route Start Last Admin Trade Name Freq PRN Reason Stop Dose Admin Acetaminophen 500 mg 09/10/25 16:20 Acetaminophen 500 Mg Tablet PO Q6H PRN Pain Rated 1-3 Diazepam 5 mg 09/10/25 16:20 Diazepam (*Crx) 5 Mg Tablet PO Q8H PRN Muscle Spasm Enoxaparin Sodium 40 mg 09/11/25 09:00 09/11/25 08:06 Enoxaparin 40 Mg/0.4 Ml Syringe SUB-Q 40 mg DAILY CHRIS Administration Hydromorphone HCl 0.5 mg 09/10/25 16:20 Hydromorphone Hcl Inj (*Crx) 1 Mg/Ml Syr IV PUSH Q2H PRN Breakthrough Pain Rated 4-6 or NPO Hydromorphone HCl 1 mg 09/10/25 16:20 09/11/25 05:17 Hydromorphone Hcl Inj (*Crx) 1 Mg/Ml Syr IV PUSH 1 mg Q2H PRN Administration Breakthrough Pain Rated 7-10 or NPO Hydroxyzine Pamoate 50 mg 09/10/25 16:20 Hydroxyzine Pamoate 25 Mg Capsule PO Q4H PRN Itching Cefazolin Sodium 2 gm/ Sodium 50 mls @ 100 mls/hr 09/10/25 20:00 09/11/25 05:14 Chloride IVPB 09/11/25 12:29 100 mls/hr Q8H CHRIS Administration Levothyroxine Sodium 125 mcg 09/09/25 08:30 09/11/25 06:01 Levothyroxine Sodium 125 Mcg Tablet BY MOUTH 125 mcg DAILY@0630 CHRIS Administration Multivitamins Therapeutic 1 tablet 09/09/25 09:00 09/11/25 08:05 Multivitamins Therapeutic Tab (*Bkc) PO 1 tablet DAILY CHRIS Administration Mycophenolate Mofetil 500 mg 09/09/25 09:00 09/11/25 08:05 Mycophenolate Mofetil 250 Mg Capsule PO 500 mg BID CHRIS Administration Naloxone HCl 0.1 mg 09/10/25 16:20 Naloxone Hcl 0.4 Mg/Ml Vial IV PUSH Q2M PRN Opiate Reversal Ondansetron HCl 4 mg 09/10/25 16:20 Ondansetron Inj 4 Mg/2 Ml Vial IV PUSH Q4H PRN Nausea And Vomiting Oxycodone/Acetaminophen 1 tablet 09/10/25 16:20 Oxycodone/Acetaminophen (*Crx) 5-325 Mg Tablet PO Q4H PRN Pain Rated 4-6 Oxycodone/Acetaminophen 1 tab 09/10/25 16:20 09/11/25 08:13 Oxycodone/Acetaminophen (*Crx) 10-325 Mg Tablet PO 1 tab Q6H PRN Administration Pain Rated 7-10 Pantoprazole Sodium 40 mg 09/09/25 09:00 09/11/25 08:06 Pantoprazole 40 Mg Tablet PO 40 mg QAM CHRIS Administration Polyethylene Glycol 17 gm 09/11/25 09:00 09/11/25 08:04 Polyethylene Glycol 3350 17 Gm Powd.Pack PO 17 gm QAM CHRIS Administration Senna/Docusate Sodium 2 tab 09/10/25 17:00 09/11/25 08:06 Senna/Docusate Sodium Tablet PO 2 tab BID CHRIS Administration Tacrolimus 1.5 mg 09/10/25 09:00 09/11/25 08:05 Tacrolimus 0.5 Mg Capsule PO 1.5 mg DAILY CHRIS Administration Tacrolimus 1 mg 09/09/25 21:00 09/10/25 20:16 Tacrolimus 0.5 Mg Capsule PO 1 mg HS CHRIS Administration Vitamin D 25 mcg 09/09/25 09:00 09/11/25 08:05 Cholecalciferol (Vitamin D3) 25 Mcg (1,000 Units) Tablet PO 25 mcg DAILY CHRIS Administration Radiology Results: ITS Impressions Chest X-Ray 09/09/25 06:52 IMPRESSION: 1. No acute cardiopulmonary findings given portable technique. Hip X-Ray 09/10/25 16:04 Impression: No acute fracture or malalignment. Labs Labs: Laboratory Results - last 24 hr 09/11/25 05:45 WBC 8.5 RBC 3.34 L Hgb 10.2 L D Hct 31.3 L MCV 93.7 MCH 30.5 MCHC 32.6 RDW 12.9 Plt Count 147 L MPV 10.1 Immature Gran % (Auto) 0.4 Neut % (Auto) 79.1 H Lymph % (Auto) 12.2 L [place] % (Auto) 8.0 Eos % (Auto) 0.1 Baso % (Auto) 0.2 Lymph # (Auto) 1.04 [place] # (Auto) 0.7 H Eos # (Auto) 0.0 Baso # (Auto) 0.0 Abs Immat Gran (auto) 0.03 Absolute Neuts (auto) 6.7 Absolute Nucleated RBC 0.000 Nucleated RBC % 0.0 Sodium 130 L Potassium 3.5 Chloride 100 Carbon Dioxide 25 Anion Gap 5 BUN 12 Creatinine 0.80 Estim Creat Clear Calc 67 Estimated GFR > 60 Glucose 134 H Calcium 8.2 L
[2025-09-11 11:45] VITALS: BP 115/58; PULSE 79; RESP 18; TEMP 36.1; O2SAT 94
[2025-09-11 15:54] VITALS: BP 127/44; PULSE 88; RESP 16; TEMP 36.8; O2SAT 93
[2025-09-11] MEDS: TACROLIMUS 0.5 MG CAPSULE 1 MG PO (20:38)
[2025-09-11 21:10] VITALS: BP 117/57; PULSE 85; RESP 18; TEMP 36.8; O2SAT 96
[2025-09-12 05:20] VITALS: BP 119/66; PULSE 91; RESP 20; TEMP 37.1; O2SAT 94
[2025-09-12] MEDS: LEVOTHYROXINE SODIUM 125 MCG TABLET BY MOUTH (05:34)
[2025-09-12] MEDS: SENNA/DOCUSATE SODIUM TABLET 2 TAB PO ×2 (08:24→17:13)
[2025-09-12] MEDS: MULTIVITAMINS THERAPEUTIC TAB (*BKC) 1 TABLET PO (08:25)
[2025-09-12] MEDS: ENOXAPARIN 40 MG/0.4 ML SYRINGE SUB-Q (08:25)
[2025-09-12] MEDS: CHOLECALCIFEROL (VITAMIN D3) 25 MCG (1,000 UNITS) TABLET PO (08:25)
[2025-09-12] MEDS: TACROLIMUS 0.5 MG CAPSULE 1.5 MG PO (08:25)
[2025-09-12] MEDS: PANTOPRAZOLE 40 MG TABLET PO (08:25)
[2025-09-12 09:07] LABS: Hematocrit 30.8 % (37.0-47.0); Hemoglobin 10.0 g/dL (12.0-15.0); Mean Corpuscular HGB Conc 32.5 g/dl (32-36); Mean Corpuscular Hemoglobin 30.5 pg (26-34); Mean Corpuscular Volume 93.9 fl (80-100); Platelet Count Result 148 k/mm3 (150-375); Red Blood Count 3.28 M/mm3 (4.2-5.4); White Blood Count 9.6 K/mm3 (4.5-10.0)
--- NOTE | 2025-09-12 09:20 | P.PNOP_ITS ---
Progress Note: A&P Assessment and Plan (1) Status post hemiarthroplasty of left hip: Code(s): Z96.642 - Presence of left artificial hip joint Status: Acute Assessment and Plan: POD #2: LEFT HIP HEMIARTHROPLASTY WITH BIPOLAR PROSTHESIS Continue PT/OT. WBAT. Walker. HIGH FALL RISK. Continue pain control. Ice Hip. Protect skin. DVT prophylaxis with Lovenox. SCDs. Incentive Spirometry Use reviewed. Monitor Dressing. Change prior to discharge. Recommend Mepilex Silver. Bowel Regimen. Dispo: [facility] pending progress with PT/OT and medical clearance. Plan Reviewed history, exam, radiographs and current labs with attending MD and covering surgeon, Dr. Jiang, who agrees with current plan as indicated above. No further recommendations from Dr. Jiang at this time. Time Spent With Patient Time with patient: 15 - 25 minutes Subjective Subjective Date/Time Seen: 09/12/25 09:20 Post Op day: 2 Interval history: POD #2: LEFT HIP HEMIARTHROPLASTY WITH BIPOLAR PROSTHESIS Patient doing very well. Pain well controlled. Likely d/c to [facility] today. Review of Systems Constitutional: Constitutional: Denies chills, Denies fatigue, Denies fever(s), Denies night sweats and Denies weakness Cardiovascular: Cardiovascular: Denies chest pain, Denies lightheadedness, Denies palpitations and Denies dyspnea Respiratory: Respiratory: Denies cough, Denies dyspnea and Denies wheezing Gastrointestinal: Gastrointestinal: Denies abdominal pain, Denies diarrhea, Denies nausea and Denies vomiting Musculoskeletal: Musculoskeletal: Reports arthralgias (left hip ), Reports joint swelling (left hip ) and Denies numbness Neurologic: Denies numbness and Denies weakness Endocrine: Endocrine: Denies fatigue and Denies palpitations Allergic/Immunologic: Allergic/Immunologic: Denies wheezing Exam Const: General: comfortable and no acute distress Orientation/consciousness: patient oriented x3 Limitations: no limitations Resp: Effort & Inspection: normal respiratory effort Cardio: Rate: regular rate Rhythm: regular rhythm GI: Inspection: non-distended Skin: General skin exam: normal color and wounds noted (incision left hip C/D/I ) Wounds: wounds noted (incision left hip C/D/I ) Neuro: General: patient oriented x3 Extrem: Left lower extremity: hip/thigh Details: tenderness Location: of the hip Location: laterally and anteriorly, swelling (thigh soft ) Location: of the hip (lateral. ), abnormal ROM (limitations with internal/external rotation and flexion/extension due to recent surgical intervention ) and other (incision lateral hip c/d/i. ), knee Details: normal to inspection and normal ROM; no tenderness and no swelling, lower leg (Negative Bobby's Sign ) Details: no edema, ankle (+ankle dorsiflexion/plantarflexion ) Details: normal to inspection , no edema and normal ROM; no tenderness, no swelling and no warmth and foot Details: normal capillary refill, toes with normal ROM, vascular exam Details: dorsalis pedis pulse present and motor-sensory exam light-touch normal in all toes; no tenderness, no ecchymosis and no crepitus Psych: Mental Status: mental status grossly normal Affect: normal affect Objective Data Vital Signs Vital Signs: Vital Signs - 24 hr 09/11/25 11:45 09/11/25 15:54 09/11/25 21:10 Temperature 36.1 C L 36.8 C 36.8 C Pulse Rate 79 88 85 Respiratory Rate 18 16 18 Blood Pressure 115/58 L 127/44 L 117/57 L Pulse Oximetry 94 93 96 09/12/25 05:20 Temperature 37.1 C Pulse Rate 91 Respiratory Rate 20 Blood Pressure 119/66 Pulse Oximetry 94 Intake/Output Intake/Output: Intake & Output 09/09/25 09/10/25 09/11/25 09/12/25 23:59 23:59 23:59 23:59 Intake Total 192 419 5074 340 Output Total 450 1500 1000 Balance -210 -960 316 340 Meds/Results Medications: Active Medications Generic Name Dose Route Start Last Admin Trade Name Freq PRN Reason Stop Dose Admin Acetaminophen 500 mg 09/10/25 16:20 Acetaminophen 500 Mg Tablet PO Q6H PRN Pain Rated 1-3 Diazepam 5 mg 09/10/25 16:20 Diazepam (*Crx) 5 Mg Tablet PO Q8H PRN Muscle Spasm Enoxaparin Sodium 40 mg 09/11/25 09:00 09/12/25 08:25 Enoxaparin 40 Mg/0.4 Ml Syringe SUB-Q 40 mg DAILY CHRIS Administration Hydromorphone HCl 0.5 mg 09/10/25 16:20 Hydromorphone Hcl Inj (*Crx) 1 Mg/Ml Syr IV PUSH Q2H PRN Breakthrough Pain Rated 4-6 or NPO Hydromorphone HCl 1 mg 09/10/25 16:20 09/11/25 05:17 Hydromorphone Hcl Inj (*Crx) 1 Mg/Ml Syr IV PUSH 1 mg Q2H PRN Administration Breakthrough Pain Rated 7-10 or NPO Hydroxyzine Pamoate 50 mg 09/10/25 16:20 Hydroxyzine Pamoate 25 Mg Capsule PO Q4H PRN Itching Levothyroxine Sodium 125 mcg 09/09/25 08:30 09/12/25 05:34 Levothyroxine Sodium 125 Mcg Tablet BY MOUTH 125 mcg DAILY@0630 CHRIS Administration Multivitamins Therapeutic 1 tablet 09/09/25 09:00 09/12/25 08:25 Multivitamins Therapeutic Tab (*Bkc) PO 1 tablet DAILY CHRIS Administration Mycophenolate Mofetil 500 mg 09/09/25 09:00 09/12/25 08:25 Mycophenolate Mofetil 250 Mg Capsule PO 500 mg BID CHRIS Administration Naloxone HCl 0.1 mg 09/10/25 16:20 Naloxone Hcl 0.4 Mg/Ml Vial IV PUSH Q2M PRN Opiate Reversal Ondansetron HCl 4 mg 09/10/25 16:20 Ondansetron Inj 4 Mg/2 Ml Vial IV PUSH Q4H PRN Nausea And Vomiting Oxycodone/Acetaminophen 1 tablet 09/10/25 16:20 Oxycodone/Acetaminophen (*Crx) 5-325 Mg Tablet PO Q4H PRN Pain Rated 4-6 Oxycodone/Acetaminophen 1 tab 09/10/25 16:20 09/11/25 14:07 Oxycodone/Acetaminophen (*Crx) 10-325 Mg Tablet PO 1 tab Q6H PRN Administration Pain Rated 7-10 Pantoprazole Sodium 40 mg 09/09/25 09:00 09/12/25 08:25 Pantoprazole 40 Mg Tablet PO 40 mg QAM CHRIS Administration Polyethylene Glycol 17 gm 09/11/25 09:00 09/12/25 08:25 Polyethylene Glycol 3350 17 Gm Powd.Pack PO 17 gm QAM CHRIS Administration Senna/Docusate Sodium 2 tab 09/10/25 17:00 09/12/25 08:24 Senna/Docusate Sodium Tablet PO 2 tab BID CHRIS Administration Tacrolimus 1.5 mg 09/10/25 09:00 09/12/25 08:25 Tacrolimus 0.5 Mg Capsule PO 1.5 mg DAILY CHRIS Administration Tacrolimus 1 mg 09/09/25 21:00 09/11/25 20:38 Tacrolimus 0.5 Mg Capsule PO 1 mg HS CHRIS Administration Vitamin D 25 mcg 09/09/25 09:00 09/12/25 08:25 Cholecalciferol (Vitamin D3) 25 Mcg (1,000 Units) Tablet PO 25 mcg DAILY CHRIS Administration Radiology Results: ITS Impressions Chest X-Ray 09/09/25 06:52 IMPRESSION: 1. No acute cardiopulmonary findings given portable technique. Hip X-Ray 09/10/25 16:04 Impression: No acute fracture or malalignment. Labs Labs: Laboratory Results - last 24 hr 09/11/25 09/12/25 21:16 08:50 WBC 9.6 RBC 3.28 L Hgb 10.0 L Hct 30.8 L MCV 93.9 MCH 30.5 MCHC 32.5 RDW 12.9 Plt Count 148 L MPV 10.1 POC Capillary Glucose 161 H
[2025-09-12 09:28] LABS: Anion Gap 5 mmol/L (4-12); Blood Urea Nitrogen 13 mg/dL (7-17); Calcium 8.8 mg/dL (8.4-10.2); Carbon Dioxide 27 mmol/L (22-30); Chloride 98 mmol/L (98-107); Estimated CRCL calculation 61 ml/min; Estimated Glomerular Filt Rate > 60; Glucose 192 mg/dL (65-110); Potassium 3.6 mmol/L (3.4-5.0); Sodium 130 mmol/L (137-145)
[2025-09-12 14:11] VITALS: BP 115/61; PULSE 88; RESP 16; TEMP 37.5; O2SAT 95
--- NOTE | 2025-09-12 14:36 | P.PNIM_ITS ---
Progress Note: A&P Assessment and Plan (1) Fracture of femoral neck, left: Code(s): S72.002A - Fracture of unspecified part of neck of left femur, initial encounter for closed fracture Status: Acute Assessment and Plan: Mechanical ground level fall onto left hip Denies head strike or LOC Hip/pelvis XR: left femoral neck fx with no pelvic fx noted - use IS - SCDs/TEDs and lovenox for DVT ppx - analgesics, no longer requiring IV medication. Well controlled on orals per patient. - monitor labs in AM - CBC and BMP - bowel regimen continued, now having BM on 09/12 - PT/OT, WBAT per ortho - Ortho consulted s/p LEFT HIP HEMIARTHROPLASTY WITH BIPOLAR PROSTHESIS on 09/[address] Jiang - Care coordination following for placement, [facility] accepted however no bed today. Likely to discharge to [facility] tomorrow. (2) Hypothyroidism: Code(s): E03.9 - Hypothyroidism, unspecified Status: Acute Assessment and Plan: chronic, continue Synthroid 125 mcg daily (3) Hepatitis, autoimmune: Code(s): K75.4 - Autoimmune hepatitis Status: Acute Assessment and Plan: autoimmune hepatitis s/p transplant on chronic anti rejection meds Subjective Date/time seen: 09/12/25 14:36 Interval history: 65-year-old female with PMH/o GERD, hypothyroidism, autoimmune hepatitis s/p transplant, on chronic anti rejection meds admitted after mechanical fall onto her left hip. Patient is pleasant lying comfortably in bed. She states that her pain is well controlled on the current regimen and denies any associated tingling/numbness to the lower extremity. She continues to work well with therapy and is planning to go to [facility]. Per care coordination there is no available beds today so planning for discharge tomorrow. Patient has no other complaints denying chest pain, shortness a breath, palpitations, nausea/vomiting, abdominal pain. Review of Systems Review of Systems: All systems reviewed & are unremarkable except as noted in HPI and below Exam Narrative: AF HR 88 RR 16 Spo2 95 BP 115/61 General: female in no acute respiratory distress who is nontoxic appearing, sitting up in bed. HEENT: Normocephalic. Atraumatic.. Extraocular movement intact. Sclera clear and anicteric. No facial asymmetry. Chest: Lungs are clear to auscultation bilaterally. No wheezes or crackles. CV: Heart was regular rate and rhythm. Abd: Abdomen was soft. Nontender. Nondistended. Positive bowel sounds. Ext: No clubbing, cyanosis. Edema to the left hip with dressing clean/dry/intact. Mild bruising. DP pulses bilaterally. Neuro: Patient is alert and oriented x4. Speech is clear. Objective Data Vital Signs Vital Signs: Vital Signs - 24 hr 09/11/25 15:54 09/11/25 21:10 09/12/25 05:20 Temperature 98.2 F 98.2 F 98.8 F Pulse Rate 88 85 91 Respiratory Rate 16 18 20 Blood Pressure 127/44 L 117/57 L 119/66 Pulse Oximetry 93 96 94 Oxygen Delivery 09/12/25 08:00 09/12/25 14:11 Temperature 99.5 F Pulse Rate 88 Respiratory Rate 16 Blood Pressure 115/61 Pulse Oximetry 95 Oxygen Delivery Room Air Intake/Output Intake/Output: Intake & Output 09/09/25 09/10/25 09/11/25 09/12/25 23:59 23:59 23:59 23:59 Intake Total 842 370 9928 400 Output Total 450 1500 1000 Balance -210 -960 316 400 Meds/Results Medications: Active Medications Generic Name Dose Route Start Last Admin Trade Name Freq PRN Reason Stop Dose Admin Acetaminophen 500 mg 09/10/25 16:20 Acetaminophen 500 Mg Tablet PO Q6H PRN Pain Rated 1-3 Diazepam 5 mg 09/10/25 16:20 Diazepam (*Crx) 5 Mg Tablet PO Q8H PRN Muscle Spasm Enoxaparin Sodium 40 mg 09/11/25 09:00 09/12/25 08:25 Enoxaparin 40 Mg/0.4 Ml Syringe SUB-Q 40 mg DAILY CHRIS Administration Hydromorphone HCl 0.5 mg 09/10/25 16:20 Hydromorphone Hcl Inj (*Crx) 1 Mg/Ml Syr IV PUSH Q2H PRN Breakthrough Pain Rated 4-6 or NPO Hydromorphone HCl 1 mg 09/10/25 16:20 09/11/25 05:17 Hydromorphone Hcl Inj (*Crx) 1 Mg/Ml Syr IV PUSH 1 mg Q2H PRN Administration Breakthrough Pain Rated 7-10 or NPO Hydroxyzine Pamoate 50 mg 09/10/25 16:20 Hydroxyzine Pamoate 25 Mg Capsule PO Q4H PRN Itching Levothyroxine Sodium 125 mcg 09/09/25 08:30 09/12/25 05:34 Levothyroxine Sodium 125 Mcg Tablet BY MOUTH 125 mcg DAILY@0630 CHRIS Administration Multivitamins Therapeutic 1 tablet 09/09/25 09:00 09/12/25 08:25 Multivitamins Therapeutic Tab (*Bkc) PO 1 tablet DAILY CHRIS Administration Mycophenolate Mofetil 500 mg 09/09/25 09:00 09/12/25 08:25 Mycophenolate Mofetil 250 Mg Capsule PO 500 mg BID CHRIS Administration Naloxone HCl 0.1 mg 09/10/25 16:20 Naloxone Hcl 0.4 Mg/Ml Vial IV PUSH Q2M PRN Opiate Reversal Ondansetron HCl 4 mg 09/10/25 16:20 Ondansetron Inj 4 Mg/2 Ml Vial IV PUSH Q4H PRN Nausea And Vomiting Oxycodone/Acetaminophen 1 tablet 09/10/25 16:20 Oxycodone/Acetaminophen (*Crx) 5-325 Mg Tablet PO Q4H PRN Pain Rated 4-6 Oxycodone/Acetaminophen 1 tab 09/10/25 16:20 09/11/25 14:07 Oxycodone/Acetaminophen (*Crx) 10-325 Mg Tablet PO 1 tab Q6H PRN Administration Pain Rated 7-10 Pantoprazole Sodium 40 mg 09/09/25 09:00 09/12/25 08:25 Pantoprazole 40 Mg Tablet PO 40 mg QAM CHRIS Administration Polyethylene Glycol 17 gm 09/11/25 09:00 09/12/25 08:25 Polyethylene Glycol 3350 17 Gm Powd.Pack PO 17 gm QAM CHRIS Administration Senna/Docusate Sodium 2 tab 09/10/25 17:00 09/12/25 08:24 Senna/Docusate Sodium Tablet PO 2 tab BID CHRIS Administration Tacrolimus 1.5 mg 09/10/25 09:00 09/12/25 08:25 Tacrolimus 0.5 Mg Capsule PO 1.5 mg DAILY CHRIS Administration Tacrolimus 1 mg 09/09/25 21:00 09/11/25 20:38 Tacrolimus 0.5 Mg Capsule PO 1 mg HS CHRIS Administration Vitamin D 25 mcg 09/09/25 09:00 09/12/25 08:25 Cholecalciferol (Vitamin D3) 25 Mcg (1,000 Units) Tablet PO 25 mcg DAILY CHRIS Administration Radiology Results: ITS Impressions Chest X-Ray 09/09/25 06:52 IMPRESSION: 1. No acute cardiopulmonary findings given portable technique. Hip X-Ray 09/10/25 16:04 Impression: No acute fracture or malalignment. Labs Labs: Laboratory Results - last 24 hr 09/11/25 09/12/25 21:16 08:50 WBC 9.6 RBC 3.28 L Hgb 10.0 L Hct 30.8 L MCV 93.9 MCH 30.5 MCHC 32.5 RDW 12.9 Plt Count 148 L MPV 10.1 Sodium 130 L Potassium 3.6 Chloride 98 Carbon Dioxide 27 Anion Gap 5 BUN 13 Creatinine 0.88 Estim Creat Clear Calc 61 Estimated GFR > 60 Glucose 192 H POC Capillary Glucose 161 H Calcium 8.8 Quality VTE Prophylaxis VTE prophylaxis: pharmacologic ordered
[2025-09-12] MEDS: TACROLIMUS 0.5 MG CAPSULE 1 MG PO (20:13)
[2025-09-12 21:45] VITALS: BP 113/50; PULSE 84; RESP 16; TEMP 37.4; O2SAT 94
[2025-09-13] MEDS: LEVOTHYROXINE SODIUM 125 MCG TABLET BY MOUTH (05:48)
[2025-09-13 06:20] VITALS: BP 110/62; PULSE 85; RESP 18; TEMP 37.1; O2SAT 95
[2025-09-13] MEDS: PANTOPRAZOLE 40 MG TABLET PO (08:53)
[2025-09-13] MEDS: MULTIVITAMINS THERAPEUTIC TAB (*BKC) 1 TABLET PO (08:53)
[2025-09-13] MEDS: CHOLECALCIFEROL (VITAMIN D3) 25 MCG (1,000 UNITS) TABLET PO (08:54)
[2025-09-13] MEDS: TACROLIMUS 0.5 MG CAPSULE 1.5 MG PO (08:54)
[2025-09-13] MEDS: ENOXAPARIN 40 MG/0.4 ML SYRINGE SUB-Q (08:56)
--- NOTE | 2025-09-13 12:38 | P.DS_ITS ---
DS: Admitting Diagnosis Discharge Date 09/13 Admitting Diagnosis fall, femoral neck fx DS: Discharge Diagnosis Discharge Diagnosis (1) Fracture of femoral neck, left: Code(s): S72.002A - Fracture of unspecified part of neck of left femur, initial encounter for closed fracture Status: Acute (2) Hypothyroidism: Code(s): E03.9 - Hypothyroidism, unspecified Status: Acute Assessment and Plan: chronic, continue Synthroid 125 mcg daily (3) Hepatitis, autoimmune: Code(s): K75.4 - Autoimmune hepatitis Status: Acute Assessment and Plan: autoimmune hepatitis s/p transplant on chronic anti rejection meds DS: Summary Hospital Course Hospital Course: 65-year-old female with PMH/o GERD, hypothyroidism, autoimmune hepatitis s/p transplant, on chronic anti rejection meds admitted after mechanical fall onto her left hip. Mechanical ground level fall onto left hip Denies head strike or LOC Hip/pelvis XR: left femoral neck fx with no pelvic fx s/p LEFT HIP HEMIARTHROPLASTY WITH BIPOLAR PROSTHESIS on 09/[address] Jiang - SCDs/TEDs and lovenox for DVT ppx - analgesics, no longer requiring IV medication. Well controlled on orals per patient. - bowel regimen continued, now having BM on 09/12 - PT/OT, WBAT per ortho - Care coordination following for placement, [facility] accepted however no bed today. Likely to discharge to [facility] tomorrow. safe for discharge today, 09/13 Status at Discharge Functional status at discharge: uses cane/walker Overall status at discharge: patient is progressing back to baseline Time Spent with Patient Time attestation: Total time spent providing and/or coordinating discharge services: Time spent: Less than 30 minutes Exam Narrative: General: female in no acute respiratory distress who is nontoxic appearing, sitting up in bed. HEENT: Normocephalic. Atraumatic.. Extraocular movement intact. Sclera clear and anicteric. No facial asymmetry. Chest: Lungs are clear to auscultation bilaterally. No wheezes or crackles. CV: Heart was regular rate and rhythm. Abd: Abdomen was soft. Nontender. Nondistended. Positive bowel sounds. Ext: No clubbing, cyanosis. Edema to the left hip with dressing clean/dry/intact. Mild bruising. DP pulses bilaterally. Neuro: Patient is alert and oriented x4. Speech is clear. Const: General: comfortable Resp: Effort & Inspection: normal respiratory effort Auscultation: clear to auscultation bilaterally Cardio: Rate: regular rate Rhythm: regular rhythm GI: Auscultation: normal bowel sounds Urinary Catheter: Urinary Catheter: patent and draining Skin: General skin exam: normal color Neuro: Speech: normal speech Extrem: General: normal to inspection Other: skin is BLE warm to touch, pedal pulses present Psych: Mental Status: mental status grossly normal Affect: normal affect Discharge Plan Discharge Attending physician on discharge: Denys Segundo Consulting providers: Roberto Jiang; Tanya Cee; Doris Alcantar Discharging Clinician: Alaina Orellana Patient Disposition: [facility] Activity: may shower, no driving and follow weight bearing status Diet: as tolerated Wound Care Instructions: follow printed instructions Discharge Instructions: Postoperative Hip Fracture Instructions Dr. Roberto Jiang [phone] * Dressing to be changed daily with an island dressing beginning on post op day #2. May stop dressing changes at post op day #14. [place] to be removed on post op day #14 * Weight bearing: Weight bearing as tolerated. * You may shower with your dressing but do not submerge in a bath tub. * Do not drive or operate machinery until you are released by your surgeon. * Do not walk without a walker for any reason until you are released by your surgeon. * DVT prophylaxis x28 days post op. * Continue to apply ice to the hip intermittently for additional pain relief. Protect your skin with a towel or pillow case. * Continue to follow strict hip fracture precautions. * Please contact our office with any questions/concerns regarding your hip at [phone]. * Follow up appointment instructions indicated below. Patient Language: Irish Follow-up/Referrals: Roberto Jiang MD [Physician, Orthopedics] - 10/23/25 2:45 pm Discharge Medications: New oxycodone-acetaminophen 5-325 mg Tablet 1 tablet PO Q4H PRN (Reason: pain) Qty: 30 0RF enoxaparin [Lovenox] 40 mg/0.4 mL Syringe 40 mg subcut DAILY 28 Days Qty: 11.2 0RF Continued mycophenolate mofetil 500 mg tablet 500 mg PO BID multivitamin Tablet 1 tablet PO DAILY tacrolimus 0.5 mg capsule 2.5 mg PO Q12H Rx Instructions: 1.5mg in am and 1mg at bedtime omeprazole 20 mg capsule,delayed release(DR/EC) 20 mg PO DAILY cholecalciferol (vitamin D3) 25 mcg (1,000 unit) capsule 25 mcg PO DAILY Citracal Plus Bone Density 300-200-13.5 mg-unit-mg tablet 1 tablet PO DAILY levothyroxine 125 mcg tablet See Rx Instructions .ROUTE .COMPLEX Qty: 90 1RF Dose Instruction: TAKE 1 TABLET BY MOUTH DAILY Rx Instructions: TAKE 1 TABLET BY MOUTH DAILY Date of admission: 09/09/25 10:15 Primary Care Provider: Oswald Cuellar Admitting Provider: Dion Ruiz Attending physician on admission: Dion Ruiz Condition: Stable Quality VTE Prophylaxis VTE prophylaxis: pharmacologic ordered Hospitalist MIPS Heart Failure (Exclusion) Patient has history of Heart Transplant or Left Ventricular Assistive Device?: No IF YES, STOP HERE Heart Failure (Qualifier) Patient has current or prior documentation of LVEF less than or equal to 40%, or mod/servere depressed LVSF?: No IF NO, STOP HERE
== END 2025-09-13 14:10 | DRG 522 ==
LOC: ANHED 06:41 → ANH3MEDSUR 07:33
PROVIDERS: Orthopaedic Surgery; Student in an Organized Health Care Education/Training Program; Admitting Provider Internal Medicine; Emergency Provider Student in an Organized Health Care Education/Training Program; PCP Family Medicine; Visit Provider Nurse Practitioner
PROC: 0SRS01A Replacement of Left Hip Joint, Femoral Surface with Metal Synthetic Substitute, Uncemented, Open Approach (ICD-10-PCS; CPT 27125; principal; 2025-09-10 10:25)
DX: S72.002A Fracture of unspecified part of neck of left femur, initial encounter for closed fracture (principal); Z94.4 Liver transplant status; E03.9 Hypothyroidism, unspecified; K75.4 Autoimmune hepatitis; K21.9 Gastro-esophageal reflux disease without esophagitis; G62.0 Drug-induced polyneuropathy; T45.1X5A Adverse effect of antineoplastic and immunosuppressive drugs, initial encounter; M19.90 Unspecified osteoarthritis, unspecified site; W18.39XA Other fall on same level, initial encounter; Z79.620 Long term (current) use of immunosuppressive biologic
CPT/HCPCS: 36415; 71045; 73501; 73502; 80048; 82948; 85025; 85027; 85610; 85730; 86850; 86900; 86901; 96374; 97110; 97161; 97166; 97530; 97535; 99285; J0690; A9270; C1776; G0378; J1171; J1200; J1650; J2003; J2371; J2405; J2704; J3010; J3290; J7120; J7517